=== PATIENT | female | born 1945 | race Caucasian/White ===

== ENCOUNTER 2016-11-05 04:11 | Emergency (ER) | payer MEDICARE ==
[2016-11-05 05:09] LABS: ABSOLUTE EOSINOPHILS # (AUTO) 0.1 10^3/uL (0.0-0.6); ABSOLUTE LYMPHOCYTES (AUTO) 1.7 10^3/uL (0.5-4.7); ABSOLUTE MONOCYTES (AUTO) 0.4 10^3/uL (0.1-1.4); ABSOLUTE NEUT (AUTO) 4.1 10^3/uL (1.7-8.2); BASOPHILS % (AUTO) 0.5 % (0-2); EOSINOPHILS % (AUTO) 1.3 % (0-6); HEMOGLOBIN 13.1 g/dL (12.0-15.5); HGB HCT DIFFERENCE -1.7; MEAN CORPUSCULAR HEMOGLOBIN 30.2 pg (27.0-33.4); MEAN CORPUSCULAR HGB CONC 31.9 g/dL (32.0-36.0); MEAN CORPUSCULAR VOLUME 95 fl (80-97); MONOCYTES % (AUTO) 6.3 % (3-13); RED BLOOD COUNT 4.34 10^6/uL (3.72-5.28); RED CELL DISTRIBUTION WIDTH 13.6 % (11.5-14.0); SEGMENTED NEUTROPHILS % (AUTO) 64.9 % (42-78); WHITE BLOOD COUNT 6.3 10^3/uL (4.0-10.5)
[2016-11-05 05:12] LABS: PROTHROMBIN TIME 11.9 SEC (11.4-15.4)
[2016-11-05 05:28] LABS: ALBUMIN 3.9 g/dL (3.5-5.0); ALKALINE PHOSPHATASE 73 U/L (38-126); ANION GAP 13 (5-19); ASPARTATE AMINO TRANSFERASE 16 U/L (14-36); BLOOD UREA NITROGEN 16 mg/dL (7-20); CALCIUM 9.3 mg/dL (8.4-10.2); CARBON DIOXIDE 26 mmol/L (22-30); CHLORIDE 103 mmol/L (98-107); CREATININE RESULT 0.83 mg/dL (0.52-1.25); GLUCOSE 135 mg/dL (75-110); POTASSIUM 4.3 mmol/L (3.6-5.0); SODIUM 141.6 mmol/L (137-145)
[2016-11-05 05:29] LABS: ALANINE AMINOTRANSFERASE 15 U/L (9-52); BILIRUBIN,TOTAL 0.7 mg/dL (0.2-1.3); CREATINE KINASE 35 U/L (30-135); TOTAL PROTEIN 6.4 g/dL (6.3-8.2)
[2016-11-05 05:42] LABS: CREATINE KINASE MB 0.32 ng/mL (<4.55)
[2016-11-05 05:44] LABS: TROPONIN I < 0.012 ng/mL
--- NOTE | 2016-11-05 06:41 | ER Document Report ---
ED Fall - General Mode of Arrival: Medic Information source: Patient TRAVEL OUTSIDE OF THE [place] IN LAST 30 DAYS: No - HPI Patient complains to provider of: Fall Occurred: This morning - 0100 Where: Home Associated symptoms: Difficulty walking - R. Knee Replaced Location of injury/pain: Head, Knee <ROSS RIVAS - Last Filed: 11/05/16 07:36> <JUANCARLOS EDWARDS - Last Filed: 11/05/16 07:52> - General Chief Complaint: Fall Stated Complaint: DIZZINESS Notes: Patient is a 71-year-old female presenting to the emergency department after falling down this morning at approximately 0100. Patient states that she has been having problems with her right knee ever since she had a knee replacement 7 -8 years ago at [facility]. Since then, patient has had a nerve block done 2 times ( 2016). Patient states that her right knee "just gives way." Patient complains of a headache from hitting her head when she fell. Patient states that she lives with her , but he was hooked up to his CPAP and did not hear her when she called for help this morning. (ROSS RIVAS) - Related data Allergies/Adverse Reactions: Penicillins Allergy (Verified 03/04/15 12:38) Past Medical History - General Information source: Patient - Social History Smoking Status: Current Every Day Smoker Cigarette use (# per day): Yes Lives with: Spouse/Significant other Family History: Reviewed & Not Pertinent - Past Medical History Cardiac Medical History: Reports: Hx Hypercholesterolemia, Hx Hypertension Pulmonary Medical History: Reports: Hx COPD Endocrine Medical History: Reports: Hx Diabetes Mellitus Type 2 Past Surgical History: Reports: Hx Appendectomy, Hx Orthopedic Surgery - R. knee replacement, Hx Tubal Ligation - Immunizations Hx Diphtheria, Pertussis, Tetanus Vaccination: Yes Hx Pneumococcal Vaccination: 07/17/12 <ROSS RIVAS - Last Filed: 11/05/16 07:36> Review of Systems - Review of Systems Constitutional: No symptoms reported EENT: No symptoms reported Cardiovascular: No symptoms reported Respiratory: No symptoms reported Gastrointestinal: No symptoms reported Genitourinary: No symptoms reported Female Genitourinary: No symptoms reported Musculoskeletal: See HPI, Joint pain - R. Knee Skin: No symptoms reported Hematologic/Lymphatic: No symptoms reported Neurological/Psychological: Headaches -: Yes All other systems reviewed and negative <ROSS RIVAS - Last Filed: 11/05/16 07:36> Physical Exam - Vital signs Interpretation: Normal - General General appearance: Appears well, Alert - HEENT Head: Normocephalic, Atraumatic Eyes: Normal Pupils: PERRL - Respiratory Respiratory status: No respiratory distress Chest status: Nontender Breath sounds: Wheezing - Mild wheezes Chest palpation: Normal - Cardiovascular Rhythm: Regular Heart sounds: Normal auscultation Murmur: No - Abdominal Inspection: Normal Distension: No distension Tenderness: Nontender - Back Back: Normal, Nontender - Extremities General upper extremity: Normal inspection General lower extremity: Tender. No: Edema Knee: Tender - R. Knee tenderness. No edema. - Neurological Neuro grossly intact: Yes Cognition: Normal [place] Coma Scale Eye Opening: Spontaneous [place] Coma Scale Verbal: Oriented [place] Coma Scale Motor: Obeys Commands [place] Coma Scale Total: 15 Speech: Normal - Psychological Associated symptoms: Normal affect, Normal mood - Skin Skin Temperature: Warm Skin Moisture: Dry Skin Color: Normal <ROSS RIVAS - Last Filed: 11/05/16 07:36> Course - Laboratory Result Diagrams: 11/05/16 04:53 11/05/16 04:53 <ROSS RIVAS - Last Filed: 11/05/16 07:36> - Laboratory Result Diagrams: 11/05/16 04:53 11/05/16 04:53 <JUANCARLOS EDWARDS - Last Filed: 11/05/16 07:52> - Vital Signs Vital signs: Temp Pulse Resp BP Pulse Ox 97.5 F 98 16 148/53 H 95 11/05/16 04:17 11/05/16 04:17 11/05/16 04:17 11/05/16 04:17 11/05/16 04:17 (ROSS RIVAS) (JUANCARLOS EDWARDS) - Laboratory Laboratory results interpreted by mn: 11/05/16 11/05/16 11/05/16 04:53 04:53 04:53 MCHC 31.9 L Glucose 135 H POC Glucose Lactic Acid 2.5 H Urine Ketones 11/05/16 11/05/16 05:00 06:52 MCHC Glucose POC Glucose 138 H Lactic Acid Urine Ketones 20 H (ROSS RIVAS) (JUANCARLOS EDWARDS) Discharge <ROSS RIVAS - Last Filed: 11/05/16 07:36> <JUANCARLOS EDWARDS - Last Filed: 11/05/16 07:52> - Discharge Clinical Impression: Recurrent falls while walking Knee pain, chronic Qualifiers: Laterality: right Qualified Code(s): M25.561 - Pain in right knee; G89.29 - Other chronic pain Condition: Stable Disposition: HOME, SELF-CARE Additional Instructions: You did not appear to suffer any injury from your last 2 falls. Follow-up with your primary care provider or your orthopedic surgeon to discuss the problems you're having with your knee giving out. Scribe Attestation: 11/05/16 07:52 I personally performed the services described in the documentation, reviewed and edited the documentation which was dictated to the scribe in my presence, and it accurately records my words and actions. (JUANCARLOS EDWARDS) Scribe Documentation - Scribe Written by Scribe:: Ross Rivas 11/05/2016 0641 acting as scribe for :: Bonnie <ROSS RIVAS - Last Filed: 11/05/16 07:36>
[2016-11-05 07:12] LABS: APPEARANCE,URINE SLIGHTLY-CLOUDY; BILIRUBIN,URINE NEGATIVE (NEGATIVE); GLUCOSE, URINE NEGATIVE (NEGATIVE); KETONES,URINE 20 mg/dL (NEGATIVE); LEUKOCYTE ESTERASE,URINE NEGATIVE (NEGATIVE); NITRITE,URINE NEGATIVE (NEGATIVE); PROTEIN,URINE NEGATIVE (NEGATIVE); URINE SPECIFIC GRAVITY 1.033; UROBILINOGEN,URINE NEGATIVE mg/dL (<2.0)
--- NOTE | 2016-11-05 08:12 | EKG REPORT ---
SEVERITY:- ABNORMAL ECG - SINUS RHYTHM NONSPECIFIC T ABNORMALITIES, LATERAL LEADS BORDERLINE PROLONGED QT INTERVAL : Confirmed by: Thiago Gomez MD 05-Nov-2016 08:11:50
[2016-11-05 08:15] VITALS: BP 136/56
== END 2016-11-05 08:16 | disposition home or self-care (01) ==
LOC: ER 04:11
DX: R51 Headache (principal); W19.XXXA Unspecified fall, initial encounter; Y92.009 Unspecified place in unspecified non-institutional (private) residence as the place of occurrence of the external cause; R29.6 Repeated falls; M25.561 Pain in right knee; G89.29 Other chronic pain; Z96.651 Presence of right artificial knee joint; F17.210 Nicotine dependence, cigarettes, uncomplicated; I10 Essential (primary) hypertension; J44.9 Chronic obstructive pulmonary disease, unspecified; E11.9 Type 2 diabetes mellitus without complications; Z88.0 Allergy status to penicillin
CPT/HCPCS: 36415; 70450; 71020; 80053; 81001; 82550; 82553; 82962; 83605; 84484; 85025; 85610; 87040; 87086; 93005; 93010; 99285

== ENCOUNTER 2017-01-11 15:07 | Emergency (ER) | payer MEDICARE ==
--- NOTE | 2017-01-11 16:39 | ER Document Report ---
HPI - HPI Patient complains to provider of: chronic left wrist pain Onset: Other - 2 years Onset/Duration: Persistent, Waxing and waning Pain Level: 4 Context: 71-year-old female with chronic left wrist pain after fracturing 3 years ago. She also gets inflammation and a wound that has not healed in 2 years. She had a recent biopsy by a director of online education and they called her and told her that it was negative. Her to Joaquin is her primary care doctor she's not had any MRI of the joint. No history of osteomyelitis. 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 No fever. Hx copd, dm 2. Associated Symptoms: None Exacerbated by: Denies Relieved by: Other - When lidocaine was inserted for the tissue biopsy Similar symptoms previously: Yes Recently seen / treated by doctor: Yes - ROS ROS below otherwise negative: Yes Systems Reviewed and Negative: Yes All other systems reviewed and negative - CARDIOVASCULAR Cardiovascular: DENIES: Chest pain - REPRODUCTIVE Reproductive: DENIES: : - DERM Skin Color: Normal, [place] Past Medical History - General Information source: Patient - Social History Smoking Status: Former Smoker Chew tobacco use (# tins/day): No Frequency of alcohol use: None Drug Abuse: None Lives with: Spouse/Significant other Family History: Reviewed & Not Pertinent Patient has suicidal ideation: No Patient has homicidal ideation: No - Past Medical History Cardiac Medical History: Reports: Hx Hypercholesterolemia, Hx Hypertension Pulmonary Medical History: Reports: Hx COPD Endocrine Medical History: Reports: Hx Diabetes Mellitus Type 2 Renal/ Medical History: Denies: Hx Peritoneal Dialysis Past Surgical History: Reports: Hx Appendectomy, Hx Orthopedic Surgery - R. knee replacement, Hx Tubal Ligation - Immunizations Hx Diphtheria, Pertussis, Tetanus Vaccination: Yes Hx Pneumococcal Vaccination: 07/17/12 Vertical Provider Document - CONSTITUTIONAL Agree With Documented VS: Yes - INFECTION CONTROL TRAVEL OUTSIDE OF THE [place] IN LAST 30 DAYS: No - HEENT HEENT: Normocephalic - NECK Neck: Supple - RESPIRATORY O2 Sat by Pulse Oximetry: 93 - MUSCULOSKELETAL/EXTREMETIES Musculoskeletal/Extremeties: MAEW, FROM, Tender - left ulnar styloid - NEURO Level of Consciousness: Awake, Alert, Appropriate Motor/Sensory: No Motor Deficit, No Sensory Deficit - DERM Integumentary: Rash - dense inflamed soft tissue over dorsal left wrist with round ulcer, 1cm, rolled borders. Course - Re-evaluation Re-evalutation: 01/11/17 16:[address] Edmond the radiologist to recommend getting a plain film to start with and that if that is negative Dr. Duke can order an MRI of the left wrist joint with and without contrast. 01/11/17 18:00 X-ray shows off tissue swelling but no bony osteomyelitis. 01/11/17 18:00 - Vital Signs Vital signs: Temp Pulse Resp BP Pulse Ox 98.3 F 83 18 168/56 H 93 01/11/17 15:30 01/11/17 15:30 01/11/17 15:35 01/11/17 15:30 01/11/17 15:30 Discharge - Discharge Clinical Impression: chronic ulcer left wrist, Inflammation, skin, Left wrist pain Condition: Good Disposition: HOME, SELF-CARE Instructions: Wound Infection ([facility]), Ulcer ([facility]), Chronic Pain Control ([facility]) Additional Instructions: use the lidocaine jelly to help relieve topical pain vaselin or bacitracin only with tegaderm over the wound to help heal it daily f/u with the director of online education see dr. duke for a outpatient order for MR with and without contrast of the wrist joint/skin per radiologist suggestion to look for destinee problems/bone infection/skin infection Please complete the patient satisfaction survey if you get one, and return it.. If you do not receive a survey, then you can go to the [facility] website, [email or web address] and place your comments about your very good care. Thank you very much. It was a pleasure being your medical provider today. Prescriptions: Clindamycin HCl [Cleocin 150 mg Capsule] 150 mg PO QID #30 capsule Lidocaine 15 gm TP TID #15 cream..g. Referrals: RAJESH DUKE MD [Primary Care Provider] - Follow up tomorrow
[2017-01-11] MEDS ORDERED: MORPHINE SULFATE 10 MG/ML INJ IV ONE (16:43)
[2017-01-11] MEDS ORDERED: LIDOCAINE 2% JELLY 5 ML TUBE TOP ONE (17:58)
[2017-01-11 18:18] VITALS: BP 160/60
== END 2017-01-11 18:18 | disposition home or self-care (01) ==
LOC: ER 15:07
DX: L98.499 Non-pressure chronic ulcer of skin of other sites with unspecified severity (principal); M25.532 Pain in left wrist; Z98.890 Other specified postprocedural states; Z79.899 Other long term (current) drug therapy; Z87.891 Personal history of nicotine dependence
CPT/HCPCS: 99283; 96374; 87070; 87205; 73110; J2270

== ENCOUNTER → 2017-02-01 | Outpatient (CLI) | payer MEDICARE | LOC: RAD 09:49 | PROVIDERS: ATTEND Family Medicine | DX: M86.9 Osteomyelitis, unspecified (principal); M19.032 Primary osteoarthritis, left wrist | CPT/HCPCS: 82565; 73220; A9576 ==

== ENCOUNTER 2017-03-31 17:53 | Emergency (ER) | payer MEDICARE ==
[2017-03-31] MEDS ORDERED: LIDOCAINE 2% JELLY 5 ML TUBE TOP ONE (19:01)
[2017-03-31] MEDS ORDERED: KETOROLAC TROMETHAMINE 60 MG/2 ML SDV IM ONE (19:02)
--- NOTE | 2017-03-31 19:04 | ER Document Report ---
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 no new injury - REPRODUCTIVE Reproductive: DENIES: : - DERM Skin Color: Normal Past Medical History - Social History Smoking Status: Current Every Day Smoker Family History: Reviewed & Not Pertinent Patient has suicidal ideation: No Patient has homicidal ideation: No - Past Medical History Cardiac Medical History: Reports: Hx Hypercholesterolemia, Hx Hypertension Pulmonary Medical History: Reports: Hx COPD Endocrine Medical History: Reports: Hx Diabetes Mellitus Type 2 Renal/ Medical History: Denies: Hx Peritoneal Dialysis Past Surgical History: Reports: Hx Appendectomy, Hx Orthopedic Surgery - R. knee replacement, Hx Tubal Ligation - Immunizations Hx Diphtheria, Pertussis, Tetanus Vaccination: Yes Hx Pneumococcal Vaccination: 07/17/12 Vertical Provider Document - CONSTITUTIONAL Agree With Documented VS: Yes Exam Limitations: No Limitations General Appearance: WD/WN, No Apparent Distress - INFECTION CONTROL TRAVEL OUTSIDE OF THE [place] IN LAST 30 DAYS: No - RESPIRATORY O2 Sat by Pulse Oximetry: 91 - CARDIOVASCULAR Pulses: Normal: Radial - MUSCULOSKELETAL/EXTREMETIES Musculoskeletal/Extremeties: MAEW, FROM, Non-Tender - of the wrist or hand, No Edema - NEURO Level of Consciousness: Awake, Alert, Appropriate Motor/Sensory: No Motor Deficit, No Sensory Deficit - DERM Integumentary: Warm, Dry Notes: ulceration that is tender to touch over distal ulnar head Course - Re-evaluation Re-evalutation: 03/31/17 22:08 Patient is a 72-year-old female presents with chronic left wrist pain that has been worked up for osteomyelitis given nonhealing ulceration by her primary care. She has been evaluated by Dr. Castillo being treated for osteoarthritis and is due to see him in 6 weeks. Patient has responded well to lidocaine jelly topically on her complaint. Was sent home with prescription and can follow-up with primary care. - Vital Signs Vital signs: Temp Pulse Resp BP Pulse Ox 98.5 F 117 H 18 156/71 H 91 L 03/31/17 18:09 03/31/17 18:09 03/31/17 18:09 03/31/17 18:09 03/31/17 18:09 Discharge - Discharge Clinical Impression: Chronic wrist pain Condition: Good Disposition: HOME, SELF-CARE Additional Instructions: use the lidocaine jelly to help relieve topical pain vaselin or bacitracin only with bandaid over the wound to help heal it daily f/u with Pain management Prescriptions: Lidocaine 15 gm TP TID #1 cream..g. Forms: Elevated Blood Pressure Referrals: RAJESH CISNEROS MD [COMMUNITY BASED STAFF] - Follow up as needed
[2017-03-31 19:47] VITALS: BP 148/69
== END 2017-03-31 19:35 | disposition home or self-care (01) ==
LOC: ER 17:53
DX: E11.622 Type 2 diabetes mellitus with other skin ulcer (principal); L98.499 Non-pressure chronic ulcer of skin of other sites with unspecified severity; M25.532 Pain in left wrist; G89.29 Other chronic pain; F17.200 Nicotine dependence, unspecified, uncomplicated; I10 Essential (primary) hypertension; J44.9 Chronic obstructive pulmonary disease, unspecified; M19.90 Unspecified osteoarthritis, unspecified site
CPT/HCPCS: 99283; 96372; J1885

== ENCOUNTER 2017-04-15 15:14 | Emergency (ER) | payer MEDICARE ==
[2017-04-15 15:23] VITALS: BP 141/73
--- NOTE | 2017-04-15 16:19 | ER Document Report ---
ED Medical Screen (RME) - General Chief Complaint: Wrist Pain Stated Complaint: LEFT WRIST PAIN Time Seen by Provider: 04/15/17 16:17 Mode of Arrival: Wheelchair Information source: Patient Notes: 72-year-old female presents to ED for complaint of left wrist pain swelling and "fluid draining out of it "for a long time now. She states she is not home until somebody can tell her what is wrong with her left wrist she states of nobody here will tell her that she will go to the another hospital. States that the doctor gave her some lidocaine to put on this wrist and the drainage started she states she knows she got lidocaine buildup in this wrist and some he needs to tell her what to do to get rid of it. She states she has been sick to her stomach and week and vomiting 1 week. She is also wheezing audibly. She has a history of COPD she has wheezes in all lungs inspiratory and expiratory. I have greeted and performed a rapid initial assessment of this patient. A comprehensive ED assessment and evaluation of the patient, analysis of test results and completion of medical decision making process will be conducted by an additional ED providers. TRAVEL OUTSIDE OF THE [place] IN LAST 30 DAYS: No - Related Data Allergies/Adverse Reactions: Penicillins Allergy (Verified 03/31/17 18:08) Past Medical History - Past Medical History Cardiac Medical History: Reports: Hx Hypercholesterolemia, Hx Hypertension Pulmonary Medical History: Reports: Hx COPD Endocrine Medical History: Reports: Hx Diabetes Mellitus Type 2 Renal/ Medical History: Denies: Hx Peritoneal Dialysis Musculoskeltal Medical History: Reports Hx Arthritis Past Surgical History: Reports: Hx Appendectomy, Hx Orthopedic Surgery - R. knee replacement, Hx Tubal Ligation - Immunizations Hx Diphtheria, Pertussis, Tetanus Vaccination: Yes Physical Exam - Vital signs Vitals: Temp Pulse Resp BP Pulse Ox 99.2 F 121 H 14 141/73 H 92 04/15/17 15:17 04/15/17 15:17 04/15/17 15:17 04/15/17 15:17 04/15/17 15:17 Course - Vital Signs Vital signs: Temp Pulse Resp BP Pulse Ox 99.2 F 121 H 14 141/73 H 92 04/15/17 15:17 04/15/17 15:17 04/15/17 15:17 04/15/17 15:17 04/15/17 15:17
[2017-04-15 16:49] LABS: ABSOLUTE BASOPHILS # (AUTO) 0.1 10^3/uL (0.0-0.2); ABSOLUTE EOSINOPHILS # (AUTO) 0.2 10^3/uL (0.0-0.6); ABSOLUTE LYMPHOCYTES (AUTO) 3.9 10^3/uL (0.5-4.7); ABSOLUTE MONOCYTES (AUTO) 0.8 10^3/uL (0.1-1.4); ABSOLUTE NEUT (AUTO) 4.3 10^3/uL (1.7-8.2); BASOPHILS % (AUTO) 0.7 % (0-2); EOSINOPHILS % (AUTO) 1.7 % (0-6); HEMATOCRIT 45.8 % (36.0-47.0); HEMOGLOBIN 14.7 g/dL (12.0-15.5); HGB HCT DIFFERENCE -1.7; LYMPHOCYTES % (AUTO) 42.4 % (13-45); MEAN CORPUSCULAR HEMOGLOBIN 30.7 pg (27.0-33.4); MEAN CORPUSCULAR HGB CONC 32.1 g/dL (32.0-36.0); MEAN CORPUSCULAR VOLUME 96 fl (80-97); SEGMENTED NEUTROPHILS % (AUTO) 46.2 % (42-78); WHITE BLOOD COUNT 9.3 10^3/uL (4.0-10.5)
[2017-04-15] MEDS ORDERED: IPRATROPIUM/ALBUTEROL 0.5-2.5 MG/3 ML AMPUL NEB ONE (16:57)
[2017-04-15] MEDS ORDERED: ALBUTEROL SULFATE 0.083% NEB 2.5 MG/3 ML AMPUL NEB SCH (17:00)
[2017-04-15 17:10] LABS: ALANINE AMINOTRANSFERASE 21 U/L (9-52); ALBUMIN 4.3 g/dL (3.5-5.0); ALKALINE PHOSPHATASE 78 U/L (38-126); ANION GAP 11 (5-19); ASPARTATE AMINO TRANSFERASE 19 U/L (14-36); BILIRUBIN,DIRECT 0.3 mg/dL (0.0-0.4); BILIRUBIN,TOTAL 0.7 mg/dL (0.2-1.3); BLOOD UREA NITROGEN 11 mg/dL (7-20); CALCIUM 9.9 mg/dL (8.4-10.2); CARBON DIOXIDE 28 mmol/L (22-30); CHLORIDE 101 mmol/L (98-107); GLUCOSE 131 mg/dL (75-110); POTASSIUM 5.1 mmol/L (3.6-5.0); SODIUM 139.5 mmol/L (137-145); TOTAL PROTEIN 7.4 g/dL (6.3-8.2)
--- NOTE | 2017-04-15 17:14 | RADIOLOGY REPORT (SQ) ---
EXAM DESCRIPTION: CHEST PA/LAT COMPLETED DATE/TIME: 04/15/2017 4:39 pm REASON FOR STUDY: short of breath and wheezing COMPARISON: 11/05/2016 EXAM PARAMETERS: NUMBER OF VIEWS: two views TECHNIQUE: Digital Frontal and Lateral radiographic views of the chest acquired. RADIATION DOSE: NA LIMITATIONS: none FINDINGS: LUNGS AND PLEURA: Minimal parenchymal opacity at the right base. Left lung is clear. Und erlying COPD with hyperinflation. MEDIASTINUM AND HILAR STRUCTURES: No masses or contour abnormalities. HEART AND VASCULAR STRUCTURES: Heart normal size. No evidence for failure. BONES: No acute findings. HARDWARE: None in the chest. OTHER: No other significant finding. 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 TECHNICAL DOCUMENTATION: JOB ID: [id number] [employer]- All Rights Reserved
--- NOTE | 2017-04-15 23:55 | ER Document Report ---
ED General - General Chief Complaint: Wrist Pain Stated Complaint: LEFT WRIST PAIN Time Seen by Provider: 04/15/17 16:17 Mode of Arrival: Wheelchair Information source: Patient Notes: This 72-year-old female with a history of COPD and a long history of left wrist arthritis who presents to the emergency room with swelling of the left wrist. There is any fever, chills, nausea or vomiting. She denies any cough or any increased sputum production. Patient states that she has been seen by the orthopedic surgeon for this and that he is injected the area with steroids but it has not worked. Is also seen her primary care doctor (Dr. Cisneros) for the same. TRAVEL OUTSIDE OF THE [place] IN LAST 30 DAYS: No - HPI Onset: Other - the past year Onset/Duration: Gradual Quality of pain: Achy Severity: Mild Pain Level: 1 Associated symptoms: denies: Chills, Fever, Shortness of breath Exacerbated by: Denies Relieved by: Denies Similar symptoms previously: Yes Recently seen / treated by doctor: Yes - Related Data Allergies/Adverse Reactions: Penicillins Allergy (Verified 03/31/17 18:08) Past Medical History - General Information source: Patient - Social History Smoking Status: Current Every Day Smoker Cigarette use (# per day): Yes - 3 Cigarettes a day Chew tobacco use (# tins/day): No Frequency of alcohol use: None Drug Abuse: None Lives with: Alone Family History: Reviewed & Not Pertinent Patient has suicidal ideation: No Patient has homicidal ideation: No - Past Medical History Cardiac Medical History: Reports: Hx Hypercholesterolemia, Hx Hypertension Pulmonary Medical History: Reports: Hx COPD Endocrine Medical History: Reports: Hx Diabetes Mellitus Type 2 Renal/ Medical History: Denies: Hx Peritoneal Dialysis Musculoskeltal Medical History: Reports Hx Arthritis Past Surgical History: Reports: Hx Appendectomy, Hx Orthopedic Surgery - R. knee replacement, Hx Tubal Ligation - Immunizations Hx Diphtheria, Pertussis, Tetanus Vaccination: Yes Hx Pneumococcal Vaccination: 07/17/12 Review of Systems - Review of Systems Constitutional: denies: Chills, Fever EENT: No symptoms reported Cardiovascular: No symptoms reported Respiratory: Other - The patient does have COPD and has a chronic cough and does wheeze often. She does not have any worsening symptoms. Gastrointestinal: No symptoms reported Genitourinary: No symptoms reported Musculoskeletal: See HPI Skin: No symptoms reported Hematologic/Lymphatic: No symptoms reported Neurological/Psychological: No symptoms reported Physical Exam - Vital signs Vitals: Temp Pulse Resp BP Pulse Ox 99.2 F 121 H 14 141/73 H 92 04/15/17 15:17 04/15/17 15:17 04/15/17 15:17 04/15/17 15:17 04/15/17 15:17 Notes: Physical exam: GENERAL: 2-year-old female, alert and oriented 3, no acute distress HEAD: Atraumatic, normocephalic. EYES: Pupils equal round and reactive to light, extraocular movements intact, sclera anicteric, conjunctiva are normal. ENT: Moist mucous membranes. NECK: Normal range of motion, supple without lymphadenopathy or JVD. LUNGS: Scattered wheezing bilaterally. Patient does not appear in any significant respiratory distress. Crackles heard on exam. HEART: Regular rate and rhythm without murmurs, rubs or gallops. ABDOMEN: Soft, normoactive bowel sounds. No tenderness to palpation. No guarding, no rebound. No masses appreciated. EXTREMITIES: Does have some swelling over the left distal ulna. There is no erythema. She does have some scratch bhakta over the site. It will be any cellulitis NEUROLOGICAL: Cranial nerves II through XII grossly intact. Normal speech, normal gait. PSYCH: Normal mood, normal affect. SKIN: Noted above. Course - Re-evaluation Re-evalutation: 04/15/17 23:53 : The patient is not here for respiratory complaints and has been ambulating without difficulty. She is frustrated over her left wrist and has been evalauated by orthoapedics and was told she has arthritis. From a pulmonary point of view, the patient is stable. There is no evidence of pneumonia. From an orthopedic standpoint, she either has arthritis or bursitis. In any event, the area in question does not appear cellulitic and there does not appear to be any infection in the joint. Plan will be for her to follow-up as an outpatient. The patient did walk out on her own volition before discharge instructions were given. - Vital Signs Vital signs: Temp Pulse Resp BP Pulse Ox 99.2 F 121 H 14 141/73 H 92 04/15/17 15:17 04/15/17 15:17 04/15/17 15:17 04/15/17 15:17 04/15/17 15:17 - Laboratory Result Diagrams: 04/15/17 16:25 04/15/17 16:25 Laboratory results interpreted by me: 04/15/17 16:25 Potassium 5.1 H Glucose 131 H - Diagnostic Test Radiology reviewed: Image reviewed, Reports reviewed - Chest x-ray shows possible right infiltrate. The patient has not had any worsening symptoms of cough, fever or shortness of breath. Discharge - Discharge Clinical Impression: Wrist arthritis Condition: Stable Disposition: AGAINST MEDICAL ADVICE Referrals: CHRISTINE CISNEROS NP [Primary Care Provider] - Follow up as needed
== END 2017-04-15 19:25 | disposition home or self-care (01) ==
LOC: ER 15:14
DX: M19.032 Primary osteoarthritis, left wrist (principal); J44.9 Chronic obstructive pulmonary disease, unspecified; I10 Essential (primary) hypertension; E11.9 Type 2 diabetes mellitus without complications; R05 Cough; Z88.0 Allergy status to penicillin
CPT/HCPCS: 94640 ×2; 99283; 36415; 85025; 80053; 71020; A9270 ×2; J7620

== ENCOUNTER → 2017-04-18 | Outpatient (CLI) | payer MEDICARE ==
[2017-04-18 14:22] LABS: C-REACTIVE PROTEIN 13.3 mg/L (<10.0); URIC ACID 5.5 mg/dL (2.5-7.5)
[2017-04-20 07:57] LABS: LYME DISEASE IGG AND IGM AB <0.91 ISR (0.00-0.90)
== END ==
LOC: OD 12:48
PROVIDERS: ATTEND Orthopaedic Surgery
DX: M19.032 Primary osteoarthritis, left wrist (principal)
CPT/HCPCS: 36415; 84550; 85652; 86038; 86140; 86200; 86430; 86617; 86618

== ENCOUNTER 2017-04-28 01:23 | Emergency (ER) | payer MEDICARE ==
[2017-04-28] MEDS ORDERED: NORMAL SALINE 1000 ML 1,000 ML IV ONE (02:44)
[2017-04-28] MEDS ORDERED: ONDANSETRON HCL INJ/PF 4 MG/2 ML SDV IV ONE (02:44)
[2017-04-28] MEDS ORDERED: MORPHINE SULFATE 10 MG/ML INJ IV ONE (02:45)
[2017-04-28 03:14] LABS: ABSOLUTE BASOPHILS # (AUTO) 0.1 10^3/uL (0.0-0.2); ABSOLUTE LYMPHOCYTES (AUTO) 1.1 10^3/uL (0.5-4.7); ABSOLUTE MONOCYTES (AUTO) 0.3 10^3/uL (0.1-1.4); ABSOLUTE NEUT (AUTO) 8.9 10^3/uL (1.7-8.2); BASOPHILS % (AUTO) 0.6 % (0-2); EOSINOPHILS % (AUTO) 0.1 % (0-6); HEMATOCRIT 44.1 % (36.0-47.0); HEMOGLOBIN 14.3 g/dL (12.0-15.5); HGB HCT DIFFERENCE -1.2; LYMPHOCYTES % (AUTO) 10.9 % (13-45); MEAN CORPUSCULAR HGB CONC 32.5 g/dL (32.0-36.0); MEAN CORPUSCULAR VOLUME 95 fl (80-97); MONOCYTES % (AUTO) 2.7 % (3-13); RED BLOOD COUNT 4.62 10^6/uL (3.72-5.28); RED CELL DISTRIBUTION WIDTH 13.7 % (11.5-14.0); SEGMENTED NEUTROPHILS % (AUTO) 85.7 % (42-78); WHITE BLOOD COUNT 10.4 10^3/uL (4.0-10.5)
[2017-04-28 03:25] LABS: ALANINE AMINOTRANSFERASE 17 U/L (9-52); ALBUMIN 4.2 g/dL (3.5-5.0); ALKALINE PHOSPHATASE 69 U/L (38-126); ANION GAP 14 (5-19); ASPARTATE AMINO TRANSFERASE 20 U/L (14-36); BILIRUBIN,DIRECT 0.4 mg/dL (0.0-0.4); BILIRUBIN,TOTAL 0.7 mg/dL (0.2-1.3); BLOOD UREA NITROGEN 19 mg/dL (7-20); CALCIUM 9.8 mg/dL (8.4-10.2); CARBON DIOXIDE 18 mmol/L (22-30); CHLORIDE 107 mmol/L (98-107); CREATININE RESULT 0.95 mg/dL (0.52-1.25); GLUCOSE 188 mg/dL (75-110); POTASSIUM 5.3 mmol/L (3.6-5.0); SODIUM 139.4 mmol/L (137-145); TOTAL PROTEIN 7.2 g/dL (6.3-8.2)
--- NOTE | 2017-04-28 04:50 | ER Document Report ---
ED General - General Chief Complaint: Wrist Pain Stated Complaint: WRIST PAIN W NAUSEA Time Seen by Provider: 04/28/17 02:38 Notes: Patient is a 72-year-old female comes emergency department for chief complaint of pain in her left wrist and also nausea with vomiting. She states that for the past couple of days she has had no appetite and she has thrown up several times. She denies any fever, chills, dysuria, flank pain, abdominal pain, chest pain, or lightheadedness. She states that she started using a topical lidocaine cream on her wrist prescribed by orthopedics, she states after this she started getting the nausea. She states she has not had any pain in her abdomen whatsoever, she is moving her bowels normally. Past medical history of hypertension, type 2 diabetes, hyperlipidemia, arthritis, appendectomy. She states she had an MRI of her left upper extremity and no specific abnormality was noted. TRAVEL OUTSIDE OF THE [place] IN LAST 30 DAYS: No - Related Data Allergies/Adverse Reactions: Penicillins Allergy (Verified 03/31/17 18:08) Past Medical History - General Information source: Patient - Social History Smoking Status: Current Some Day Smoker Frequency of alcohol use: Occasional Drug Abuse: None Lives with: Family Family History: Reviewed & Not Pertinent Patient has suicidal ideation: No Patient has homicidal ideation: No - Past Medical History Cardiac Medical History: Reports: Hx Hypercholesterolemia, Hx Hypertension Pulmonary Medical History: Reports: Hx COPD Endocrine Medical History: Reports: Hx Diabetes Mellitus Type 2 Renal/ Medical History: Denies: Hx Peritoneal Dialysis Musculoskeltal Medical History: Reports Hx Arthritis Past Surgical History: Reports: Hx Appendectomy, Hx Orthopedic Surgery - R. knee replacement, Hx Tubal Ligation - Immunizations Hx Diphtheria, Pertussis, Tetanus Vaccination: Yes Hx Pneumococcal Vaccination: 07/17/12 Review of Systems - Review of Systems Constitutional: No symptoms reported EENT: No symptoms reported Cardiovascular: No symptoms reported Respiratory: No symptoms reported Gastrointestinal: See HPI Genitourinary: No symptoms reported Female Genitourinary: No symptoms reported Musculoskeletal: No symptoms reported Skin: No symptoms reported Hematologic/Lymphatic: No symptoms reported Neurological/Psychological: No symptoms reported Physical Exam - Vital signs Vitals: Temp Pulse Resp BP Pulse Ox 97.4 F 109 H 20 161/79 H 94 04/28/17 01:58 04/28/17 01:58 04/28/17 01:58 04/28/17 01:58 04/28/17 01:58 Interpretation: Normal - General General appearance: Appears well, Alert In distress: None - Patient alert, well appearing - HEENT Head: Normocephalic, Atraumatic Eyes: Normal Extraocular movements intact: Yes Eyelashes: Normal Pupils: PERRL Nasal: Normal Mouth/Lips: Normal Mucous membranes: Normal Pharynx: Normal Neck: Normal - Respiratory Respiratory status: No respiratory distress Chest status: Nontender Breath sounds: Normal. No: Decreased air movement, Wheezing Chest palpation: Normal - Cardiovascular Rhythm: Regular, Tachycardia - borderline Heart sounds: Normal auscultation, S1 appreciated, S2 appreciated Murmur: No - Abdominal Inspection: Normal Distension: No distension Bowel sounds: Normal Tenderness: Nontender - Completely nontender abdomen throughout. No: Tender, McBurney's point, Hogan's sign, Guarding Organomegaly: No organomegaly - Back Back: Normal, Nontender. No: Tender, CVA tenderness - Extremities General upper extremity: Other - There is some increased size aspect of the left wrist, appears to be mild soft tissue swelling, no significant arrhythmia, not significantly tender, no spreading erythema around it, normal capillary refill and sensation, normal upper extremity exam otherwise General lower extremity: Normal inspection, Nontender, Normal color, Normal ROM , Normal temperature, Normal weight bearing. No: Comfort's sign - Neurological Neuro grossly intact: Yes Cognition: Normal Orientation: AAOx4 [place] Coma Scale Eye Opening: Spontaneous [place] Coma Scale Verbal: Oriented Drew Coma Scale Motor: Obeys Commands [place] Coma Scale Total: 15 Speech: Normal Motor strength normal: LUE, RUE, LLE, RLE Sensory: Normal - Psychological Associated symptoms: Normal affect, Normal mood - Skin Skin Temperature: Warm Skin Moisture: Dry Skin Color: Normal Course - Re-evaluation Re-evalutation: Abdomen completely non-tender. Wrist exam unremarkable, does not appear to be an infection. Nausea resolved after medications, patient asking for fluids. CBC , chemistry nonspecific. Patient has not given a urine yet. Reexamined the patient's abdomen, still completely soft and benign. I did discuss CAT scan imaging because of patient's vomiting, she declined. Patient states she "spit up a little" after phenergan. She states she went to the medication that resolved on her tongue. Vitals unremarkable, workup unremarkable including urinalysis does not show any dehydration, well-appearing patient with soft abdomen. Patient will be discharged with nausea medication, follow-up recommendations with orthopedics, return precautions to the emergency department. Discussed with both patient and , they state agreement and satisfaction. - Vital Signs Vital signs: Temp Pulse Resp BP Pulse Ox 97.4 F 82 20 159/69 H 94 04/28/17 01:58 04/28/17 06:21 04/28/17 06:21 04/28/17 06:21 04/28/17 01:58 - Laboratory Result Diagrams: 04/28/17 03:02 04/28/17 03:02 Laboratory results interpreted by me: 04/28/17 04/28/17 03:02 03:02 Seg Neutrophils % 85.7 H Lymphocytes % 10.9 L Monocytes % 2.7 L Absolute Neutrophils 8.9 H Potassium 5.3 H Carbon Dioxide 18 L Est GFR (Non-Af Amer) 58 L Glucose 188 H Discharge - Discharge Clinical Impression: Left wrist pain Nausea and vomiting Qualifiers: Vomiting type: unspecified Vomiting Intractability: non-intractable Qualified Code(s): R11.2 - Nausea with vomiting, unspecified Condition: Stable Disposition: HOME, SELF-CARE Additional Instructions: Your workup and examination does not show any concerning abnormality. Take the Zofran for nausea, start with fluids, progress to bland foods. Only take the given pain medication if needed, you can cut this in half to begin with. Follow-up with orthopedics for management of your wrist Return to the Emergency department immediately if you develop any concerning or worsening symptoms including abdominal pain, fever, return for uncontrolled vomiting, or any other concerning symptoms per Prescriptions: Ondansetron [Zofran Odt 4 mg Tablet] 1 - 2 tab PO Q4H PRN #15 tab.rapdis PRN Reason: For Nausea/Vomiting
[2017-04-28 05:07] LABS: APPEARANCE,URINE CLEAR; BILIRUBIN,URINE NEGATIVE (NEGATIVE); GLUCOSE, URINE NEGATIVE (NEGATIVE); KETONES,URINE NEGATIVE (NEGATIVE); LEUKOCYTE ESTERASE,URINE NEGATIVE (NEGATIVE); NITRITE,URINE NEGATIVE (NEGATIVE); PROTEIN,URINE NEGATIVE (NEGATIVE); URINE SPECIFIC GRAVITY 1.019; UROBILINOGEN,URINE NEGATIVE mg/dL (<2.0)
[2017-04-28] MEDS ORDERED: PROMETHAZINE HCL 25 MG TABLET PO ONE (05:28)
[2017-04-28 06:22] VITALS: BP 159/69
[2017-04-28] MEDS ORDERED: ONDANSETRON ODT 4 MG TAB (6 TAB/DSPK) PO PRN (06:31)
[2017-04-28] MEDS ORDERED: HYDROCODONE/ACETAMINOPHEN 5-325 MG 6 TAB/DSPK PO PRN (06:31)
--- NOTE | 2017-04-28 08:20 | EKG REPORT ---
SEVERITY:- ABNORMAL ECG - SINUS RHYTHM GENARO, CONSIDER BIATRIAL ABNORMALITIES NONSPECIFIC T ABNORMALITIES, LATERAL LEADS : Confirmed by: Thiago Gomez MD 28-Apr-2017 08:19:25
== END 2017-04-28 06:52 | disposition home or self-care (01) ==
LOC: ER 01:23
DX: M25.532 Pain in left wrist (principal); R11.2 Nausea with vomiting, unspecified; F17.200 Nicotine dependence, unspecified, uncomplicated
CPT/HCPCS: 93005; 99284; 96361; 96374; 96375; 36415; 83690; 85025; 80053; 81001; 93010; J2270; A9270 ×3; J2405

== ENCOUNTER → 2017-05-25 | Outpatient (CLI) | payer MEDICARE | LOC: OD 13:35 | PROVIDERS: ATTEND Specialist | DX: G43.909 Migraine, unspecified, not intractable, without status migrainosus (principal); F32.9 Major depressive disorder, single episode, unspecified; R63.4 Abnormal weight loss | CPT/HCPCS: 36415; 84550 ==

== ENCOUNTER 2017-07-05 15:52 | Emergency (ER) | payer MEDICARE ==
--- NOTE | 2017-07-05 17:04 | ER Document Report ---
ED Psych Disorder / Suicide - General Chief Complaint: Psych Problem Stated Complaint: IVC W/PAPERS Time Seen by Provider: 07/05/17 16:18 Information source: Patient, Relative, [facility] Records TRAVEL OUTSIDE OF THE [place] IN LAST 30 DAYS: No - HPI Patient complains to provider of: Agitated - per IVC, Bizarre behavior - per IVC , Suicidal ideation - per IVC Onset: Just prior to arrival Onset was: Sudden Suicide Risk Factors: Other Situational problems related to: Son - one son overdosed last night Normal mood: Yes Associated symptoms: Normal affect, Normal mood, Anxious, Irritable Similar symptoms previously: No Recently seen / treated by doctor: Yes Notes: Patient is a 72 year old female who presents via law enforcement under IVC, petitioned by mobile crisis. Per IVC, patient has previously been diagnosed with Bipolar, is prescribed Percocet, and is exhibiting aggressive behavior by caring a knife, threatening to use it to kill herself and others. Patient herself denies this. She states she returned home from checking her son's trailer to find this mobile crisis lady. Patient states her son overdosed last night and her left early this morning to drive him down to treatment in [place]. Patient states her son's friend, Gibson was with her all day, with the exception of him leaving to go to a doctor's appointment. Patient denies suicidal ideations. She states she has never met the woman who IVC her before. Mobile Crisis states EMS was called by her and son early this morning because she was threatening to cut herself and commit suicide. and son found her overdosed in her bedroom and had to wake her up off the floor. Mobile [employer] states the called EMS and once they broke into the bedroom , they attempted to determine how many pills she took; however states the patient has been carrying the pills stuffed in her underwear and have been unable to determine. and son reported to mobile crisis that the patient has been carrying a agriculture intern knife around with her at all times, and has been threatening. Mobile Crisis states the patient was not cooperative with her, and stated in her presence that if the people didn't leave their home, she would hurt them and kill themselves. [employer] states there was not another individual to coordinate supervision or to sit with her throughout the day, and felt there was an overall safety risk. , : multiple attempts were made at contacting to gather additional information. At this time, without obtaining collateral information, disposition cannot be made. Patient denies the reports on the IVC; however, mobile crisis maintains the patient's called to report an overdose and suicidal ideations. Without gathering 's reports, it is unclear of any safe discharge plan. Discussed with Dr. Owen the concerns over inability to verify patient's reports and or background from this morning. MD is in agreement to continue IVC and evaluate at a later time, likely in the morning. I consulted with Dr. Bright in regards to the care and management of this patient. - Related Data Allergies/Adverse Reactions: Penicillins Allergy (Verified 03/31/17 18:08) Past Medical History - Social History Smoking Status: Current Every Day Smoker Chew tobacco use (# tins/day): No Frequency of alcohol use: None Drug Abuse: None Family History: Reviewed & Not Pertinent Patient has suicidal ideation: Yes Patient has homicidal ideation: Yes - Past Medical History Cardiac Medical History: Reports: Hx Hypercholesterolemia, Hx Hypertension Pulmonary Medical History: Reports: Hx COPD Endocrine Medical History: Reports: Hx Diabetes Mellitus Type 2 Renal/ Medical History: Denies: Hx Peritoneal Dialysis Musculoskeltal Medical History: Reports Hx Arthritis Past Surgical History: Reports: Hx Appendectomy, Hx Orthopedic Surgery - R. knee replacement, Hx Tubal Ligation - Immunizations Hx Diphtheria, Pertussis, Tetanus Vaccination: Yes Hx Pneumococcal Vaccination: 07/17/12 Physical Exam - Vital signs Vitals: Temp Pulse Resp BP Pulse Ox 98.6 F 107 H 16 190/75 H 96 07/05/17 16:03 07/05/17 16:03 07/05/17 16:03 07/05/17 16:03 07/05/17 16:03 Course - Vital Signs Vital signs: Temp Pulse Resp BP Pulse Ox 98.6 F 107 H 16 190/75 H 96 07/05/17 16:03 07/05/17 16:03 07/05/17 16:03 07/05/17 16:03 07/05/17 16:03
[2017-07-05 17:26] LABS: APPEARANCE,URINE SLIGHTLY-CLOUDY; BILIRUBIN,URINE NEGATIVE (NEGATIVE); GLUCOSE, URINE NEGATIVE (NEGATIVE); KETONES,URINE NEGATIVE (NEGATIVE); LEUKOCYTE ESTERASE,URINE SMALL (NEGATIVE); NITRITE,URINE NEGATIVE (NEGATIVE); PROTEIN,URINE NEGATIVE (NEGATIVE); URINE SPECIFIC GRAVITY 1.016; UROBILINOGEN,URINE NEGATIVE mg/dL (<2.0)
[2017-07-05 17:37] LABS: URINE BARBITURATES SCREEN NEGATIVE; URINE METHADONE SCREEN NEGATIVE; URINE OPIATES LOW NEGATIVE; URINE PHENCYCLIDINE SCREEN NEGATIVE
[2017-07-05 18:11] LABS: ABSOLUTE BASOPHILS # (AUTO) 0.1 10^3/uL (0.0-0.2); ABSOLUTE EOSINOPHILS # (AUTO) 0.2 10^3/uL (0.0-0.6); ABSOLUTE LYMPHOCYTES (AUTO) 2.8 10^3/uL (0.5-4.7); ABSOLUTE MONOCYTES (AUTO) 0.6 10^3/uL (0.1-1.4); BASOPHILS % (AUTO) 0.6 % (0-2); EOSINOPHILS % (AUTO) 2.2 % (0-6); HEMATOCRIT 38.8 % (36.0-47.0); HEMOGLOBIN 13.1 g/dL (12.0-15.5); HGB HCT DIFFERENCE 0.5; LYMPHOCYTES % (AUTO) 32.5 % (13-45); MEAN CORPUSCULAR HEMOGLOBIN 31.9 pg (27.0-33.4); MEAN CORPUSCULAR HGB CONC 33.7 g/dL (32.0-36.0); MEAN CORPUSCULAR VOLUME 95 fl (80-97); MONOCYTES % (AUTO) 7.5 % (3-13); RED BLOOD COUNT 4.09 10^6/uL (3.72-5.28); RED CELL DISTRIBUTION WIDTH 13.5 % (11.5-14.0); SEGMENTED NEUTROPHILS % (AUTO) 57.2 % (42-78); WHITE BLOOD COUNT 8.7 10^3/uL (4.0-10.5)
--- NOTE | 2017-07-05 18:30 | EKG REPORT ---
SEVERITY:- OTHERWISE NORMAL ECG - SINUS TACHYCARDIA : Confirmed by: Thiago Gomez MD 05-Jul-2017 18:29:38
[2017-07-05 18:34] LABS: ALANINE AMINOTRANSFERASE 20 U/L (9-52); ALBUMIN 3.5 g/dL (3.5-5.0); ALKALINE PHOSPHATASE 65 U/L (38-126); ANION GAP 9 (5-19); ASPARTATE AMINO TRANSFERASE 14 U/L (14-36); BILIRUBIN,DIRECT 0.4 mg/dL (0.0-0.4); BILIRUBIN,TOTAL 0.5 mg/dL (0.2-1.3); BLOOD UREA NITROGEN 11 mg/dL (7-20); CALCIUM 9.8 mg/dL (8.4-10.2); CARBON DIOXIDE 21 mmol/L (22-30); CHLORIDE 109 mmol/L (98-107); CREATININE RESULT 0.61 mg/dL (0.52-1.25); GLUCOSE 163 mg/dL (75-110); POTASSIUM 4.3 mmol/L (3.6-5.0); SODIUM 139.4 mmol/L (137-145)
[2017-07-05 18:39] LABS: ALCOHOL < 10 mg/dL (NONE DETECTED)
[2017-07-05] MEDS ORDERED: HYDROXYZINE PAMOATE 50 MG CAPSULE PO ONE (19:12)
--- NOTE | 2017-07-05 23:33 | ER Document Report ---
ED Psych Disorder / Suicide - General Chief Complaint: Psych Problem Stated Complaint: IVC W/PAPERS Time Seen by Provider: 07/05/17 16:18 Notes: Patient was brought in under IVC order for reportedly aggressive, bizarre behavior. She supposedly has a bipolar disorder. Says that her was taking her son to [place] to a rehab center. While they have been gone, patient has reportedly been acting unusual and at one point held a knife, although I do not have any information that she threatened anyone, including herself. Patient also has a history of substance abuse. She reportedly is not sleeping well and not paying any attention to her personal hygiene. TRAVEL OUTSIDE OF THE [place] IN LAST 30 DAYS: No - Related Data Allergies/Adverse Reactions: Penicillins Allergy (Verified 03/31/17 18:08) Home Medications: Current Home Medications Alprazolam [Xanax 1 mg Tablet] 0.5 tab PO TID 07/05/17 [History] Donepezil HCl [Donepezil HCl] 1 tab PO QHS 07/05/17 [History] Oxycodone HCl/Acetaminophen [Oxycodon-Acetaminophen 7.5-325] 1 tab PO Q8 PRN [History] Trazodone HCl 150 mg PO QHS 07/05/17 [History] Past Medical History - General Information source: Patient, Relative, [facility] Records - Social History Smoking Status: Current Every Day Smoker Chew tobacco use (# tins/day): No Frequency of alcohol use: None Drug Abuse: None Family History: Reviewed & Not Pertinent Patient has suicidal ideation: Yes Patient has homicidal ideation: Yes - Past Medical History Cardiac Medical History: Reports: Hx Hypercholesterolemia, Hx Hypertension Pulmonary Medical History: Reports: Hx COPD Endocrine Medical History: Reports: Hx Diabetes Mellitus Type 2 Musculoskeltal Medical History: Reports Hx Arthritis Past Surgical History: Reports: Hx Appendectomy, Hx Orthopedic Surgery - R. knee replacement, Hx Tubal Ligation - Immunizations Hx Diphtheria, Pertussis, Tetanus Vaccination: Yes Hx Pneumococcal Vaccination: 07/17/12 Review of Systems - Review of Systems -: Yes ROS unobtainable due to patient's medical condition - Patient is rather dramatic and hysterical, very loud making ROS impossible Constitutional: denies: Fever Cardiovascular: denies: Chest pain Physical Exam - Vital signs Vitals: Temp Pulse Resp BP Pulse Ox 98.6 F 115 H 20 190/75 H 95 07/05/17 15:59 07/05/17 15:59 07/05/17 15:59 07/05/17 15:59 07/05/17 15:59 Interpretation: Hypertensive - Mild, Tachycardic - Mild - Notes Notes: PHYSICAL EXAMINATION: Very hysterical, talking on the phone with her , who is out of town. Eventually calm down talk to me. I have taken care of this patient as well as members of her family many times over the years. GENERAL: Very loud and screaming and hysterical and in tears. HEAD: Atraumatic, normocephalic. EYES: Pupils equal round and reactive to light, extraocular movements intact. ENT: oropharynx clear without exudates. Moist mucous membranes. NECK: Normal range of motion, supple. LUNGS: Breath sounds clear and equal bilaterally. HEART: Regular rate and rhythm without murmurs. ABDOMEN: Soft, nontender. No guarding or rebound. BACK: No tenderness throughout entire back. EXTREMITIES: Normal range of motion without pain. NEUROLOGICAL: Normal speech, normal gait. Normal sensory, motor, and reflex exams. Awake, alert, and oriented x3. Cranial nerves normal. PSYCH: See above. After calming down, patient able to answer questions and carry on an SKIN: Warm, dry, no rashes. Course - Vital Signs Vital signs: Temp Pulse Resp BP Pulse Ox 98.7 F 113 H 24 H 198/80 H 97 07/05/17 19:45 07/05/17 19:45 07/05/17 19:45 07/05/17 19:45 07/05/17 19:45 - Laboratory Result Diagrams: 07/05/17 17:58 07/05/17 17:58 Laboratory results interpreted by me: 07/05/17 07/05/17 17:00 17:58 Chloride 109 H Carbon Dioxide 21 L Glucose 163 H Total Protein 6.0 L Ur Leukocyte Esterase SMALL H Salicylates < 1.0 L Acetaminophen < 10 L 07/05/17 23:34 Initial labs all essentially normal. Discharge - Discharge Referrals: JOSE GIMENEZ MD [Primary Care Provider] - Follow up as needed
[2017-07-06] MEDS ORDERED: TRAZODONE HCL 50 MG TABLET PO ONE (01:05)
[2017-07-06] MEDS ORDERED: METFORMIN HCL 500 MG TABLET PO ONE (01:06)
--- NOTE | 2017-07-06 01:57 | ER Document Report ---
Doctor's Note Notes: 07/06/17 01:57 Patient has become emotionally upset. Security was able calm her down. After about walked away as she did not start saying she had chest pain. EKG was obtained. EKG shows normal sinus rhythm with a rate of [address] segment elevation. No ischemic T-wave inversions. SC interval, QRS duration are within normal range. QTc interval slightly prolonged.
--- NOTE | 2017-07-06 08:25 | EKG REPORT ---
SEVERITY:- ABNORMAL ECG - SINUS RHYTHM CONSIDER ANTEROSEPTAL INFARCT PROLONGED QT INTERVAL : Confirmed by: Thiago Gomez MD 06-Jul-2017 08:24:38
--- NOTE | 2017-07-06 10:06 | ER Document Report ---
Doctor's Note Notes: 07/06/17 10:05 Seen and evaluated the patient reviewed labs and vital signs. She has no complaints now seems somewhat mildly disoriented. Talking about a different Medical Center. She has no current evidence of suicidal homicidal ideation. She has no complaints. Psychiatry has seen her and are going to discuss further with Dr. Bright. They are going to attempt to stabilize her on medications. They have been unable to get a hold of the . 07/07/17 11:43 Patient seen and evaluated today. She is eating breakfast and has no complaints except for some chronic left pain and itching which apparently has had MRI and further workup in the past. She uses Benadryl cream at home for which seems to help some of the itching. With the meds apparently she has improved. Psychiatry is trying to contact the to see if he feels she is good enough to come home or what placement would be needed. Vital signs reviewed, she has some slight hypertension but much improved compared to initial presentation.
[2017-07-07] MEDS ORDERED: BUSPIRONE HCL 10 MG TABLET PO SCH (08:00)
[2017-07-07] MEDS ORDERED: DIVALPROEX SODIUM 250 MG TAB.SR.24H PO SCH (10:00)
[2017-07-07] MEDS ORDERED: DIPHENHYDRAMINE HCL 2% CREAM 30 GM TP PRN (11:44)
[2017-07-07 18:23] VITALS: BP 154/73
== END 2017-07-07 18:06 | disposition home or self-care (01) ==
LOC: ER 15:52
DX: F31.9 Bipolar disorder, unspecified (principal); R45.850 Homicidal ideations; R45.851 Suicidal ideations; F17.200 Nicotine dependence, unspecified, uncomplicated; E78.00 Pure hypercholesterolemia, unspecified; I10 Essential (primary) hypertension; E11.9 Type 2 diabetes mellitus without complications; J44.9 Chronic obstructive pulmonary disease, unspecified; Z88.0 Allergy status to penicillin; Z96.651 Presence of right artificial knee joint
CPT/HCPCS: 93005; 99284; 36415; 80307 ×4; 85025; 80053; 81001; 93010 ×2; A9270 ×5; 96361; J3490

== ENCOUNTER 2017-11-10 18:12 | Emergency (ER) | payer MEDICARE ==
--- NOTE | 2017-11-10 19:44 | RADIOLOGY REPORT (SQ) ---
EXAM DESCRIPTION: WRIST LEFT 3 VIEWS COMPLETED DATE/TIME: 11/10/2017 7:33 pm REASON FOR STUDY: pain COMPARISON: None. NUMBER OF VIEWS: Three views. TECHNIQUE: AP, lateral, and oblique radiographic images acquired of the left wrist. LIMITATIONS: None. FINDINGS: MINERALIZATION: Normal. BONES: No acute fracture or dislocation. No worrisome bone lesions. Normal alignment. SOFT TISSUES: Mild soft tissue swelling. No foreign body. OTHER: No other significant finding. IMPRESSION: No fracture. TECHNICAL DOCUMENTATION: JOB ID: [id number] [email or web address]- All Rights Reserved
[2017-11-10] MEDS ORDERED: KETOROLAC TROMETHAMINE INJ/PF 30 MG/1 ML SDV IV ONE (20:37)
--- NOTE | 2017-11-10 20:45 | ER Document Report ---
ED Hand/Wrist Injury - General Chief Complaint: Wrist Pain Stated Complaint: LEFT WRIST PAIN Time Seen by Provider: 11/10/17 19:40 Mode of Arrival: Ambulatory Information source: Patient TRAVEL OUTSIDE OF THE [place] IN LAST 30 DAYS: No - HPI Injury to: Wrist Onset: Other - 2 years Timing: Waxing and waning Notes: Patient arrives with complaints of left wrist pain. She states that she has had this pain for last 2 years. She been seen multiple times for this pain. She denies any change in the pain, she does states that she wants to have it evaluated again. She denies any recent injuries. No fevers. No redness. She denies any numbness, tingling, weakness. No chest pain or shortness of breath. No abdominal pain. No nausea vomiting diarrhea. She denies any other complaints at this time. The pain is worse with movement, nothing in particular seems to make it better. She is already taking 7.5mg Percocets for chronic knee pain, she states that she does not need any other pain medication. - Related Data Allergies/Adverse Reactions: Penicillins Allergy (Verified 03/31/17 18:08) Past Medical History - Social History Smoking Status: Former Smoker Chew tobacco use (# tins/day): No Frequency of alcohol use: None Drug Abuse: None Family History: Reviewed & Not Pertinent Patient has suicidal ideation: No Patient has homicidal ideation: No - Past Medical History Cardiac Medical History: Reports: Hx Hypercholesterolemia, Hx Hypertension Pulmonary Medical History: Reports: Hx COPD Endocrine Medical History: Reports: Hx Diabetes Mellitus Type 2 Renal/ Medical History: Denies: Hx Peritoneal Dialysis Musculoskeltal Medical History: Reports Hx Arthritis Past Surgical History: Reports: Hx Appendectomy, Hx Orthopedic Surgery - R. knee replacement, Hx Tubal Ligation - Immunizations Hx Diphtheria, Pertussis, Tetanus Vaccination: Yes Hx Pneumococcal Vaccination: 07/17/12 Review of Systems - Review of Systems -: Yes All other systems reviewed and negative Physical Exam - Notes Notes: GENERAL: alert, cooperative, nontoxic, no distress. HEAD: normocephalic, atraumatic EYES: conjunctiva pink without discharge, no external redness or swelling. EARS: no external swelling, no external redness NOSE: atraumatic, no external swelling MOUTH/THROAT: mucous membranes moist and pink NECK: soft, supple, full range of motion, no meningismus. CHEST: no distress, lungs clear and equal throughout. No wheezing, rales, rhonchi. CARDIAC: regular rate and rhythm, no murmur, normal capillary refill, normal pulses. BACK: full range of motion, no CVA tenderness. EXTREMITIES: full range of motion of all extremities. Patient has some slight soft tissue swelling to the ulnar styloid of the left wrist. The skin is not red or hot to the touch. This area slightly tender to palpation. She has full range of motion. Normal cap refill and sensation distally. NEURO: alert and oriented 3, no focal deficits, full range of motion of all extremities. PYSCH: appropriate mood, affect. Patient is cooperative. SKIN: pink, warm, dry, no rash. Course - Re-evaluation Re-evalutation: 11/10/17 20:39 Patient is nontoxic. Stable vitals. The patient has had left wrist pain for the last 2 years. She been seen for this multiple times. Is been no new injuries. She has some mild soft tissue swelling over the ulnar styloid but no signs of infection. Compartments are soft. Neurovascularly she is intact. X- rays show no acute bony abnormality. The patient will be discharged home on Voltaren to help facilitate decreasing inflammation. She is a diabetic, therefore I would prefer to not place her on steroids at this time. She already takes 7-1/2 mg Percocets for chronic pain. She was instructed to continue to take these pain medications as well. She will be referred to orthopedics for further evaluation and management of her chronic wrist pain. The patient is noted to have elevated blood pressure during today's emergency department visit. The patient was informed of this finding. The patient was instructed that this may be related to pre-hypertension and requires further evaluation with a primary care provider. The patient has no hypertensive symptoms at this time. The patient's emergency department workup and current diagnosis were explained to the patient and or family. Follow-up instructions were provided. Medications if prescribed were discussed. Instructions for when to return to the emergency department including specific worrisome symptoms were discussed with the patient and/or family. - Diagnostic Test Radiology reviewed: Image reviewed, Reports reviewed - Left wrist without acute findings. Discharge - Discharge Clinical Impression: Chronic pain of left wrist Condition: Stable Disposition: HOME, SELF-CARE Instructions: Chronic Pain Control ([facility]) Additional Instructions: Take medications as prescribed. Follow-up with orthopedics at the next available appointment. Follow-up sooner for increasing pain, fever, redness, numbness, tingling, weakness, any further concerns. Your blood pressure was elevated during today's visit. Have this rechecked with your doctor. Prescriptions: Diclofenac Sodium [Voltaren 50 Mg Tablet.Dr] 50 mg PO BID #20 tablet.dr Forms: Elevated Blood Pressure, Smoking Cessation Education Referrals: RAJESH CISNEROS MD [Primary Care Provider] - Follow up as needed
== END 2017-11-10 22:09 | disposition home or self-care (01) ==
LOC: ER 18:12
DX: G89.29 Other chronic pain (principal); M25.532 Pain in left wrist; Z88.0 Allergy status to penicillin; Z87.891 Personal history of nicotine dependence; Z96.651 Presence of right artificial knee joint; E78.00 Pure hypercholesterolemia, unspecified; I10 Essential (primary) hypertension; J44.9 Chronic obstructive pulmonary disease, unspecified; E11.9 Type 2 diabetes mellitus without complications
CPT/HCPCS: 99283; 96374; 73110; J1885

== ENCOUNTER 2017-11-29 16:37 | Emergency (ER) | payer MEDICARE ==
--- NOTE | 2017-11-29 17:39 | ER Document Report ---
ED General - General Chief Complaint: General Weakness Stated Complaint: WRIST PAIN Time Seen by Provider: 11/29/17 16:55 Mode of Arrival: Medic Information source: Patient Notes: 72-year-old female presents with chronic left wrist pain of 2.5 years. Pt denies any new complaints, notes she is being treated by Dr Lyons for it and has appt on . Pt continously states she is not here for pain medication yet asks for pain medication TRAVEL OUTSIDE OF THE [place] IN LAST 30 DAYS: No - HPI Onset: Other Onset/Duration: Persistent Quality of pain: Sharp Severity: Mild Pain Level: 1 Associated symptoms: Body/muscle aches Exacerbated by: Movement Relieved by: Denies Similar symptoms previously: Yes Recently seen / treated by doctor: Yes - Related Data Allergies/Adverse Reactions: Penicillins Allergy (Verified 03/31/17 18:08) Past Medical History - Social History Smoking Status: Current Every Day Smoker Cigarette use (# per day): Yes Chew tobacco use (# tins/day): No Smoking Education Provided: No Family History: Reviewed & Not Pertinent Patient has suicidal ideation: No Patient has homicidal ideation: No - Past Medical History Cardiac Medical History: Reports: Hx Hypercholesterolemia, Hx Hypertension Pulmonary Medical History: Reports: Hx COPD Endocrine Medical History: Reports: Hx Diabetes Mellitus Type 2 Renal/ Medical History: Denies: Hx Peritoneal Dialysis Musculoskeltal Medical History: Reports Hx Arthritis Past Surgical History: Reports: Hx Appendectomy, Hx Orthopedic Surgery - R. knee replacement, Hx Tubal Ligation - Immunizations Hx Diphtheria, Pertussis, Tetanus Vaccination: Yes Hx Pneumococcal Vaccination: 07/17/12 Review of Systems - Review of Systems Notes: REVIEW OF SYSTEMS: CONSTITUTIONAL : Denies fever, chills, or sweats. Denies recent illness. EENT: Denies eye, ear, throat, or mouth pain or symptoms. Denies nasal or sinus congestion or discharge. Denies throat, tongue, or mouth swelling or difficulty swallowing. CARDIOVASCULAR: Denies chest pain. Denies palpitations or racing or irregular heart beat. Denies ankle edema. RESPIRATORY: Denies cough, cold, or chest congestion. Denies shortness of breath, difficulty breathing, or wheezing. GASTROINTESTINAL: Denies abdominal pain or distention. Denies nausea, vomiting , or diarrhea. Denies blood in vomitus, stools, or per rectum. Denies black, tarry stools. Denies constipation. GENITOURINARY: Denies difficulty urinating, painful urination, burning, frequency, blood in urine, or discharge. FEMALE GENITOURINARY: Denies vaginal bleeding, heavy or abnormal periods, irregular periods. Denies vaginal discharge or odor. MUSCULOSKELETAL: Denies back or neck pain or stiffness. Denies joint pain or swelling. SKIN: Denies rash, lesions or sores. HEMATOLOGIC : Denies easy bruising or bleeding. LYMPHATIC: Denies swollen, enlarged glands. NEUROLOGICAL: Denies confusion or altered mental status. Denies passing out or loss of consciousness. Denies dizziness or lightheadedness. Denies headache. Denies weakness or paralysis or loss of use of either side. Denies problems with gait or speech. Denies sensory loss, numbness, or tingling. Denies seizures. PSYCHIATRIC: Denies anxiety or stress. Denies depression, suicidal ideation, or homicidal ideation. ALL OTHER SYSTEMS REVIEWED AND NEGATIVE. PHYSICAL EXAMINATION: GENERAL: Well-appearing, well-nourished and in no acute distress. HEAD: Atraumatic, normocephalic. EYES: Pupils equal round and reactive to light, extraocular movements intact, conjunctiva are normal. ENT: Extremely poor dentition NECK: Normal range of motion, supple without lymphadenopathy LUNGS: Breath sounds clear to auscultation bilaterally and equal. No wheezes rales or rhonchi. HEART: Regular rate and rhythm without murmurs ABDOMEN: Soft, nontender, nondistended abdomen. No guarding, no rebound. No masses appreciated. Female : deferred Musculoskeletal: Normal range of motion, no pitting or edema. No cyanosis. NEUROLOGICAL: Cranial nerves grossly intact. Normal speech, normal gait. Normal sensory, motor exams PSYCH: Normal mood, normal affect. SKIN: Hypopigmentation and scarring noted over the left wrist medial aspect of dorsal Dictation was performed using [employer] voice recognition software Physical Exam - Vital signs Vitals: Pulse BP Pulse Ox 85 162/77 H 94 11/29/17 16:51 11/29/17 16:51 11/29/17 16:51 Course - Re-evaluation Re-evalutation: 11/29/17 17:[address] Lyons, he notes symptoms have been ongoing for 2-1/2 years but they have seen Dr. rosa as well, he is unsure of what is going on request that they follow-up in the office tomorrow 11/29/17 22:46 Patient was given a Lidoderm patch and covered the wrist, she demands narcotics and states she will not leave unless she gets pain meds. I have very high suspicion for opioid abuse with this patient Patient has no acute issue she is medically cleared After performing a Medical Screening Examination, I estimate there is LOW risk for INTRACRANIAL HEMORRHAGE, UNSTABLE SPINE FRACTURE, CENTRAL CORD SYNDROME, CAUDA EQUINA, THORACIC AORTIC DISSECTION, PNEUMOTHORAX, PERFORATED BOWEL, RUPTURED ABDOMINAL AORTIC ANEURYSM, ACUTE TENDON RUPTURE, COMPARTMENT SYNDROME, or OPEN FRACTURE, thus I consider the discharge disposition reasonable. Also, there is no evidence or peritonitis, sepsis, or toxicity. I have reevaluated this patient multiple times and no significant life threatening changes are noted. The patient and I have discussed the diagnosis and risks, and we agree with discharging home to follow-up with their primary doctor with the understanding that symptoms and presentations can change. We also discussed returning to the Emergency Department immediately if new or worsening symptoms occur. We have discussed the symptoms which are most concerning (e.g., bloody stool, fever, changing or worsening pain, vomiting) that necessitate immediate return. - Vital Signs Vital signs: Temp Pulse Resp BP Pulse Ox 97.9 F 79 18 162/68 H 95 11/29/17 18:53 11/29/17 18:53 11/29/17 18:53 11/29/17 18:53 11/29/17 18:53 - Diagnostic Test Radiology reviewed: Image reviewed, Reports reviewed - No acute abnormality Discharge - Discharge Clinical Impression: Wrist pain, chronic Qualifiers: Laterality: left Qualified Code(s): M25.532 - Pain in left wrist; G89.29 - Other chronic pain; G89.29 - Other chronic pain Hypertension Qualifiers: Hypertension type: essential hypertension Qualified Code(s): I10 - Essential ( primary) hypertension Condition: Stable Disposition: HOME, SELF-CARE Instructions: High Blood Pressure ([facility]) Referrals: RAJESH CISNEROS MD [Primary Care Provider] - Follow up as needed EMEKA LYONS MD [ACTIVE STAFF] - Follow up tomorrow
--- NOTE | 2017-11-29 18:12 | RADIOLOGY REPORT (SQ) ---
EXAM DESCRIPTION: WRIST LEFT 3 VIEWS COMPLETED DATE/TIME: 11/29/2017 6:01 pm REASON FOR STUDY: wrist pain COMPARISON: None. NUMBER OF VIEWS: Three views. TECHNIQUE: AP, lateral, and oblique radiographic images acquired of the left wrist. LIMITATIONS: None. FINDINGS: MINERALIZATION: Osteopenia. BONES: No acute fracture or dislocation. No worrisome bone lesions. Normal alignment. No significant osteophytes. JOINTS: No erosions. No raquel-articular osteopenia. No chondrocalcinosis. SOFT TISSUES: No swelling. No calcifications. OTHER: No other significant finding. IMPRESSION: NEGATIVE STUDY OF THE LEFT WRIST. NO EXPLANATION FOR PAIN. TECHNICAL DOCUMENTATION: JOB ID: [id number] [employer]- All Rights Reserved
[2017-11-29] MEDS ORDERED: LIDOCAINE 5% (700 MG) TRANSDERMAL ADH..PATCH TP ONE (18:41)
[2017-11-29 19:06] VITALS: BP 162/68
[2017-11-29] MEDS ORDERED: FENTANYL CITRATE INJ/PF 100 MCG/2 ML AMPUL IM ONE (19:22)
== END 2017-11-29 19:40 | disposition home or self-care (01) ==
LOC: ER 16:37
DX: G89.29 Other chronic pain (principal); M25.532 Pain in left wrist; L81.9 Disorder of pigmentation, unspecified; L90.5 Scar conditions and fibrosis of skin; E11.9 Type 2 diabetes mellitus without complications; J44.9 Chronic obstructive pulmonary disease, unspecified; I10 Essential (primary) hypertension; Z88.0 Allergy status to penicillin; F17.210 Nicotine dependence, cigarettes, uncomplicated
CPT/HCPCS: 99283; 73110; J3010

== ENCOUNTER 2018-01-27 07:45 | Emergency (ER) | payer MEDICARE ==
[2018-01-27] MEDS ORDERED: NORMAL SALINE 1000 ML 1,000 ML IV ONE (08:26)
[2018-01-27] MEDS ORDERED: ONDANSETRON HCL INJ/PF 4 MG/2 ML SDV IV ONE ×2 (08:26→14:29)
[2018-01-27] MEDS ORDERED: IPRATROPIUM/ALBUTEROL 0.5-2.5 MG/3 ML AMPUL NEB ONE (08:26)
--- NOTE | 2018-01-27 08:31 | ER Document Report ---
ED General - General Chief Complaint: Nausea/Vomiting/Diarrhea Stated Complaint: NAUSEA,WEAKNESS,LEFT ARM PAIN Time Seen by Provider: 01/27/18 08:07 Mode of Arrival: Ambulatory Information source: Patient, Relative TRAVEL OUTSIDE OF THE [place] IN LAST 30 DAYS: No - HPI Patient complains to provider of: weakness, n/v Notes: Patient is here with her at the bedside. The patient has been feeling ill for the past several days. Her states that she has been ill for over a year with complaints that she has been losing weight and not feeling well. The patient states that over the last several days she has felt worse. She has had nausea vomiting for the last several days her last episode of vomiting was around 2 AM. No diarrhea. No abdominal pain. She denies any chest pain or shortness of breath. She does complain of pain in her left arm. She complains of feeling generally weak. No headache, blurred vision, unilateral numbness, tingling, weakness. No rash. She denies any fevers. No dysuria or hematuria. No known sick contacts. No other complaints at this time. She was supposed to have a procedure done for her chronic wrist pain, but apparently she had some abnormal blood work. In reviewing her labs, it was noted that her potassium was 6.6. She was supposed to follow-up with her primary care doctor, but has not had a chance to do that. - Related Data Allergies/Adverse Reactions: Penicillins Allergy (Verified 01/24/18 09:46) Past Medical History - Social History Smoking Status: Current Every Day Smoker Family History: Reviewed & Not Pertinent - Past Medical History Cardiac Medical History: Reports: Hx Hypercholesterolemia Denies: Hx Coronary Artery Disease, Hx Heart Attack, Hx Hypertension Pulmonary Medical History: Reports: Hx Asthma Denies: Hx Bronchitis, Hx COPD, Hx Pneumonia Neurological Medical History: Denies: Hx Cerebrovascular Accident, Hx Seizures Endocrine Medical History: Reports: Hx Diabetes Mellitus Type 2 Renal/ Medical History: Denies: Hx Peritoneal Dialysis Musculoskeltal Medical History: Reports Hx Arthritis Past Surgical History: Reports: Hx Appendectomy, Hx Orthopedic Surgery - R. knee replacement, Hx Tubal Ligation - Immunizations Hx Diphtheria, Pertussis, Tetanus Vaccination: Yes Hx Pneumococcal Vaccination: 07/17/12 Review of Systems - Review of Systems -: Yes All other systems reviewed and negative Physical Exam - Vital signs Vitals: Temp Pulse Resp BP Pulse Ox 97.9 F 120 H 20 117/58 L 96 01/27/18 07:53 01/27/18 07:53 01/27/18 07:53 01/27/18 07:53 01/27/18 07:53 - Notes Notes: GENERAL: alert, cooperative, nontoxic, no distress. HEAD: normocephalic, atraumatic EYES: conjunctiva pink without discharge, no external redness or swelling. EARS: no external swelling, no external redness NOSE: atraumatic, no external swelling MOUTH/THROAT: mucous membranes moist and pink, posterior pharynx without erythema, swelling, exudate. No trismus or drooling. NECK: soft, supple, full range of motion, no meningismus. CHEST: no distress, lungs clear and equal throughout. No wheezing, rales, rhonchi. CARDIAC: regular rate and rhythm, no murmur, normal capillary refill, normal pulses. No peripheral edema noted. ABDOMEN: Soft, nontender. No rebound tenderness or guarding. No mass. BACK: full range of motion, no CVA tenderness. EXTREMITIES: full range of motion of all extremities. No redness, no swelling. NEURO: alert and oriented x 3, no focal deficits, full range of motion of all extremities. PYSCH: appropriate mood, affect. Patient is cooperative. SKIN: pink, warm, dry, no rash. Course - Re-evaluation Re-evalutation: 01/27/18 09:42 Patient is nontoxic appearing with stable vitals. She was initially tachycardic on arrival 120 but her heart rate has come down to the 90s. Patient has no abdominal tenderness on her exam. She complains of generalized weakness, nausea vomiting, left arm pain. She has had no chest pain or shortness of breath. EKG shows significant changes with widespread T-wave inversion. This is changed from a normal EKG she had 3 days ago. Lab work is unremarkable aside from an elevated troponin of 0.052. BNP is also elevated over 5000. Chest x-ray shows no acute abnormalities. Patient is resting comfortably at this time. She has been given aspirin as well as heparin. EKG findings are concerning for unstable angina. I have discussed the case with the hospitalist here who states that the patient needs to be transferred to another facility. I discussed this with the family. I discussed this with the [facility] transfer center and I am awaiting a return call for acceptance. This point the patient is chest pain-free. She remained stable at this time. She will be transferred to another facility for further evaluation and management. 01/27/18 16:40 Patient is resting comfortably at this time. She remained stable at this time. Transport is now here to transfer her. She remained stable enough for safe transport to [facility]. - Vital Signs Vital signs: Temp Pulse Resp BP Pulse Ox 97.9 F 120 H 22 H 121/53 L 94 01/27/18 07:53 01/27/18 07:53 01/27/18 14:01 01/27/18 14:00 01/27/18 15:21 - Laboratory Result Diagrams: 01/27/18 08:30 01/27/18 08:30 Laboratory results interpreted by me: 01/27/18 01/27/18 01/27/18 08:30 08:30 08:30 RDW 14.9 H Glucose 137 H Creatine Kinase 23 L NT-Pro-B Natriuret Pep 5570 H - Diagnostic Test Radiology reviewed: Image reviewed, Reports reviewed - Chest x-ray without acute abnormality. - EKG Interpretation by Me EKG shows normal: [place], Intervals, QRS Complexes Rate: Tachycardia When compared to previous EKG there are: Changes noted Additional EKG results interpreted by me: 01/27/18 08:49 T-wave inversion widespread. This is a significant change when compared to EKG from 3 days ago which had no T-wave inversions and was normal. Discharge - Discharge Clinical Impression: Unstable angina, Abnormal EKG, Troponin level elevated Condition: Serious Disposition: [facility] Referrals: RAJESH CISNEROS MD [Primary Care Provider] - Follow up as needed
[2018-01-27 08:43] LABS: ABSOLUTE BASOPHILS # (AUTO) 0.1 10^3/uL (0.0-0.2); ABSOLUTE EOSINOPHILS # (AUTO) 0.1 10^3/uL (0.0-0.6); ABSOLUTE LYMPHOCYTES (AUTO) 3.3 10^3/uL (0.5-4.7); ABSOLUTE MONOCYTES (AUTO) 0.7 10^3/uL (0.1-1.4); ABSOLUTE NEUT (AUTO) 4.7 10^3/uL (1.7-8.2); BASOPHILS % (AUTO) 1.2 % (0-2); EOSINOPHILS % (AUTO) 0.9 % (0-6); HEMATOCRIT 44.9 % (36.0-47.0); LYMPHOCYTES % (AUTO) 36.7 % (13-45); MEAN CORPUSCULAR HEMOGLOBIN 29.9 pg (27.0-33.4); MEAN CORPUSCULAR HGB CONC 33.4 g/dL (32.0-36.0); MEAN CORPUSCULAR VOLUME 90 fl (80-97); MONOCYTES % (AUTO) 8.1 % (3-13); PLATELET COUNT 309 10^3/uL (150-450); RED BLOOD COUNT 5.01 10^6/uL (3.72-5.28); RED CELL DISTRIBUTION WIDTH 14.9 % (11.5-14.0); SEGMENTED NEUTROPHILS % (AUTO) 53.1 % (42-78); TOTAL CELLS COUNTED % (AUTO) 100 %; WHITE BLOOD COUNT 8.9 10^3/uL (4.0-10.5)
[2018-01-27] MEDS ORDERED: ASPIRIN 81 MG TABLET, CHEWABLE PO ONE (08:48)
[2018-01-27 09:03] LABS: ALANINE AMINOTRANSFERASE 17 U/L (9-52); ALBUMIN 3.7 g/dL (3.5-5.0); ALKALINE PHOSPHATASE 62 U/L (38-126); ANION GAP 9 (5-19); ASPARTATE AMINO TRANSFERASE 15 U/L (14-36); BILIRUBIN,DIRECT 0.1 mg/dL (0.0-0.4); BILIRUBIN,TOTAL 0.5 mg/dL (0.2-1.3); BLOOD UREA NITROGEN 13 mg/dL (7-20); CALCIUM 9.6 mg/dL (8.4-10.2); CARBON DIOXIDE 22 mmol/L (22-30); CHLORIDE 107 mmol/L (98-107); CREATINE KINASE 23 U/L (30-135); GLUCOSE 137 mg/dL (75-110); POTASSIUM 4.3 mmol/L (3.6-5.0); TOTAL PROTEIN 6.3 g/dL (6.3-8.2)
--- NOTE | 2018-01-27 09:07 | RADIOLOGY REPORT (SQ) ---
EXAM DESCRIPTION: CHEST SINGLE VIEW COMPLETED DATE/TIME: 01/27/2018 8:50 am REASON FOR STUDY: weakness COMPARISON: Chest films 01/24/2018, 04/15/2017 EXAM PARAMETERS: NUMBER OF VIEWS: One view. TECHNIQUE: Single frontal radiographic view of the chest acquired. RADIATION DOSE: NA LIMITATIONS: None FINDINGS: LUNGS AND PLEURA: Lungs are hyperinflated and hyperlucent from obstructive disease. No gr oss acute infiltrates. No pleural effusion. No pneumothorax. MEDIASTINUM AND HILAR STRUCTURES: No masses. Contour normal. HEART AND VASCULAR STRUCTURES: Heart normal in size. Normal vasculature. BONES: No acute findings. HARDWARE: None in the chest. OTHER: No other significant finding. IMPRESSION: Obstructive lung disease. No gross acute infiltrates TECHNICAL DOCUMENTATION: JOB ID: [id number] [employer]- All Rights Reserved Reading location - IP/workstation name: [email or web address]
[2018-01-27 09:18] LABS: TROPONIN I 0.052 ng/mL
[2018-01-27] MEDS ORDERED: HEPARIN SODIUM,PORCINE/D5W 25,000 UNIT/250 ML RTUINJ IV PRN (09:28)
[2018-01-27] MEDS ORDERED: HEPARIN SOD (PORCINE) 1,000 UNIT/ML 10 ML VIAL IV ONE (09:28)
[2018-01-27 10:02] LABS: INTERNATIONAL RATION (INR) 0.88; PARTIAL THROMBOPLASTIN TIME 28.4 SEC (23.5-35.8); PROTHROMBIN TIME 12.4 SEC (11.4-15.4)
[2018-01-27] MEDS ORDERED: OXYCODONE-ACETAMINOPHEN 5-325 MG TABLET PO ONE (13:31)
[2018-01-27] MEDS ORDERED: ALPRAZOLAM 0.25 MG TABLET PO ONE (13:31)
--- NOTE | 2018-01-27 13:43 | EKG REPORT ---
SEVERITY:- ABNORMAL ECG - SINUS TACHYCARDIA ABNORMAL T, PROBABLE ISCHEMIA, WIDESPREAD, CLINICAL CORRELATION NEEDED. : Confirmed by: Thiago Gomez MD 27-Jan-2018 13:42:38
[2018-01-27] MEDS ORDERED: MORPHINE SULFATE 10 MG/ML INJ IV ONE (14:39)
[2018-01-27 16:56] VITALS: BP 112/53
[2018-01-27 17:11] LABS: INTERNATIONAL RATION (INR) 0.96; PARTIAL THROMBOPLASTIN TIME 41.5 SEC (23.5-35.8); PROTHROMBIN TIME 13.3 SEC (11.4-15.4)
== END 2018-01-27 17:34 | disposition short-term general hospital (02) ==
LOC: ER 07:45
DX: I20.0 Unstable angina (principal); R94.31 Abnormal electrocardiogram [ECG] [EKG]; R79.89 Other specified abnormal findings of blood chemistry; R11.2 Nausea with vomiting, unspecified; R19.7 Diarrhea, unspecified; R53.1 Weakness; M79.602 Pain in left arm; F17.200 Nicotine dependence, unspecified, uncomplicated; J45.909 Unspecified asthma, uncomplicated; E11.9 Type 2 diabetes mellitus without complications
CPT/HCPCS: 93005; 96376; 94640; 99285; 96361; 96374; 96375; 36415; 82550; 85025; 85610; 85730; 80053; 84484; 83880; 71045; 93010; A9270 ×4; J1644 ×2; J2270; J2405; J7030; J7620

== ENCOUNTER 2018-05-08 13:06 | Emergency (ER) | payer MEDICARE ==
[2018-05-08] MEDS ORDERED: NORMAL SALINE 1000 ML 1,000 ML IV ONE (13:58)
[2018-05-08] MEDS ORDERED: ACETAMINOPHEN 325 MG TABLET PO ONE (14:00)
--- NOTE | 2018-05-08 14:00 | ER Document Report ---
ED Medical Screen (RME) - General Chief Complaint: Pain All Over Stated Complaint: BODY ACHES Time Seen by Provider: 05/08/18 13:55 TRAVEL OUTSIDE OF THE [place] IN LAST 30 DAYS: No - HPI Notes: 05/08/18 14:00 Malaise for 2 weeks - Related Data Allergies/Adverse Reactions: Penicillins Allergy (Verified 05/08/18 13:09) Past Medical History - Social History Chew tobacco use (# tins/day): No Frequency of alcohol use: None Drug Abuse: None - Past Medical History Cardiac Medical History: Reports: Hx Hypercholesterolemia Denies: Hx Coronary Artery Disease, Hx Heart Attack, Hx Hypertension Pulmonary Medical History: Reports: Hx Asthma Denies: Hx Bronchitis, Hx COPD, Hx Pneumonia Neurological Medical History: Denies: Hx Cerebrovascular Accident, Hx Seizures Endocrine Medical History: Reports: Hx Diabetes Mellitus Type 2 Renal/ Medical History: Denies: Hx Peritoneal Dialysis Musculoskeltal Medical History: Reports Hx Arthritis Past Surgical History: Reports: Hx Appendectomy, Hx Orthopedic Surgery - R. knee replacement, Hx Tubal Ligation - Immunizations Hx Diphtheria, Pertussis, Tetanus Vaccination: Yes History of Influenza Vaccine for 07/2017 - 12/2017 Season: Yes Influenza Administration Date for 07/2017 - 12/2017 Season: 07/17/17 Review of Systems - Review of Systems Constitutional: Malaise Physical Exam - Vital signs Vitals: Temp Pulse Resp BP Pulse Ox 98.5 F 114 H 16 133/72 H 92 05/08/18 13:11 05/08/18 13:11 05/08/18 13:11 05/08/18 13:11 05/08/18 13:11 - Respiratory Respiratory status: No respiratory distress Chest status: Nontender Breath sounds: Normal Chest palpation: Normal Course - Vital Signs Vital signs: Temp Pulse Resp BP Pulse Ox 98.5 F 114 H 16 133/72 H 92 05/08/18 13:11 05/08/18 13:11 05/08/18 13:11 05/08/18 13:11 05/08/18 13:11 Doctor's Discharge - Discharge Referrals: RAJESH CISNEROS MD [Primary Care Provider] - Follow up as needed
--- NOTE | 2018-05-08 14:49 | RADIOLOGY REPORT (SQ) ---
EXAM DESCRIPTION: CHEST 2 VIEWS COMPLETED DATE/TIME: 05/08/2018 2:37 pm REASON FOR STUDY: sob COMPARISON: 04/15/2017 NUMBER OF VIEWS: Two view. TECHNIQUE: Frontal and lateral radiographic views of the chest acquired. LIMITATIONS: None. FINDINGS: LUNGS AND PLEURA: No opacities, masses or pneumothorax. No pleural effusion. Attenuated bl ood vessels and flattened edita-diaphragms. MEDIASTINUM AND HILAR STRUCTURES: No masses. No contour abnormalities. HEART AND VASCULAR STRUCTURES: Heart normal in size and contour. No evidence for failure. BONES: No acute findings. HARDWARE: None in the chest. OTHER: No other significant finding. IMPRESSION: COPD. NO ACUTE RADIOGRAPHIC FINDING IN THE CHEST. TECHNICAL DOCUMENTATION: JOB ID: [id number] [employer]- All Rights Reserved Reading location - IP/workstation name: [email or web address]
[2018-05-08 15:22] LABS: ABSOLUTE BASOPHILS # (AUTO) 0.1 10^3/uL (0.0-0.2); ABSOLUTE EOSINOPHILS # (AUTO) 0.1 10^3/uL (0.0-0.6); ABSOLUTE LYMPHOCYTES (AUTO) 3.4 10^3/uL (0.5-4.7); ABSOLUTE MONOCYTES (AUTO) 0.7 10^3/uL (0.1-1.4); ABSOLUTE NEUT (AUTO) 5.9 10^3/uL (1.7-8.2); BASOPHILS % (AUTO) 0.8 % (0-2); EOSINOPHILS % (AUTO) 1.3 % (0-6); HEMATOCRIT 46.1 % (36.0-47.0); HEMOGLOBIN 15.4 g/dL (12.0-15.5); LYMPHOCYTES % (AUTO) 33.6 % (13-45); MEAN CORPUSCULAR HEMOGLOBIN 30.8 pg (27.0-33.4); MEAN CORPUSCULAR HGB CONC 33.4 g/dL (32.0-36.0); MEAN CORPUSCULAR VOLUME 92 fl (80-97); MONOCYTES % (AUTO) 7.2 % (3-13); PLATELET COUNT 320 10^3/uL (150-450); RED CELL DISTRIBUTION WIDTH 13.5 % (11.5-14.0); SEGMENTED NEUTROPHILS % (AUTO) 57.1 % (42-78); TOTAL CELLS COUNTED % (AUTO) 100 %; WHITE BLOOD COUNT 10.2 10^3/uL (4.0-10.5)
[2018-05-08 15:41] LABS: ALANINE AMINOTRANSFERASE 19 U/L (9-52); ALBUMIN 4.2 g/dL (3.5-5.0); ALKALINE PHOSPHATASE 79 U/L (38-126); ANION GAP 14 (5-19); ASPARTATE AMINO TRANSFERASE 20 U/L (14-36); BILIRUBIN,DIRECT 0.3 mg/dL (0.0-0.4); BILIRUBIN,TOTAL 0.6 mg/dL (0.2-1.3); BLOOD UREA NITROGEN 15 mg/dL (7-20); CALCIUM 9.9 mg/dL (8.4-10.2); CARBON DIOXIDE 22 mmol/L (22-30); CHLORIDE 103 mmol/L (98-107); GLUCOSE 110 mg/dL (75-110); POTASSIUM 4.5 mmol/L (3.6-5.0); SODIUM 139.3 mmol/L (137-145)
--- NOTE | 2018-05-08 16:08 | ER Document Report ---
ED General - General Chief Complaint: Pain All Over Stated Complaint: BODY ACHES Time Seen by Provider: 05/08/18 13:55 Mode of Arrival: Medic Information source: Patient, Relative - Notes: 73 yo thin COPD, smoker female in by EMS because she was having intermittent retrosternal chest pain since 10 am , got worse at 1300 and then called EMS. ( January EKG changes- [facility]- Cath found to be negative, no intervention and then sent home- 2 visits to [place] since, no dx CAD or ACS). Left arm numb- "whole dern thing" at 10 am also- had some yesterday, and chronically. Normal stools. No chest pain now, gradually eased off while in the room. No headache, dizziness, nausea, vomiting, or diarrhea. No abd. pain. No dysuria. Lives with spouse who is worried about her weight loss this past year and states that the home health nurse that was there 3 days ago so she needs to go to rehab to help her gain weight and be more stable. PCP: Dr. Nuñez, TRAVEL OUTSIDE OF THE [place] IN LAST 30 DAYS: No - HPI Onset: This morning - 10 am - Related Data Allergies/Adverse Reactions: Penicillins Allergy (Verified 05/08/18 13:09) Past Medical History - General Information source: Patient - Social History Smoking Status: Current Every Day Smoker Chew tobacco use (# tins/day): No Frequency of alcohol use: None Drug Abuse: None Lives with: Spouse/Significant other Family History: Reviewed & Not Pertinent Patient has suicidal ideation: No Patient has homicidal ideation: No - Past Medical History Cardiac Medical History: Reports: Hx Heart Attack - February 2018 ?- sent to [facility], then sent home., Hx Hypercholesterolemia Pulmonary Medical History: Reports: Hx Asthma, Hx COPD Neurological Medical History: Denies: Hx Cerebrovascular Accident, Hx Seizures Endocrine Medical History: Reports: Hx Diabetes Mellitus Type 2 Renal/ Medical History: Denies: Hx Peritoneal Dialysis Musculoskeletal Medical History: Reports Hx Arthritis Past Surgical History: Reports: Hx Appendectomy, Hx Orthopedic Surgery - R. knee replacement, Hx Tubal Ligation - Immunizations Hx Diphtheria, Pertussis, Tetanus Vaccination: Yes Hx Pneumococcal Vaccination: 07/17/12 Review of Systems - Review of Systems Constitutional: See HPI EENT: No symptoms reported Cardiovascular: See HPI Respiratory: No symptoms reported Gastrointestinal: No symptoms reported Genitourinary: No symptoms reported Female Genitourinary: No symptoms reported Musculoskeletal: No symptoms reported Skin: No symptoms reported Hematologic/Lymphatic: No symptoms reported Neurological/Psychological: See HPI Physical Exam - Vital signs Vitals: Temp Pulse Resp BP Pulse Ox 98.5 F 114 H 16 133/72 H 92 05/08/18 13:11 05/08/18 13:11 05/08/18 13:11 05/08/18 13:11 05/08/18 13:11 Interpretation: Normal, Other - Pulse ox 92% - General General appearance: Appears well, Alert Notes: Thin - HEENT Head: Normocephalic, Atraumatic Eyes: Normal Conjunctiva: Normal Pupils: PERRL Tympanic membrane: Normal Pharynx: Normal Neck: Supple. No: Lymphadenopathy, Thyromegally - Respiratory Respiratory status: No respiratory distress Chest status: Nontender Breath sounds: Wheezing - Inspiratory wheeze mild bilateral. No: Rales Chest palpation: Normal - Cardiovascular Rhythm: Regular Heart sounds: Normal auscultation Murmur: No - Abdominal Inspection: Normal Distension: No distension Bowel sounds: Normal Tenderness: Nontender Organomegaly: No organomegaly - Back Back: Normal, Nontender. No: CVA tenderness - Extremities General upper extremity: Normal inspection, Nontender, Normal color, Normal ROM , Normal temperature General lower extremity: Normal inspection, Nontender, Normal color, Normal ROM , Normal temperature, Normal weight bearing. No: Comfort's sign - Neurological Neuro grossly intact: Yes Cognition: Normal Orientation: AAOx4 Drew Coma Scale Eye Opening: Spontaneous Drew Coma Scale Verbal: Oriented Drew Coma Scale Motor: Obeys Commands Drew Coma Scale Total: 15 Speech: Normal Motor strength normal: LUE, RUE, LLE, RLE Sensory: Normal - Psychological Associated symptoms: Normal affect, Normal mood - Skin Skin Temperature: Warm Skin Moisture: Dry Skin Color: Normal Skin irregularity: other - Superficial excoriations lower legs. negative: Rash Course - Re-evaluation Re-evalutation: 05/08/18 17:45 Lab work and urinalysis are negative. EKG is normal sinus rhythm with no acute changes, QTc is 477 and QT interval is 396. X I gave her a breathing treatment because she had some inspiratory wheezing. Her troponin was negative. Chest x-ray showed COPD and no acute findings. 05/08/18 18:[address] Sanderson and the second troponin is negative she can be discharged home with follow up with dr. nuñez. She already takes asa 81 mg per day, does not have a inhaled bronchodilator. Second troponin is being drawn now. I added a TSH because she has not had that drawn at [place] since 201205/08/18 18:34 05/08/18 19:29 Second troponin is negative so I will be sending her home to see Dr. Nuñez tomorrow. TSH is pending but I will check that later and let her know if it is abnormal. Patient and spouse understand instructions. 05/08/18 19:29 05/08/18 19:29 05/09/18 09:21 tsh wnl. - Vital Signs Vital signs: Temp Pulse Resp BP Pulse Ox 97.9 F 92 18 129/59 H 96 05/08/18 19:42 05/08/18 19:42 05/08/18 19:42 05/08/18 19:42 05/08/18 19:42 - Laboratory Result Diagrams: 05/08/18 15:05 05/08/18 15:05 Discharge - Discharge Clinical Impression: Chest pain, COPD, Chronic int left arm pain/numbness Condition: Good Disposition: HOME, SELF-CARE Instructions: Chronic Obstructive Lung Disease ([facility]), Chest Pain of Unclear Cause ([facility]), Inhaled Bronchodilators ([facility]), Numbness or Paresthesia ([facility]) Additional Instructions: Use the albuterol metered-dose inhaler 2 puffs every 3-4 hours for the coughing and wheezing Quit smoking See Dr. Nuñez for follow-up tomorrow Return to the emergency room for any worsening of the symptoms Continue the 81 mg aspirin daily Prescriptions: Albuterol Sulfate [Proair HFA Inhalation Aerosol 8.5 gm MDI] 2 puff IH Q3HP PRN #1 [email or web address] PRN Reason: Referrals: RAJESH NUÑEZ MD [Primary Care Provider] - Follow up tomorrow
[2018-05-08] MEDS ORDERED: ALBUTEROL SULFATE 0.083% NEB 2.5 MG/3 ML AMPUL NEB ONE (17:07)
[2018-05-08 17:11] LABS: APPEARANCE,URINE CLEAR; BILIRUBIN,URINE NEGATIVE (NEGATIVE); COLOR,URINE STRAW; GLUCOSE, URINE NEGATIVE (NEGATIVE); KETONES,URINE NEGATIVE (NEGATIVE); LEUKOCYTE ESTERASE,URINE NEGATIVE (NEGATIVE); NITRITE,URINE NEGATIVE (NEGATIVE); PROTEIN,URINE NEGATIVE (NEGATIVE); URINE SPECIFIC GRAVITY 1.006; UROBILINOGEN,URINE NEGATIVE mg/dL (<2.0)
--- NOTE | 2018-05-08 22:07 | EKG REPORT ---
SEVERITY:- NORMAL ECG - SINUS RHYTHM : Confirmed by: Johana East MD 08-May-2018 22:06:48
[2018-05-08 22:39] VITALS: BP 129/59
== END 2018-05-08 19:45 | disposition home or self-care (01) ==
LOC: ER 13:06
DX: R07.9 Chest pain, unspecified (principal); J44.9 Chronic obstructive pulmonary disease, unspecified; F17.200 Nicotine dependence, unspecified, uncomplicated; R20.0 Anesthesia of skin; M79.602 Pain in left arm; G89.29 Other chronic pain; E11.9 Type 2 diabetes mellitus without complications; S80.819A Abrasion, unspecified lower leg, initial encounter; X58.XXXA Exposure to other specified factors, initial encounter; R63.4 Abnormal weight loss; Z68.1 Body mass index [BMI] 19.9 or less, adult; Z88.0 Allergy status to penicillin
CPT/HCPCS: 93005; 94640; 99284; 96360; 36415; 87086; 83690; 84443; 85025; 80053; 81001; 84484; 71046; 93010; A9270 ×2; J7030

== ENCOUNTER 2019-01-09 14:36 | Day surgery (SDC) | payer MEDICARE ==
[2019-01-02 10:25] LABS: HEMATOCRIT 43.2 % (36.0-47.0); HEMOGLOBIN 14.6 g/dL (12.0-15.5); MEAN CORPUSCULAR HEMOGLOBIN 31.7 pg (27.0-33.4); MEAN CORPUSCULAR HGB CONC 33.8 g/dL (32.0-36.0); MEAN CORPUSCULAR VOLUME 94 fl (80-97); RED CELL DISTRIBUTION WIDTH 13.7 % (11.5-14.0)
--- NOTE | 2019-01-02 10:33 | RADIOLOGY REPORT (SQ) ---
EXAM DESCRIPTION: CHEST PA/LATERAL COMPLETED DATE/TIME: 01/02/2019 10:25 am REASON FOR STUDY: PRE-OP COMPARISON: 05/08/2018 EXAM PARAMETERS: NUMBER OF VIEWS: two views TECHNIQUE: Digital Frontal and Lateral radiographic views of the chest acquired. RADIATION DOSE: NA LIMITATIONS: none FINDINGS: LUNGS AND PLEURA: Findings of COPD and mildly prominent interstitial markings in the lung s. No acute pulmonary consolidation. No pneumothorax or pleural effusion. Small calcified granulom a medial left lung base. MEDIASTINUM AND HILAR STRUCTURES: No masses or contour abnormalities. HEART AND VASCULAR STRUCTURES: Heart normal size. No evidence for failure. BONES: No acute findings. HARDWARE: None in the chest. OTHER: No other significant finding. IMPRESSION: 1. No significant interval changes. Findings of COPD and mildly prominent interstitial markings in the lungs. No acute findings. TECHNICAL DOCUMENTATION: JOB ID: [id number] [email or web address]- All Rights Reserved Reading location - IP/workstation name: [email or web address]
[2019-01-02 10:36] LABS: APPEARANCE,URINE CLOUDY; BILIRUBIN,URINE NEGATIVE (NEGATIVE); COLOR,URINE YELLOW; GLUCOSE, URINE NEGATIVE (NEGATIVE); KETONES,URINE NEGATIVE (NEGATIVE); LEUKOCYTE ESTERASE,URINE MODERATE (NEGATIVE); NITRITE,URINE NEGATIVE (NEGATIVE); PROTEIN,URINE NEGATIVE (NEGATIVE); URINE SPECIFIC GRAVITY 1.014; UROBILINOGEN,URINE NEGATIVE mg/dL (<2.0)
[2019-01-02 10:43] LABS: PLATELET COUNT 306 10^3/uL (150-450)
[2019-01-02 14:38] LABS: ANION GAP 12 (5-19); BLOOD UREA NITROGEN 23 mg/dL (7-20); CALCIUM 9.9 mg/dL (8.4-10.2); CARBON DIOXIDE 20 mmol/L (22-30); CHLORIDE 104 mmol/L (98-107); GLUCOSE 234 mg/dL (75-110); POTASSIUM 4.7 mmol/L (3.6-5.0); SODIUM 136.4 mmol/L (137-145)
--- NOTE | 2019-01-02 17:12 | EKG REPORT ---
SEVERITY:- ABNORMAL ECG - SINUS RHYTHM NONSPECIFIC T ABNORMALITIES, LATERAL LEADS : Confirmed by: Willa Vides 02-Jan-2019 17:12:11
[~2019-01-09 14:36] MED LIST: BUPIVACAINE HCL 0.5 % INJ/PF 30 ML SDV ONE; CEFAZOLIN 2 GM/D5W RTU 2 GM/50 ML RTUPB IV PRN; CLINDAMYCIN 600 MG/D5W RTU 600 MG/50 ML RTUPB IV PRN; DEXAMETHASONE SOD PHOSPHATE INJ 4 MG/1 ML VIAL ONE; FENTANYL CITRATE INJ/PF 100 MCG/2 ML AMPUL ONE; LACTATED RINGERS 1000 ML IV PRN; LIDOCAINE 0.5% INJ-PF (5 MG/ML) 50 ML SDV SUBCUT PRN; MIDAZOLAM 2 MG/2 ML INJ ONE; ONDANSETRON HCL INJ/PF 4 MG/2 ML SDV ONE; PROPOFOL INJ 200 MG/20 ML VIAL IV ONE
[2019-01-09] MEDS ORDERED: ALBUTEROL SULFATE 0.083% NEB 2.5 MG/3 ML AMPUL NEB ONE (15:34)
[2019-01-09 15:36] LABS: POTASSIUM 4.6 mmol/L (3.6-5.0)
[2019-01-09] MEDS ORDERED: LIDOCAINE 0.5% INJ-PF (5 MG/ML) 50 ML SDV ONE (15:59)
[2019-01-09] MEDS ORDERED: SODIUM BICARBONATE 8.4% INJ 50 MEQ/50 ML DISP.SYRIN ONE (15:59)
[2019-01-09] MEDS ORDERED: OXYCODONE-ACETAMINOPHEN 5-325 MG TABLET PO PRN ×2 (16:03→17:35)
[2019-01-09] MEDS ORDERED: MORPHINE SULFATE 10 MG/ML INJ IV PRN ×3 (16:03→17:35)
[2019-01-09] MEDS ORDERED: ONDANSETRON HCL INJ/PF 4 MG/2 ML SDV IV PRN ×3 (16:03→17:35)
[2019-01-09] MEDS ORDERED: CEFAZOLIN 2 GM/D5W RTU 0 GM/0 ML RTUPB IV ONE (16:26)
[2019-01-09] MEDS ORDERED: CLINDAMYCIN 600 MG/D5W RTU 600 MG/50 ML RTUPB IV ONE (16:39)
[2019-01-09] MEDS ORDERED: FENTANYL CITRATE INJ/PF 100 MCG/2 ML AMPUL IV PRN ×3 (17:01)
[2019-01-09] MEDS ORDERED: DIPHENHYDRAMINE HCL 50 MG/ML VIAL IV PRN (17:01)
[2019-01-09] MEDS ORDERED: MEPERIDINE HCL/PF INJ 25 MG/1 ML DISP.SYRIN IV PRN (17:01)
[2019-01-09] MEDS ORDERED: PROMETHAZINE HCL INJ 25 MG/1 ML VIAL IV PRN ×2 (17:01)
--- NOTE | 2019-01-09 17:36 | Discharge Summary ---
Discharge Summary (SDC) - Discharge Final Diagnosis: Left Wrist TFCC Tear Date of Surgery: 01/09/19 Discharge Date: 01/09/19 Condition: Good Treatment or Instructions: Schedule Follow Up w/ Dr. Fidel Castillo @ [facility] to be seen in 10-14 days or as scheduled [place]: [place]: [place]: Ice and elevate Keep splint clean/dry/intact, do not remove. If your fingers become numb please unwrap the Natan wrap but leave the splint in place, if the sensation does not return within 30 minutes please return to the emergency department. May begin finger range of motion attempting to make full fist. Please use ibuprofen (Motrin or Advil) 600-800 mg every 8 hours as needed for pain or fever DO NOT TAKE w/ TORADOL may use once TORADOL complete. You may also use acetaminophen (Tylenol) 1000 mg every 4-6 hours as needed for pain or fever. Please be aware that many medications contain acetaminophen, do not exceed a total of 1000 mg of acetaminophen every 6 hours. If ibuprofen and acetaminophen are not sufficient for your pain you may take the Percocet/[place]. Please be aware that the Percocet/[place] does contain Tylenol. Stool softener of choice when on pain medication. USE OF [id number] IBUPROFEN: Ibuprofen (Advil, Nuprin, Medipren, Motrin IB) is a medication for fever and pain control. In addition, it has anti- inflammatory effects which may be beneficial, especially in the treatment of injuries. It's best to take ibuprofen with food. Persons with ulcer disease or allergy to aspirin should notify their physician of this before taking ibuprofen. Ibuprofen can be given every four to six hours, for a total of four doses daily. Age Pain or fever dose Antiinflammatory dose 6-8 yr 200 mg (1 tab) 200 mg (1 tab) 9-11 yr 200 mg (1 tab) 200-400 mg (1-2 tab) 11-14 yr 200-400 mg (1-2 tab) 400 mg (2 tab) 15-adult 400 mg (2 tab) 600 mg (3 tab) ORAL NARCOTIC MEDICATION: You have been given a prescription for pain control. This medication is a narcotic. It's best taken with food, as nausea can result if taken on an empty stomach. Don't operate machinery or drive within six hours of taking this medication. Do not combine this medicine with alcohol, or with any medication which can cause sedation (such as cold tablets or sleeping pills) unless you get permission from the physician. Narcotics tend to cause constipation. If possible, drink plenty of fluids and eat a diet high in fiber and fruits. Please be aware that prescription narcotics also have the potential for abuse. People become addicted to these medications because of the general sense of wellbeing that they induce. This feeling along with a significant reduction in tension, anxiety, and aggression provides a stimulating seductive quality to these drugs. Once your pain is under control, we encourage you to discard your unused narcotics. Prescriptions: Oxycodone HCl/Acetaminophen [Percocet 5-325 mg Tablet] 1 tab PO Q6 PRN #25 tab PRN Reason: Referrals: RAJESH CISNEROS MD [Primary Care Provider] - Respiratory Treatments at Home: Deep Breathing/Coughing Discharge Activity: No Lifting Over 10 Pounds, No Lifting/Push/Pulling Report the Following to Your Physician Immediately: Fever over 101 Degrees, Unusual Bleeding - 67 this, Redness, Swelling, Warmth, Increased Soreness
--- NOTE | 2019-01-09 17:40 | Operative Report ---
Operative Report DATE OF SURGERY: 01/09/19 PREOPERATIVE DIAGNOSIS: Left wrist degenerative TFCC tear, skin lesion dorsal-u lnar aspect of the wrist overlying distal ulna OPERATION: Left wrist arthroscopy with debridement TFCC tear, partial synovectomy. punch biopsy dorsal-ulnar skin lesion SURGEON: LIBBY BOURGEOIS ANESTHESIA: IV-Regional COMPLICATIONS: None ESTIMATED BLOOD LOSS: Minimal PROCEDURE: Indication for above procedure: 73-year-old female with history of ulnar-sided wrist pain. Patient had MRI demonstrating TFCC tear. We attempted conservative management including bracing and injections without resolution of patient's symptoms. Furthermore patient had evidence of a skin lesion which was apparently biopsied by dermatology but was negative. After attempting all conservative measures and obtaining medical clearance decision was made to proceed with operative intervention. Procedure In Detail: Patient was seen and evaluated in the preoperative holding area. The LEFT upper extremity was initialized and marked. Patient received 2g of Ancef IV for bacterial prophylaxis. Patient was taken back to the operative room where transferred to the operative table. Once they were adequately anesthetized a nonsterile tourniquet was placed on the upper extremity and patient recieved a [employer] A surgical team debriefing was performed ensuring all instrumentation was available, the surgical procedure was discussed with possible concerns reviewed. Patient was placed in the Acumed wrist distraction with 15 pounds of weight. The upper extremity was prepped with chlorhexidine and alcohol and draped in a sterile fashion. A timeout was done identifying correct patient, procedure and extremity everyone in attendance agree with this and verbalized no concerns. The extremity was exsanguinated the tourniquet was inflated to 250 mmHg. A 3-4 portal was established. Arthroscope introduced into the radiocarpal joint. Dry arthroscopy demonstrated no evidence of degenerative change along the radial aspect there was a fissure within the lunate fossa. Radius scaphoid capitate, radial lunate short and long were identified and intact. Membranous portion of the scapholunate ligament remained intact. Via triangulation a 6R portal was established. There was evidence of a centralradial third TFCC tear. Full-radius resector was then inserted to debride the edges of the tear. A small biter further conformed the edges and this was then further debrided back with an ablator to a smooth surface. Partial synovectomy along the ulnar aspect of the wrist was performed. A midcarpal radial portal was established and via triangulation a midcarpal ulnar portal. There was fraying along the dorsal scapholunate ligament consistent with Tami II disruption no evidence of step-off or widening of the scapholunate or lunotriquetral interval. There was fraying along the proximal aspect of the capitate which was carefully debrided. No evidence of abnormality was appreciated. Along the lesion just overlying the distal ulna a punch biopsy was performed and sent in formalin for further evaluation. Surgical incisions and biopsy was closed with interrupted 4-0 nylon suture. Wound was dressed with Xeroform 4 x 4's and a volar resting splint. Tourniquet was deflated. Patient good peripheral perfusion. Postop plan: Patient follow-up the office in 2 weeks at which point we will proceed with wound check and begin range of motion exercises.
[2019-01-09] MEDS: FENTANYL CITRATE INJ/PF 100 MCG/2 ML AMPUL ONE ×2 (17:50→17:55)
[2019-01-09] MEDS ORDERED: OXYCODONE-ACETAMINOPHEN 5-325 MG TABLET ONE ×2 (18:32→18:34)
[2019-01-09 19:31] VITALS: BP 141/57
== END 2019-01-09 19:31 | disposition home or self-care (01) ==
LOC: OROUT 14:36
PROVIDERS: ATTEND Orthopaedic Surgery
DX: S63.592A Other specified sprain of left wrist, initial encounter (principal); X58.XXXA Exposure to other specified factors, initial encounter; L98.8 Other specified disorders of the skin and subcutaneous tissue; I10 Essential (primary) hypertension; I25.2 Old myocardial infarction; J44.9 Chronic obstructive pulmonary disease, unspecified; I25.10 Atherosclerotic heart disease of native coronary artery without angina pectoris; M06.9 Rheumatoid arthritis, unspecified; F17.210 Nicotine dependence, cigarettes, uncomplicated; E11.9 Type 2 diabetes mellitus without complications; Z79.01 Long term (current) use of anticoagulants; Z79.899 Other long term (current) drug therapy; Z79.82 Long term (current) use of aspirin; Z79.891 Long term (current) use of opiate analgesic
CPT/HCPCS: 93010 ×2; 93005 ×2; 29846; 11104; 36415 ×2; 82947; 84132; 85027; 80048; 81001; 83036; 88305 ×2; 71046; J2250; J3490 ×3; J3010; A9270 ×2; J2704; 1830; J0690; J1100; J2405

== ENCOUNTER 2019-02-03 16:56 | Emergency (ER) | payer MEDICARE ==
[2019-02-03] MEDS ORDERED: RINGERS SOLUTION,LACTATED 1,000 ML IV ONE ×2 (18:02→20:44)
[2019-02-03] MEDS ORDERED: MORPHINE SULFATE 10 MG/ML INJ IV ONE (18:03)
[2019-02-03] MEDS ORDERED: ONDANSETRON HCL INJ/PF 4 MG/2 ML SDV IV ONE (18:03)
--- NOTE | 2019-02-03 18:07 | ER Document Report ---
ED General - General Chief Complaint: Weakness Stated Complaint: WEAKNESS Time Seen by Provider: 02/03/19 17:36 Primary Care Provider: RAJESH CISNEROS MD [Primary Care Provider] - Follow up in 3-5 days Mode of Arrival: Wheelchair Information source: Patient, Relative Notes: 74-year-old female with COPD, type 2 diabetes, hyperlipidemia presents with complaint of weakness, diarrhea, vomiting and fatigue. Patient states that diarrhea started 3 days prior to arrival. She states that she has had multiple episodes of nonbloody diarrhea. Patient also had 2 episodes of vomiting with her last episode yesterday. Patient complains of mild body aching. She denies headache, chest pain, shortness of breath, abdominal pain, dysuria, hematuria. She denies any recent antibiotic use, recent hospitalizations. TRAVEL OUTSIDE OF THE [place] IN LAST 30 DAYS: No - HPI Onset: Other Onset/Duration: Gradual, Persistent Quality of pain: Achy Severity: Mild Associated symptoms: Chills, Diarrhea, Nausea, Vomiting, Weakness. denies: Chest pain, Fever, Headache, Shortness of breath Exacerbated by: Denies Relieved by: Denies Similar symptoms previously: No Recently seen / treated by doctor: No - Related Data Allergies/Adverse Reactions: Penicillins Allergy (Verified 02/03/19 16:58) Past Medical History - General Information source: Patient, Relative, [facility] Records - Social History Smoking Status: Current Every Day Smoker Cigarette use (# per day): Yes - 15 Chew tobacco use (# tins/day): No Smoking Education Provided: Yes - Smoking cessation counseling was provided for 4 minutes at the bedside Frequency of alcohol use: None Drug Abuse: None Lives with: Family Family History: Reviewed & Not Pertinent Patient has suicidal ideation: No Patient has homicidal ideation: No - Past Medical History Cardiac Medical History: Reports: Hx Heart Attack - 2018, Hx Hypercholesterolemia Denies: Hx Coronary Artery Disease, Hx Hypertension Pulmonary Medical History: Reports: Hx COPD - DOES NOT USE INHALERS Denies: Hx Asthma, Hx Bronchitis, Hx Pneumonia Neurological Medical History: Denies: Hx Cerebrovascular Accident, Hx Seizures Endocrine Medical History: Reports: Hx Diabetes Mellitus Type 2 Renal/ Medical History: Denies: Hx Peritoneal Dialysis Musculoskeletal Medical History: Reports Hx Arthritis - RIGHT KNEE Past Surgical History: Reports: Hx Appendectomy, Hx Orthopedic Surgery - R. knee replacement right wrist, Hx Tubal Ligation - Immunizations Hx Diphtheria, Pertussis, Tetanus Vaccination: Yes Hx Pneumococcal Vaccination: 07/17/12 Review of Systems - Review of Systems Constitutional: Chills, Malaise, Weakness EENT: denies: Blurred vision, Difficulty swallowing Cardiovascular: denies: Chest pain, Palpitations, Dizziness Respiratory: denies: Cough, Short of breath Gastrointestinal: Diarrhea, Nausea, Vomiting. denies: Abdominal pain, Blood streaked bowels, Black stools, Rectal bleeding Genitourinary: denies: Dysuria, Hematuria Female Genitourinary: No symptoms reported Musculoskeletal: denies: Back pain Skin: denies: Rash Hematologic/Lymphatic: No symptoms reported Neurological/Psychological: denies: Confusion, Headaches -: Yes All other systems reviewed and negative Physical Exam - Vital signs Vitals: Pulse Resp BP Pulse Ox 120 H 16 157/57 H 95 02/03/19 17:05 02/03/19 17:05 02/03/19 17:05 02/03/19 17:05 - Notes Notes: PHYSICAL EXAMINATION: GENERAL: Frail, cachectic, no acute distress. HEAD: Atraumatic, normocephalic. EYES: Pupils equal round and reactive to light, extraocular movements intact, conjunctiva are normal. ENT: Nares patent, oropharynx clear without exudates. Moist mucous membranes. NECK: Normal range of motion, supple without lymphadenopathy LUNGS: Breath sounds clear to auscultation bilaterally and equal. No wheezes rales or rhonchi. HEART: Regular rate and rhythm without murmurs ABDOMEN: Soft, nontender, nondistended abdomen. No guarding, no rebound. No masses appreciated. Female : deferred Musculoskeletal: Normal range of motion, no pitting or edema. No cyanosis. NEUROLOGICAL: Cranial nerves grossly intact. Normal speech, normal gait. Normal sensory, motor exams PSYCH: Normal mood, normal affect. SKIN: Warm, Dry, normal turgor, no rashes or lesions noted. Course - Re-evaluation Re-evalutation: 02/04/19 15:08 Microbiology 02/03/19 19:56 Urine Culture - Preliminary Catheterized Urine NO GROWTH IN 1 DAY 02/03/19 18:25 - Preliminary Stool - Stool Stool Culture - Preliminary Laboratory 02/03/19 02/03/19 02/03/19 17:35 17:35 17:35 WBC 11.7 H RBC 4.66 Hgb 14.5 Hct 43.5 MCV 94 MCH 31.1 MCHC 33.3 RDW 13.7 Plt Count 392 Seg Neutrophils % 77.5 Lymphocytes % 14.6 Monocytes % 7.0 Eosinophils % 0.4 Basophils % 0.5 Absolute Neutrophils 9.1 H Absolute Lymphocytes 1.7 Absolute Monocytes 0.8 Absolute Eosinophils 0.0 Absolute Basophils 0.1 PT 13.4 INR 0.97 VBG pH VBG pCO2 VBG HCO3 VBG Base Excess Sodium 137.4 Potassium 4.3 Chloride 104 Carbon Dioxide 22 Anion Gap 11 BUN 34 H Creatinine 0.61 Est GFR ( Amer) > 60 Est GFR (Non-Af Amer) > 60 Glucose 294 H Lactic Acid Calcium 10.6 H Total Bilirubin 0.4 Direct Bilirubin 0.4 Neonat Total Bilirubin Not Reportable Neonat Direct Bilirubin Not Reportable Neonat Indirect Bili Not Reportable AST 21 ALT 19 Alkaline Phosphatase 125 Troponin I Total Protein 7.5 Albumin 4.0 Urine Color Urine Appearance Urine pH Ur Specific [place] Urine Protein Urine Glucose (UA) Urine Ketones Urine Blood Urine Nitrite Urine Bilirubin Urine Urobilinogen Ur Leukocyte Esterase Urine WBC (Auto) Urine RBC (Auto) U Hyaline Cast (Auto) Urine Bacteria (Auto) Urine Mucus (Auto) Urine Ascorbic Acid POC Stool Occult Blood C. difficile Tox (PCR) Influenza A (Rapid) Influenza B (Rapid) 02/03/19 02/03/19 02/03/19 17:35 18:25 18:26 WBC RBC Hgb Hct MCV MCH MCHC RDW Plt Count Seg Neutrophils % Lymphocytes % Monocytes % Eosinophils % Basophils % Absolute Neutrophils Absolute Lymphocytes Absolute Monocytes Absolute Eosinophils Absolute Basophils PT INR VBG pH VBG pCO2 VBG HCO3 VBG Base Excess Sodium Potassium Chloride Carbon Dioxide Anion Gap BUN Creatinine Est GFR ( Amer) Est GFR (Non-Af Amer) Glucose Lactic Acid Calcium Total Bilirubin Direct Bilirubin Neonat Total Bilirubin Neonat Direct Bilirubin Neonat Indirect Bili AST ALT Alkaline Phosphatase Troponin I < 0.012 Total Protein Albumin Urine Color Urine Appearance Urine pH Ur Specific Jen[place] Urine Protein Urine Glucose (UA) Urine Ketones Urine Blood Urine Nitrite Urine Bilirubin Urine Urobilinogen Ur Leukocyte Esterase Urine WBC (Auto) Urine RBC (Auto) U Hyaline Cast (Auto) Urine Bacteria (Auto) Urine Mucus (Auto) Urine Ascorbic Acid POC Stool Occult Blood NEGATIVE C. difficile Tox (PCR) NEGATIVE Influenza A (Rapid) Influenza B (Rapid) 02/03/19 02/03/19 02/03/19 19:17 19:17 19:56 WBC RBC Hgb Hct MCV MCH MCHC RDW Plt Count Seg Neutrophils % Lymphocytes % Monocytes % Eosinophils % Basophils % Absolute Neutrophils Absolute Lymphocytes Absolute Monocytes Absolute Eosinophils Absolute Basophils PT INR VBG pH 7.36 VBG pCO2 49.5 VBG HCO3 27.5 VBG Base Excess 1.3 Sodium Potassium Chloride Carbon Dioxide Anion Gap BUN Creatinine Est GFR ( Amer) Est GFR (Non-Af Amer) Glucose Lactic Acid 1.6 Calcium Total Bilirubin Direct Bilirubin Neonat Total Bilirubin Neonat Direct Bilirubin Neonat Indirect Bili AST ALT Alkaline Phosphatase Troponin I Total Protein Albumin Urine Color YELLOW Urine Appearance SLIGHTLY-CLOUDY Urine pH 5.0 Ur Specific Jen[place] 1.020 Urine Protein NEGATIVE Urine Glucose (UA) 50 H Urine Ketones 20 H Urine Blood NEGATIVE Urine Nitrite NEGATIVE Urine Bilirubin NEGATIVE Urine Urobilinogen NEGATIVE Ur Leukocyte Esterase NEGATIVE Urine WBC (Auto) 2 Urine RBC (Auto) 0 U Hyaline Cast (Auto) 4 Urine Bacteria (Auto) TRACE Urine Mucus (Auto) RARE Urine Ascorbic Acid NEGATIVE POC Stool Occult Blood C. difficile Tox (PCR) Influenza A (Rapid) Influenza B (Rapid) 02/03/19 19:56 WBC RBC Hgb Hct MCV MCH MCHC RDW Plt Count Seg Neutrophils % Lymphocytes % Monocytes % Eosinophils % Basophils % Absolute Neutrophils Absolute Lymphocytes Absolute Monocytes Absolute Eosinophils Absolute Basophils PT INR VBG pH VBG pCO2 VBG HCO3 VBG Base Excess Sodium Potassium Chloride Carbon Dioxide Anion Gap BUN Creatinine Est GFR ( Amer) Est GFR (Non-Af Amer) Glucose Lactic Acid Calcium Total Bilirubin Direct Bilirubin Neonat Total Bilirubin Neonat Direct Bilirubin Neonat Indirect Bili AST ALT Alkaline Phosphatase Troponin I Total Protein Albumin Urine Color Urine Appearance Urine pH Ur Specific [place] Urine Protein Urine Glucose (UA) Urine Ketones Urine Blood Urine Nitrite Urine Bilirubin Urine Urobilinogen Ur Leukocyte Esterase Urine WBC (Auto) Urine RBC (Auto) U Hyaline Cast (Auto) Urine Bacteria (Auto) Urine Mucus (Auto) Urine Ascorbic Acid POC Stool Occult Blood C. difficile Tox (PCR) Influenza A (Rapid) NEGATIVE Influenza B (Rapid) NEGATIVE Chest X-Ray 02/03/19 18:01 IMPRESSION: NO ACUTE RADIOGRAPHIC FINDING IN THE CHEST. Temp Pulse Resp BP Pulse Ox 97.9 F 120 H 16 168/97 H 93 02/03/19 22:01 02/03/19 17:05 02/03/19 22:01 02/03/19 22:01 02/03/19 22:01 74-year-old female presents with complaint of weakness, nausea, vomiting and diarrhea for 3 days. Initially patient is tachycardic but this resolved after IV fluid resuscitation. Patient has no hypotension. Septic workup was obtained and within normal limits. Influenza negative, C. difficile negative. Patient did receive 2 L of IV fluids. On reevaluation her color is better and she states that she is feeling better. [id number] is at the bedside and states that despite the patient telling me that she has not been able to sleep she has been sleeping the entire time she has been in the emergency department. Presentation of an elderly patient in no acute distress with complaints of nausea, vomiting, diarrhea. Patient does appear to be dehydrated. This is consistent with likely viral gastroenteritis. Patient has no abdominal t enderness on exam and specifically no tenderness in the RLQ, LLQ, RUQ. Able to tolerate oral intake here in the emergency department. Low clinical suspicion for any acute life-threatening etiology based on exam and history including acute cholecystitis, SBO, appendicitis, nephrolithiasis, or pylonephritis. CMP without evidence of acute hepatitis or significant dehydration. Will plan for discharge at this time with return precautions and followup recommendations. - Vital Signs Vital signs: Temp Pulse Resp BP Pulse Ox 97.9 F 120 H 16 168/97 H 93 02/03/19 22:01 02/03/19 17:05 02/03/19 22:01 02/03/19 22:01 02/03/19 22:01 - Laboratory Result Diagrams: 02/03/19 17:35 02/03/19 17:35 Laboratory results interpreted by me: 02/03/19 02/03/19 02/03/19 17:35 17:35 19:56 WBC 11.7 H Absolute Neutrophils 9.1 H BUN 34 H Glucose 294 H Calcium 10.6 H Urine Glucose (UA) 50 H Urine Ketones 20 H - Diagnostic Test Radiology reviewed: Image reviewed, Reports reviewed - EKG Interpretation by De EKG shows normal: Sinus rhythm Rate: Tachycardia Rhythm: NSR When compared to previous EKG there are: No significant change Discharge - Discharge Clinical Impression: Dehydration, Gastroenteritis, Nausea vomiting and diarrhea Condition: Good Disposition: HOME, SELF-CARE Instructions: Antinausea Medication ([facility]), Clear Liquid Diet ([facility]), Dehydration ([facility]), Diarrhea, Nonspecific ([facility]), Gastroenteritis (adult) ([facility]), Intravenous (IV) Fluids ([facility]), Vomiting ([facility]) Additional Instructions: Your symptoms are likely due to a viral illness and should resolve in the next several days. You can take [id number] loperamide also known as Imodium as needed for diarrhea per box instructions. Continue to stay hydrated with plenty of solution such as Gatorade or Pedialyte. You are being prescribed Zofran to take as needed for nausea and vomiting. Please return if you develop severe abdominal pain, pass out, become unable to tolerate any oral fluids for 12 more hours, or any other symptoms that are concerning to you. Forms: Elevated Blood Pressure Referrals: RAJESH CISNEROS MD [Primary Care Provider] - Follow up in 3-5 days
[2019-02-03 18:12] LABS: ABSOLUTE BASOPHILS # (AUTO) 0.1 10^3/uL (0.0-0.2); ABSOLUTE LYMPHOCYTES (AUTO) 1.7 10^3/uL (0.5-4.7); ABSOLUTE MONOCYTES (AUTO) 0.8 10^3/uL (0.1-1.4); ABSOLUTE NEUT (AUTO) 9.1 10^3/uL (1.7-8.2); BASOPHILS % (AUTO) 0.5 % (0-2); EOSINOPHILS % (AUTO) 0.4 % (0-6); HEMATOCRIT 43.5 % (36.0-47.0); HEMOGLOBIN 14.5 g/dL (12.0-15.5); LYMPHOCYTES % (AUTO) 14.6 % (13-45); MEAN CORPUSCULAR HEMOGLOBIN 31.1 pg (27.0-33.4); MEAN CORPUSCULAR HGB CONC 33.3 g/dL (32.0-36.0); MEAN CORPUSCULAR VOLUME 94 fl (80-97); PLATELET COUNT 392 10^3/uL (150-450); RED BLOOD COUNT 4.66 10^6/uL (3.72-5.28); RED CELL DISTRIBUTION WIDTH 13.7 % (11.5-14.0); SEGMENTED NEUTROPHILS % (AUTO) 77.5 % (42-78); TOTAL CELLS COUNTED % (AUTO) 100 %; WHITE BLOOD COUNT 11.7 10^3/uL (4.0-10.5)
[2019-02-03 18:13] LABS: INTERNATIONAL RATION (INR) 0.97; PROTHROMBIN TIME 13.4 SEC (11.4-15.4)
[2019-02-03 18:15] LABS: ALANINE AMINOTRANSFERASE 19 U/L (9-52); ALKALINE PHOSPHATASE 125 U/L (38-126); ANION GAP 11 (5-19); ASPARTATE AMINO TRANSFERASE 21 U/L (14-36); BILIRUBIN,DIRECT 0.4 mg/dL (0.0-0.4); BILIRUBIN,TOTAL 0.4 mg/dL (0.2-1.3); BLOOD UREA NITROGEN 34 mg/dL (7-20); CALCIUM 10.6 mg/dL (8.4-10.2); CARBON DIOXIDE 22 mmol/L (22-30); CHLORIDE 104 mmol/L (98-107); GLUCOSE 294 mg/dL (75-110); POTASSIUM 4.3 mmol/L (3.6-5.0); SODIUM 137.4 mmol/L (137-145); TOTAL PROTEIN 7.5 g/dL (6.3-8.2)
--- NOTE | 2019-02-03 18:54 | RADIOLOGY REPORT (SQ) ---
EXAM DESCRIPTION: CHEST SINGLE VIEW COMPLETED DATE/TIME: 02/03/2019 6:43 pm REASON FOR STUDY: weakness COMPARISON: 01/02/2019 EXAM PARAMETERS: NUMBER OF VIEWS: One view. TECHNIQUE: Single frontal radiographic view of the chest acquired. RADIATION DOSE: NA LIMITATIONS: None. FINDINGS: LUNGS AND PLEURA: No opacities, masses or pneumothorax. No pleural effusion. MEDIASTINUM AND HILAR STRUCTURES: No masses. Contour normal. HEART AND VASCULAR STRUCTURES: Heart normal in size. Normal vasculature. BONES: No acute findings. HARDWARE: None in the chest. OTHER: No other significant finding. IMPRESSION: NO ACUTE RADIOGRAPHIC FINDING IN THE CHEST. TECHNICAL DOCUMENTATION: JOB ID: [id number] [employer]- All Rights Reserved Reading location - IP/workstation name: [email or web address]
[2019-02-03 19:28] LABS: VENOUS BLOOD BASE EXCESS 1.3 mmol/L; VENOUS BLOOD HCO3 27.5 mmol/L (20-32); VENOUS BLOOD PCO2 49.5 mmHg (35-63); VENOUS BLOOD PH 7.36 (7.30-7.42)
[2019-02-03 20:18] LABS: APPEARANCE,URINE SLIGHTLY-CLOUDY; BILIRUBIN,URINE NEGATIVE (NEGATIVE); COLOR,URINE YELLOW; GLUCOSE, URINE 50 mg/dL (NEGATIVE); KETONES,URINE 20 mg/dL (NEGATIVE); LEUKOCYTE ESTERASE,URINE NEGATIVE (NEGATIVE); NITRITE,URINE NEGATIVE (NEGATIVE); PROTEIN,URINE NEGATIVE (NEGATIVE); UROBILINOGEN,URINE NEGATIVE mg/dL (<2.0)
[2019-02-03 20:26] LABS: A TYPE INFLUENZA AG NEGATIVE (NEGATIVE); B INFLUENZA AG NEGATIVE (NEGATIVE)
[2019-02-03] MEDS ORDERED: FENTANYL CITRATE INJ/PF 100 MCG/2 ML AMPUL IV ONE (20:56)
[2019-02-03] MEDS ORDERED: ONDANSETRON ODT 4 MG TAB (6 TAB/ER DISP) PO PRN (21:04)
--- NOTE | 2019-02-03 21:04 | EKG REPORT ---
SEVERITY:- BORDERLINE ECG - SINUS TACHYCARDIA PROBABLE LEFT ATRIAL ABNORMALITY : Confirmed by: Johana East MD 03-Feb-2019 21:02:54
[2019-02-03] MEDS ORDERED: HYDROCODONE/ACETAMINOPHEN 5-325 MG (6 TAB/ER DISP) PO PRN (21:06)
[2019-02-03 22:09] VITALS: BP 168/97
== END 2019-02-03 22:29 | disposition home or self-care (01) ==
LOC: ER 16:56
DX: K52.9 Noninfective gastroenteritis and colitis, unspecified (principal); E86.0 Dehydration; R53.1 Weakness; R53.83 Other fatigue; R53.81 Other malaise; R52 Pain, unspecified; R68.83 Chills (without fever); R11.2 Nausea with vomiting, unspecified; R00.0 Tachycardia, unspecified; J44.9 Chronic obstructive pulmonary disease, unspecified; E11.9 Type 2 diabetes mellitus without complications; F17.210 Nicotine dependence, cigarettes, uncomplicated; Z71.6 Tobacco abuse counseling; Z88.0 Allergy status to penicillin
CPT/HCPCS: 93005; 99406; 99285; 96361; 51701; 96374; 96375; 36415; 87040; 87045; 87086; 87205; 82962; 85025; 85610; 80053; 81001; 84484; 87493; 82803; 83605; 87804; 71045; 93010; J3010; J2270; J2405; J7120; A9270 ×2

== ENCOUNTER 2019-03-03 17:35 | Emergency (ER) | payer MEDICARE ==
[2019-03-03] MEDS ORDERED: ASPIRIN 81 MG TABLET, CHEWABLE PO ONE (17:53)
--- NOTE | 2019-03-03 17:55 | ER Document Report ---
ED Medical Screen (RME) - General Chief Complaint: Chest Pain Stated Complaint: CHEST PAIN Time Seen by Provider: 03/03/19 17:50 Primary Care Provider: RAJESH CISNEROS MD [Primary Care Provider] - Follow up as needed Mode of Arrival: Wheelchair Information source: Patient Notes: 74-year-old female presented to ED for complaint of bilateral leg swelling chest pain shortness of breath. She states she had a VT about a year ago. She has a history of high cholesterol and high blood pressure. She states she smokes 3 or 4 cigarettes a day. Patient is alert oriented respirations regular and unlabored speaking in full sentence. Bilateral pedal edema I have greeted and performed a rapid initial assessment of this patient. A comprehensive ED assessment and evaluation of the patient, analysis of test results and completion of medical decision making process will be conducted by an additional ED providers. Dictation of this chart was performed using voice recognition software; therefore, there may be some unintended grammatical errors. TRAVEL OUTSIDE OF THE [place] IN LAST 30 DAYS: No - Related Data Allergies/Adverse Reactions: Penicillins Allergy (Verified 03/03/19 17:37) Past Medical History - Past Medical History Cardiac Medical History: Reports: Hx Heart Attack - 2018, Hx Hypercholesterolemia Denies: Hx Coronary Artery Disease, Hx Hypertension Pulmonary Medical History: Reports: Hx COPD - DOES NOT USE INHALERS Denies: Hx Asthma, Hx Bronchitis, Hx Pneumonia Neurological Medical History: Denies: Hx Cerebrovascular Accident, Hx Seizures Endocrine Medical History: Reports: Hx Diabetes Mellitus Type 2 Renal/ Medical History: Denies: Hx Peritoneal Dialysis Musculoskeltal Medical History: Reports Hx Arthritis - RIGHT KNEE Past Surgical History: Reports: Hx Appendectomy, Hx Orthopedic Surgery - R. knee replacement right wrist, Hx Tubal Ligation - Immunizations Hx Diphtheria, Pertussis, Tetanus Vaccination: Yes History of Influenza Vaccine for 07/2017 - 12/2017 Season: Yes Influenza Administration Date for 07/2017 - 12/2017 Season: 07/17/17 Physical Exam - Vital signs Vitals: Temp Pulse Resp BP Pulse Ox 98.5 F 114 H 24 H 171/88 H 94 03/03/19 17:48 03/03/19 17:48 03/03/19 17:48 03/03/19 17:48 03/03/19 17:48 Course - Vital Signs Vital signs: Temp Pulse Resp BP Pulse Ox 98.5 F 114 H 24 H 171/88 H 94 03/03/19 17:48 03/03/19 17:48 03/03/19 17:48 03/03/19 17:48 03/03/19 17:48 Doctor's Discharge - Discharge Referrals: RAJESH CISNEROS MD [Primary Care Provider] - Follow up as needed
[2019-03-03 18:33] LABS: ABSOLUTE BASOPHILS # (AUTO) 0.1 10^3/uL (0.0-0.2); ABSOLUTE EOSINOPHILS # (AUTO) 0.2 10^3/uL (0.0-0.6); ABSOLUTE LYMPHOCYTES (AUTO) 2.1 10^3/uL (0.5-4.7); ABSOLUTE MONOCYTES (AUTO) 0.8 10^3/uL (0.1-1.4); ABSOLUTE NEUT (AUTO) 6.8 10^3/uL (1.7-8.2); BASOPHILS % (AUTO) 0.7 % (0-2); EOSINOPHILS % (AUTO) 2.2 % (0-6); HEMATOCRIT 39.8 % (36.0-47.0); HEMOGLOBIN 13.2 g/dL (12.0-15.5); LYMPHOCYTES % (AUTO) 20.7 % (13-45); MEAN CORPUSCULAR HEMOGLOBIN 30.9 pg (27.0-33.4); MEAN CORPUSCULAR HGB CONC 33.1 g/dL (32.0-36.0); MEAN CORPUSCULAR VOLUME 93 fl (80-97); PLATELET COUNT 370 10^3/uL (150-450); RED BLOOD COUNT 4.27 10^6/uL (3.72-5.28); RED CELL DISTRIBUTION WIDTH 16.1 % (11.5-14.0); SEGMENTED NEUTROPHILS % (AUTO) 68.4 % (42-78); TOTAL CELLS COUNTED % (AUTO) 100 %; WHITE BLOOD COUNT 9.9 10^3/uL (4.0-10.5)
--- NOTE | 2019-03-03 18:43 | RADIOLOGY REPORT (SQ) ---
EXAM DESCRIPTION: CHEST 2 VIEWS COMPLETED DATE/TIME: 03/03/2019 6:26 pm REASON FOR STUDY: chest pain pedal edema, hx of mi COMPARISON: 02/03/2019 TECHNIQUE: Frontal and lateral radiographic views of the chest acquired. NUMBER OF VIEWS: Two view. LIMITATIONS: None. FINDINGS: LUNGS AND PLEURA: No pneumothorax. Mildly increased interstitial prominence. No consolid ation or pleural effusion. MEDIASTINUM AND HILAR STRUCTURES: Stable. HEART AND VASCULAR STRUCTURES: Stable. BONES: No acute findings. HARDWARE: None in the chest. OTHER: No other significant finding. IMPRESSION: Mildly increased interstitial prominence. No consolidation or pleural effusion. TECHNICAL DOCUMENTATION: JOB ID: [id number] [employer]- All Rights Reserved Reading location - IP/workstation name: [email or web address]
[2019-03-03 18:49] LABS: ALANINE AMINOTRANSFERASE 16 U/L (9-52); ALBUMIN 3.5 g/dL (3.5-5.0); ALKALINE PHOSPHATASE 76 U/L (38-126); ANION GAP 10 (5-19); ASPARTATE AMINO TRANSFERASE 17 U/L (14-36); BILIRUBIN,DIRECT 0.3 mg/dL (0.0-0.4); BILIRUBIN,TOTAL 0.3 mg/dL (0.2-1.3); BLOOD UREA NITROGEN 10 mg/dL (7-20); CALCIUM 9.4 mg/dL (8.4-10.2); CARBON DIOXIDE 23 mmol/L (22-30); CHLORIDE 106 mmol/L (98-107); GLUCOSE 125 mg/dL (75-110); SODIUM 138.8 mmol/L (137-145); TOTAL PROTEIN 6.7 g/dL (6.3-8.2)
[2019-03-03 19:01] LABS: CREATINE KINASE MB 0.72 ng/mL (<4.55); NT PRO BNP 1250 pg/mL (<450); TROPONIN I < 0.012 ng/mL
[2019-03-03 19:13] LABS: APPEARANCE,URINE SLIGHTLY-CLOUDY; BILIRUBIN,URINE NEGATIVE (NEGATIVE); COLOR,URINE YELLOW; GLUCOSE, URINE NEGATIVE (NEGATIVE); KETONES,URINE NEGATIVE (NEGATIVE); LEUKOCYTE ESTERASE,URINE LARGE (NEGATIVE); NITRITE,URINE POSITIVE (NEGATIVE); PROTEIN,URINE NEGATIVE (NEGATIVE); URINE SPECIFIC GRAVITY 1.009; UROBILINOGEN,URINE NEGATIVE mg/dL (<2.0)
[2019-03-03] MEDS ORDERED: ACETAMINOPHEN 325 MG TABLET PO ONE (20:06)
[2019-03-03] MEDS ORDERED: GABAPENTIN 300 MG CAPSULE PO ONE (21:34)
--- NOTE | 2019-03-03 22:02 | ER Document Report ---
ED General - General Chief Complaint: Chest Pain Stated Complaint: CHEST PAIN Time Seen by Provider: 03/03/19 17:50 Primary Care Provider: RAJESH CISNEROS MD [Primary Care Provider] - Follow up in 3-5 days Mode of Arrival: Wheelchair Notes: Patient is a 74-year-old female with a past medical history of diabetes, hypertension, presents complaining of multiple issues. Patient's main reason for coming to the emergency department today is due to concerns of bilateral lower extremity swelling. Patient states that she has had swelling off and on in the extremities for months but feels that it is been more intense recently and is associated with a burning, stinging, intermittent pain diffusely to the lower extremities. Nothing seems to improve or worsen this pain or the swelling although she has been trying to elevate her legs and thinks this may have helped. Regards the pain is being severe. She has not seen her primary care physician guarding this concern. She states that she also had a brief episode of chest discomfort prior to coming to the hospital today. States that it was a burning, stabbing pain over the left side of her chest that did not radiate. No associated nausea, vomiting, diaphoresis or shortness of breath. She denies any ongoing chest pain currently. Patient also reports that she has been having increasingly frequent falls and that this is been ongoing for months. States that she had a fall yesterday and did strike the back of her head on the ground. Denies any focal weakness, numbness or confusion since that time. No vomiting. No use of anticoagulation. TRAVEL OUTSIDE OF THE [place] IN LAST 30 DAYS: No - Related Data Allergies/Adverse Reactions: Penicillins Allergy (Verified 03/03/19 17:37) Past Medical History - General Information source: Patient - Social History Smoking Status: Current Every Day Smoker Frequency of alcohol use: None Drug Abuse: None Lives with: Spouse/Significant other Family History: Reviewed & Not Pertinent Patient has suicidal ideation: No Patient has homicidal ideation: No - Past Medical History Cardiac Medical History: Reports: Hx Heart Attack - 2018, Hx Hypercholesterolemia Denies: Hx Coronary Artery Disease, Hx Hypertension Pulmonary Medical History: Reports: Hx COPD - DOES NOT USE INHALERS Denies: Hx Asthma, Hx Bronchitis, Hx Pneumonia Neurological Medical History: Denies: Hx Cerebrovascular Accident, Hx Seizures Endocrine Medical History: Reports: Hx Diabetes Mellitus Type 2 Renal/ Medical History: Denies: Hx Peritoneal Dialysis Musculoskeletal Medical History: Reports Hx Arthritis - RIGHT KNEE Past Surgical History: Reports: Hx Appendectomy, Hx Orthopedic Surgery - R. knee replacement right wrist, Hx Tubal Ligation - Immunizations Hx Diphtheria, Pertussis, Tetanus Vaccination: Yes Hx Pneumococcal Vaccination: 07/17/12 Review of Systems - Review of Systems Notes: Constitutional: Negative for fever. HENT: Negative for sore throat. Eyes: Negative for visual changes. Cardiovascular: Positive for chest pain. Respiratory: Negative for shortness of breath. Gastrointestinal: Negative for abdominal pain, vomiting or diarrhea. Genitourinary: Negative for dysuria. Musculoskeletal: Positive for bilateral upper extremity edema Skin: Negative for rash. Neurological: Negative for headaches, weakness or numbness. 10 point ROS negative except as marked above and in HPI. Physical Exam - Vital signs Vitals: Temp Pulse Resp BP Pulse Ox 98.5 F 114 H 24 H 171/88 H 94 03/03/19 17:48 03/03/19 17:48 03/03/19 17:48 03/03/19 17:48 03/03/19 17:48 Interpretation: Hypertensive, Tachycardic - Baseline per review of previous vital signs Notes: PHYSICAL EXAMINATION: GENERAL: Well-appearing, well-nourished and in no acute distress. HEAD: Atraumatic, normocephalic. EYES: Pupils equal round and reactive to light, extraocular movements intact, sclera anicteric, conjunctiva are normal. ENT: nares patent, oropharynx clear without exudates. Moist mucous membranes. NECK: Normal range of motion, supple without lymphadenopathy LUNGS: Breath sounds clear to auscultation bilaterally and equal. No wheezes rales or rhonchi. HEART: Regular rate and rhythm without murmurs ABDOMEN: Soft, nontender, normoactive bowel sounds. No guarding, no rebound. No masses appreciated. EXTREMITIES: Normal range of motion, minimal, trace edema bilateral lower extremity that is equal and symmetric no cyanosis. NEUROLOGICAL: Face symmetric. Tongue protrudes midline. Extraocular motions intact. Pupils are 2 mm and equally reactive. Normal speech. 5 out of 5 strength in both the distal and proximal upper and lower extremities bilaterally. Sensation is grossly intact throughout. Finger to nose testing n ormal. Pronator drift normal. PSYCH: Normal mood, normal affect. SKIN: Warm, Dry, normal turgor, small soft tissue hematoma on the central occiput Course - Re-evaluation Re-evalutation: 03/03/19 21:34 Patient presents with multiple concerns. 1.) Bilateral lower extremity edema: On exam the patient has very trace edema bilaterally that is equal and symmetric without one side being worse than the other. Compression stockings have been applied for patient's comfort. Patient's symptoms are more consistent with ongoing peripheral neuropathy as her she and her both note that she frequently has severe pain in her bi lateral lower extremities and does have a history of being diagnosed with this issue. 2.) Chest pain: Patient states that she had a brief episode of chest pain that was stabbing, resolved quite quickly and is no longer present. EKG without acute ischemic changes. Denies any active symptoms at this time. Had a cardiac catheterization last year with no evidence of coronary artery disease. Denies pain. Patient was noted to be mildly tachycardic at time of initial presentation though her heart rate at the time of my assessment is 93. Low clinical suspicion for an acute PE given the absence of any ongoing chest hypoxia, tachypnea or complaints of pleuritic pain. Chest x-ray shows some in terstitial markings, not consistent with pneumonia. Will repeat second troponin to ensure that this remains normal. 3.) Fall: Patient has had increased frequency of falls over the last several months. I have encouraged her to follow close with her primary care doctor for physical therapy and rehab to try to prevent recurrent falls. The patient did fall last night and hit her head. Given her advanced age CT of the head and cervical spine will be obtained. She has no other trauma to any location. Small hematoma to the occiput. 03/03/19 23:15 CT of the head and cervical spine are normal. Repeat troponin remains normal. Patient continues to be without any chest discomfort of any kind and is glad to be able to go home. Her urinalysis does show pyuria but the patient denies any evidence of dysuria. Will not initiate treatment given the absence of symptoms and have sent a culture. At this time will discharge with return precautions and follow-up recommendations. Verbal discharge instructions given a the bedside and opportunity for questions given. Medication warnings reviewed. Patient is in agreement with this plan and has verbalized understanding of return precautions and the need for primary care follow-up in the next 24-72 hours. - Vital Signs Vital signs: Temp Pulse Resp BP Pulse Ox 98.5 F 100 22 H 148/122 H 96 03/03/19 17:48 03/03/19 18:52 03/03/19 18:39 03/03/19 18:39 03/03/19 18:39 - Laboratory Result Diagrams: 03/03/19 18:16 03/03/19 18:16 Laboratory results interpreted by me: 03/03/19 03/03/19 03/03/19 18:16 18:16 18:16 RDW 16.1 H Creatinine 0.39 L Glucose 125 H NT-Pro-B Natriuret Pep 1250 H Urine Blood Urine Nitrite Ur Leukocyte Esterase 03/03/19 18:56 RDW Creatinine Glucose NT-Pro-B Natriuret Pep Urine Blood SMALL H Urine Nitrite POSITIVE H Ur Leukocyte Esterase LARGE H - Diagnostic Test Radiology reviewed: Image reviewed, Reports reviewed Radiology results interpreted by me: 03/03/19 23:15 CT head: No acute intracranial bleed or mass. No skull fracture. Chest x-ray: Interstitial prominences bilaterally, no focal infiltrate - EKG Interpretation by Me Additional EKG results interpreted by me: 03/03/19 23:17 Sinus tachycardia, rate 115. No ST elevations or depressions. QTC is 471. Discharge - Discharge Clinical Impression: Swelling of both lower extremities, Diabetic peripheral neuropathy, Chest discomfort Condition: Good Disposition: HOME, SELF-CARE Additional Instructions: You were seen today for chest pain. The exact cause of your pain is unclear. However, based on your cardiac enzyme testing, chest x-ray, and EKG it does not appear that it is from an immediately life-threatening cause at this time. Although your testing here is normal is critical that you follow-up with your primary care physician for continued evaluation of this chest pain and possible stress testing. I recommended you see your physician within the next 24-48 hours to be evaluated for consideration of a stress test. Please return to emergency department immediately if you have worsening of your chest pain, shortness of breath, vomiting, become unable to exert yourself due to pain or difficulty breathing, you pass out, or have any pain that radiates into your arms, jaw, or back. Please also return if you have any additional symptoms that are concerning to you. In regards to the pain and intermittent swelling of her bilateral lower extremities this may be related to some mild fluid retention. Wear the compression stockings that have been provided at night to reduce the swelling in the morning. You have also been prescribed gabapentin to help treat some of your chronic pain in the lower extremities likely related to diabetic peripheral neuropathy. Prescriptions: Gabapentin [Neurontin 300 mg Capsule] 300 mg PO Q8 #90 cap Referrals: RAJESH CISNEROS MD [Primary Care Provider] - Follow up in 3-5 days
--- NOTE | 2019-03-03 22:10 | EKG REPORT ---
SEVERITY:- ABNORMAL ECG - SINUS TACHYCARDIA NONSPECIFIC ST-T CHANGES DIFFUSE LEADS : Confirmed by: Thiago Gomez MD 03-Mar-2019 22:09:17
--- NOTE | 2019-03-03 22:47 | RADIOLOGY REPORT (SQ) ---
EXAM DESCRIPTION: CT HEAD WITHOUT IV CONTRAST COMPLETED DATE/TME: 03/03/2019 21:34 CLINICAL HISTORY: 74 years, Female, fall COMPARISON: 11/05/2016 CT TECHNIQUE: 71 Images stored on PACS. All CT scanners at this facility use dose modulation, iterative reconstruction, and/or weight based dosing when appropriate to reduce radiation dose to as low as reasonably achievable (ALARA). [facility]: Dose Right [facility]: CareDose [facility]: Dose Right [facility]: Teradose 4D [facility]: [employer] LIMITATIONS: None. FINDINGS: The globes are intact. Mucosal thickening of the maxillary sinuses bilaterally and right mastoid air cells. No displaced or depressed skull fracture. No intra or extra-axial hemorrhage. CT is limited for evaluation of acute infarct. There is no CT evidence for large or territorial acute infarct. Diffuse age-appropriate atrophy. No mass or midline shift. Moderate small vessel ischemic change IMPRESSION: Atrophy with small vessel ischemic change. Mucosal thickening maxillary sinuses and right mastoid air cells TECHNICAL DOCUMENTATION: Quality ID # [id number]: Final reports with documentation of one or more dose reduction techniques (e.g., Automated exposure control, adjustment of the mA and/or kV according to patient size, use of iterative reconstruction technique) copyright 2011 [employer]- All Rights Reserved
[2019-03-03] MEDS ORDERED: CEPHALEXIN 500 MG CAPSULE PO ONE (23:13)
--- NOTE | 2019-03-03 23:26 | RADIOLOGY REPORT (SQ) ---
EXAM DESCRIPTION: CT CERVICAL SPINE WITHOUT IV CONTRAST COMPLETED DATE/TME: 03/03/2019 21:34 CLINICAL HISTORY: 74 years, Female, fall EXAM DESCRIPTION: CLINICAL HISTORY: fall COMPARISON: None Available TECHNIQUE: Contiguous axial images of the cervical spine were obtained without the administration of intravenous contrast followed by reconstruction images. This exam was performed according to our departmental dose-optimization program, which includes automated exposure control, adjustment of the mA and/or kV according to patient size and/or use of iterative reconstruction technique. FINDINGS: There are degenerative changes of the bones. There is no acute fracture or subluxation. Prevertebral soft tissues are within normal limits. IMPRESSION: No acute fracture or subluxation
[2019-03-04 04:33] VITALS: BP 152/69
== END 2019-03-04 04:32 | disposition home or self-care (01) ==
LOC: ER 17:35
DX: E11.40 Type 2 diabetes mellitus with diabetic neuropathy, unspecified (principal); M79.89 Other specified soft tissue disorders; R60.9 Edema, unspecified; S00.03XA Contusion of scalp, initial encounter; W19.XXXA Unspecified fall, initial encounter; R07.9 Chest pain, unspecified; R29.6 Repeated falls; R00.0 Tachycardia, unspecified; J44.9 Chronic obstructive pulmonary disease, unspecified; I10 Essential (primary) hypertension; F17.200 Nicotine dependence, unspecified, uncomplicated; Z88.0 Allergy status to penicillin
CPT/HCPCS: 93005; 99285; 36415; 87086; 82553; 85025; 87088; 80053; 81001; 84484; 87186; 83880; 71046; 70450; 72125; 93010; A9270 ×3

== ENCOUNTER 2019-03-29 11:36 | Emergency (ER) | payer MEDICARE ==
[2019-03-29 12:07] VITALS: BP 139/80
--- NOTE | 2019-03-29 14:51 | RADIOLOGY REPORT (SQ) ---
EXAM DESCRIPTION: WRIST LEFT 3 VIEWS COMPLETED DATE/TIME: 03/29/2019 2:32 pm REASON FOR STUDY: twisted left wrist COMPARISON: None. NUMBER OF VIEWS: Three views. TECHNIQUE: AP, lateral, and oblique radiographic images acquired of the left wrist. LIMITATIONS: None. FINDINGS: MINERALIZATION: Osteopenia. BONES: No acute fracture or dislocation. No worrisome bone lesions. Normal alignment. SOFT TISSUES: No soft tissue swelling. No foreign body. OTHER: No other significant finding. IMPRESSION: NEGATIVE STUDY OF THE LEFT WRIST. NO RADIOGRAPHIC EVIDENCE OF ACUTE INJURY. TECHNICAL DOCUMENTATION: JOB ID: [id number] [employer]- All Rights Reserved Reading location - IP/workstation name: [email or web address]
--- NOTE | 2019-03-29 14:53 | RADIOLOGY REPORT (SQ) ---
EXAM DESCRIPTION: KNEE RIGHT 4 VIEWS COMPLETED DATE/TIME: 03/29/2019 2:32 pm REASON FOR STUDY: twisted right knee COMPARISON: None. NUMBER OF VIEWS: Four views. TECHNIQUE: AP, lateral, and both oblique radiographic images acquired of the right knee. LIMITATIONS: None. FINDINGS: MINERALIZATION: Normal. BONES: Total knee arthroplasty in good position. JOINT: No effusion. SOFT TISSUES: No soft tissue swelling. No radio-opaque foreign body. OTHER: No other significant finding. IMPRESSION: NEGATIVE STUDY OF THE RIGHT KNEE. NO RADIOGRAPHIC EVIDENCE OF ACUTE INJURY. TECHNICAL DOCUMENTATION: JOB ID: [id number] [employer]- All Rights Reserved Reading location - IP/workstation name: [email or web address]
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
== END 2019-03-29 19:00 | disposition home or self-care (01) ==
LOC: ER 11:36
DX: S63.502A Unspecified sprain of left wrist, initial encounter (principal); S86.911A Strain of unspecified muscle(s) and tendon(s) at lower leg level, right leg, initial encounter; M25.532 Pain in left wrist; M79.10 Myalgia, unspecified site; W19.XXXA Unspecified fall, initial encounter; Y04.8XXA Assault by other bodily force, initial encounter; J44.9 Chronic obstructive pulmonary disease, unspecified; E11.9 Type 2 diabetes mellitus without complications
CPT/HCPCS: 99283

== ENCOUNTER 2019-04-25 11:18 | Emergency (ER) | payer MEDICARE ==
[2019-04-25] MEDS ORDERED: DEXTROSE 5%-1/2 NORMAL SALINE 1,000 ML IV ONE (11:48)
[2019-04-25 12:16] LABS: ABSOLUTE BASOPHILS # (AUTO) 0.1 10^3/uL (0.0-0.2); ABSOLUTE EOSINOPHILS # (AUTO) 0.1 10^3/uL (0.0-0.6); ABSOLUTE LYMPHOCYTES (AUTO) 1.9 10^3/uL (0.5-4.7); ABSOLUTE MONOCYTES (AUTO) 0.6 10^3/uL (0.1-1.4); ABSOLUTE NEUT (AUTO) 7.3 10^3/uL (1.7-8.2); BASOPHILS % (AUTO) 0.8 % (0-2); EOSINOPHILS % (AUTO) 0.7 % (0-6); HEMATOCRIT 44.3 % (36.0-47.0); HEMOGLOBIN 14.5 g/dL (12.0-15.5); LYMPHOCYTES % (AUTO) 19.3 % (13-45); MEAN CORPUSCULAR HEMOGLOBIN 31.4 pg (27.0-33.4); MEAN CORPUSCULAR HGB CONC 32.8 g/dL (32.0-36.0); MEAN CORPUSCULAR VOLUME 96 fl (80-97); MONOCYTES % (AUTO) 5.8 % (3-13); PLATELET COUNT 275 10^3/uL (150-450); RED BLOOD COUNT 4.63 10^6/uL (3.72-5.28); RED CELL DISTRIBUTION WIDTH 15.9 % (11.5-14.0); SEGMENTED NEUTROPHILS % (AUTO) 73.4 % (42-78); TOTAL CELLS COUNTED % (AUTO) 100 %
[2019-04-25 12:19] LABS: APPEARANCE,URINE CLEAR; BILIRUBIN,URINE NEGATIVE (NEGATIVE); COLOR,URINE STRAW; GLUCOSE, URINE NEGATIVE (NEGATIVE); KETONES,URINE NEGATIVE (NEGATIVE); LEUKOCYTE ESTERASE,URINE NEGATIVE (NEGATIVE); NITRITE,URINE NEGATIVE (NEGATIVE); PROTEIN,URINE NEGATIVE (NEGATIVE); URINE SPECIFIC GRAVITY 1.008; UROBILINOGEN,URINE NEGATIVE mg/dL (<2.0)
--- NOTE | 2019-04-25 12:24 | RADIOLOGY REPORT (SQ) ---
EXAM DESCRIPTION: CHEST SINGLE VIEW COMPLETED DATE/TIME: 04/25/2019 12:13 pm REASON FOR STUDY: Weakness and shortness of breath COMPARISON: 03/03/2019 EXAM PARAMETERS: NUMBER OF VIEWS: One view. TECHNIQUE: Single frontal radiographic view of the chest acquired. RADIATION DOSE: NA LIMITATIONS: None. FINDINGS: LUNGS AND PLEURA: Emphysematous change without focal consolidation, pleural effusion or pn eumothorax. MEDIASTINUM AND HILAR STRUCTURES: No masses. Contour normal. HEART AND VASCULAR STRUCTURES: Normal heart size. Ectatic unfolded atherosclerotic thoracic aorta. BONES: Osteopenia. No acute findings. HARDWARE: None in the chest. OTHER: No other significant finding. IMPRESSION: Emphysematous change without evidence of acute cardiopulmonary process. TECHNICAL DOCUMENTATION: JOB ID: [id number] [employer]- All Rights Reserved Reading location - IP/workstation name: [email or web address]
[2019-04-25 12:42] LABS: ALANINE AMINOTRANSFERASE 19 U/L (9-52); ALBUMIN 4.2 g/dL (3.5-5.0); ALKALINE PHOSPHATASE 101 U/L (38-126); ANION GAP 10 (5-19); ASPARTATE AMINO TRANSFERASE 22 U/L (14-36); BILIRUBIN,DIRECT 0.3 mg/dL (0.0-0.4); BILIRUBIN,TOTAL 0.5 mg/dL (0.2-1.3); BLOOD UREA NITROGEN 22 mg/dL (7-20); CALCIUM 9.5 mg/dL (8.4-10.2); CARBON DIOXIDE 25 mmol/L (22-30); CHLORIDE 104 mmol/L (98-107); CREATINE KINASE 25 U/L (30-135); GLUCOSE 233 mg/dL (75-110); POTASSIUM 3.7 mmol/L (3.6-5.0); TOTAL PROTEIN 7.7 g/dL (6.3-8.2)
[2019-04-25 12:53] LABS: CREATINE KINASE MB 0.62 ng/mL (<4.55)
[2019-04-25 12:54] LABS: TROPONIN I < 0.012 ng/mL
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
[2019-04-25 16:08] VITALS: BP 182/67
--- NOTE | 2019-04-26 20:05 | EKG REPORT ---
SEVERITY:- ABNORMAL ECG - SINUS TACHYCARDIA PROBABLE LVH WITH SECONDARY REPOL ABNRM : Confirmed by: Johana East MD 26-Apr-2019 20:04:46
== END 2019-04-25 17:20 | disposition home or self-care (01) ==
LOC: ER 11:18
DX: R53.1 Weakness (principal); R41.82 Altered mental status, unspecified; W18.30XA Fall on same level, unspecified, initial encounter; Z88.0 Allergy status to penicillin; Z96.651 Presence of right artificial knee joint
CPT/HCPCS: 36415; 51702; 71045; 80053; 81001; 82550; 82553; 82962; 84484; 85025; 87086; 87088; 87186; 93005; 93010; 96360; 96361; 99285

== ENCOUNTER 2019-05-18 20:51 | Emergency (ER) | payer MEDICARE, OTHER ==
--- NOTE | 2019-05-18 21:23 | ER Document Report ---
HPI - HPI Time Seen by Provider: 05/18/19 21:12 Pain Level: 3 Context: Is a 74-year-old female with a history of hypertension and an CA who presents to the emergency department after a fall. Patient states around 11 AM she was in the bathroom when her right leg gave out on her. Patient states she, lowered herself to the ground. Patient states that her came to her side but when he opened the door and it did scrape her right forearm. Patient denies blood thinners. Patient states she does walk with a cane due to right leg weakness. Patient states she has had multiple right knee replacements and sees [facility] pain management for her chronic right knee pain. Patient states she does take Percocet 7.5 mg 3 times a day as needed. Patient denies head injury or loss of consciousness after the fall. Patient states when she did lower herself to the ground she did fall on the vinyl kyree. Patient states she has been able to move her right wrist but does have some pain around the abrasions to the arm. Patient reports her tetanus shot is up-to-date. Patient denies head or neck pain. - REPRODUCTIVE Reproductive: DENIES: : Past Medical History - General Information source: Patient - Social History Smoking Status: Current Some Day Smoker Frequency of alcohol use: None Drug Abuse: None Lives with: Spouse/Significant other Family History: Reviewed & Not Pertinent - Past Medical History Cardiac Medical History: Reports: Hx Heart Attack - 2018, Hx Hypercholesterolemia Denies: Hx Coronary Artery Disease, Hx Hypertension Pulmonary Medical History: Reports: Hx COPD - DOES NOT USE INHALERS Denies: Hx Asthma, Hx Bronchitis, Hx Pneumonia EENT Medical History: Reports: None Neurological Medical History: Reports: None. Denies: Hx Cerebrovascular Accident, Hx Seizures Endocrine Medical History: Reports: Hx Diabetes Mellitus Type 2 Renal/ Medical History: Reports: None. Denies: Hx Peritoneal Dialysis Malignancy Medical History: Reports: None GI Medical History: Reports: None Musculoskeletal Medical History: Reports Hx Arthritis - RIGHT KNEE Skin Medical History: Reports None Psychiatric Medical History: Reports: None Traumatic Medical History: Reports: None Infectious Medical History: Reports: None Past Surgical History: Reports: Hx Appendectomy, Hx Orthopedic Surgery - R. knee replacement right wrist, Hx Tubal Ligation - Immunizations Hx Diphtheria, Pertussis, Tetanus Vaccination: Yes Hx Pneumococcal Vaccination: 07/17/12 Vertical Provider Document - CONSTITUTIONAL Agree With Documented VS: Yes Exam Limitations: No Limitations General Appearance: No Apparent Distress - INFECTION CONTROL TRAVEL OUTSIDE OF THE [place] IN LAST 30 DAYS: No - HEENT HEENT: Atraumatic, Normocephalic, PERRLA - NECK Neck: Normal Inspection - RESPIRATORY Respiratory: Breath Sounds Normal, No Respiratory Distress - CARDIOVASCULAR Cardiovascular: Regular Rate - GI/ABDOMEN Gastrointestinal: Abdomen Soft, Abdomen Non-Tender - MUSCULOSKELETAL/EXTREMETIES Notes: Superficial cut and abrasion to the right lateral aspect of the forearm with surrounding dried blood, no active bleeding, mild ecchymosis without edema. + strong brilliandeer lopper to right hand. No obvious deformity to the wrist, full ROM noted. Course - Re-evaluation Re-evalutation: 05/18/19 22:23 Patient had reported to the nurse that she was having urinary frequency and pain with urination. A urine specimen was obtained and patient does have a urinary tract infection. Patient initially tachycardic in triage but I was told by the nurse that she was upset about her injury and the fact that her would not bring her to the emergency department and that she had to take a cab. Patient is in no acute distress she is speaking in full complete sentences. At time of discharge patient is resting comfortably in a wheelchair, reading a magazine and denies pain at this time. Patient states that she will take a cab home. - Vital Signs Vital signs: Temp Pulse Resp BP Pulse Ox 98.0 F 120 H 22 H 169/84 H 93 05/18/19 20:58 05/18/19 20:58 05/18/19 20:58 05/18/19 20:58 05/18/19 20:58 - Laboratory Laboratory results interpreted by me: 05/18/19 22:19 Laboratory 05/18/19 21:35 Urine Color YELLOW Urine Appearance CLOUDY Urine pH 5.0 Ur Specific [place] 1.016 Urine Protein NEGATIVE Urine Glucose (UA) 150 H Urine Ketones NEGATIVE Urine Blood SMALL H Urine Nitrite POSITIVE H Urine Bilirubin NEGATIVE Urine Urobilinogen NEGATIVE Ur Leukocyte Esterase LARGE H Urine WBC (Auto) 153 Urine RBC (Auto) 3 Urine Bacteria (Auto) 3+ Urine WBC Clumps MOD Squamous Epi Cells Auto 3 Urine Ascorbic Acid NEGATIVE - Diagnostic Test Radiology reviewed: Reports reviewed Radiology results interpreted by me: 05/18/19 22:18 Forearm X-Ray 05/18/19 21:21 IMPRESSION: 1. No acute findings. Wrist X-Ray 05/18/19 21:21 IMPRESSION: 1. No acute findings. Discharge - Discharge Clinical Impression: UTI (urinary tract infection) Qualifiers: Urinary tract infection type: acute cystitis Hematuria presence: with hematuria Qualified Code(s): N30.01 - Acute cystitis with hematuria Condition: Stable Disposition: HOME, SELF-CARE Instructions: Nitrofurantoin ([facility]), Urinary Tract Infection ([facility]) Additional Instructions: Today you were seen in the emergency department after a fall. We did do an x- ray of the right wrist and forearm which did not show any fracture or dislocation. You have been diagnosed with a right arm contusion. Please keep your superficial abrasions clean and dry. Please monitor for signs and symptoms of infection to include redness and swelling. You do have a urinary tract infection. You are being prescribed an antibiotic called Macrobid. You are given your first dose of this while in the emergency department. Please return to the emergency department if you develop fever, chills, back pain around the kidney area, inability to urinate or obvious blood in the urine. Please call your primary care physician Dr. Cisneros on Tuesday to schedule a follow-up appointment. Urinary Tract Infection Your evaluation indicates that you have a urinary tract infection. This is due to germs growing in the bladder. This is a common problem. This infection usually responds quickly to antibiotics. Your antibiotic should be taken exactly as prescribed. Drink plenty of fluids -- three to four quarts a day. Occasionally, a bladder anesthetic will be prescribed to help stop the feeling of urgency until the antibiotic has a chance to clear the infection. This may cause your urine to be dark orange. Certain urine infections require a culture. If the doctor obtained a culture, the results will be back in two days. You should call to see if a change in treatment is needed. A repeat urinalysis after you finish treatment is often recommended. The physician will let you know if further testing is required. Call the doctor if you develop fever, chills, flank pain, inability to urinate, or blood in the urine. Prescriptions: Nitrofurantoin/Nitrofuran Mac [Macrobid 100 mg Capsule] 1 tab PO BID #10 capsule Referrals: RAJESH CISNEROS MD [Primary Care Provider] - Follow up as needed
[2019-05-18 21:55] LABS: APPEARANCE,URINE CLOUDY; BILIRUBIN,URINE NEGATIVE (NEGATIVE); COLOR,URINE YELLOW; GLUCOSE, URINE 150 mg/dL (NEGATIVE); KETONES,URINE NEGATIVE (NEGATIVE); LEUKOCYTE ESTERASE,URINE LARGE (NEGATIVE); NITRITE,URINE POSITIVE (NEGATIVE); PROTEIN,URINE NEGATIVE (NEGATIVE); URINE SPECIFIC GRAVITY 1.016; UROBILINOGEN,URINE NEGATIVE mg/dL (<2.0)
--- NOTE | 2019-05-18 22:09 | RADIOLOGY REPORT (SQ) ---
EXAM DESCRIPTION: Right forearm RadLex: XR FOREARM 2 VIEWS Views: 2 CLINICAL HISTORY: 74 years Female, fall, abrasion right forearm COMPARISON: None. FINDINGS: Negative for acute fracture, dislocation, or radiopaque foreign body. No lytic bone changes or periosteal reaction. There is a very slight proximal ulnar variance (chronic). No soft tissue air. IMPRESSION: 1. No acute findings.
--- NOTE | 2019-05-18 22:12 | RADIOLOGY REPORT (SQ) ---
EXAM DESCRIPTION: Right wrist x-ray, 3 views Views: 3 CLINICAL HISTORY: 74 years Female, fall, abrasion right forearm COMPARISON: None. FINDINGS: Negative for acute fracture, dislocation, or radiopaque foreign body. IMPRESSION: 1. No acute findings.
[2019-05-18] MEDS ORDERED: NITROFURANTOIN MONOHYD/M-CRYST 100 MG CAPSULE PO ONE (22:21)
[2019-05-18 22:35] VITALS: BP 152/66
== END 2019-05-18 22:35 | disposition home or self-care (01) ==
LOC: ER 20:51
DX: N30.01 Acute cystitis with hematuria (principal); S50.811A Abrasion of right forearm, initial encounter; M62.81 Muscle weakness (generalized); W18.30XA Fall on same level, unspecified, initial encounter; Y92.002 Bathroom of unspecified non-institutional (private) residence as the place of occurrence of the external cause; Z79.899 Other long term (current) drug therapy; F17.200 Nicotine dependence, unspecified, uncomplicated; I25.2 Old myocardial infarction; J44.9 Chronic obstructive pulmonary disease, unspecified; E11.9 Type 2 diabetes mellitus without complications
CPT/HCPCS: 99283; 87086; 87088; 81001; 87186; 73090; 73110; A9270; J8499

== ENCOUNTER 2019-06-28 07:58 | Observation (INO) | payer MEDICARE, OTHER ==
[2019-06-28] MEDS ORDERED: ASPIRIN 81 MG TABLET, CHEWABLE PO ONE (09:22)
--- NOTE | 2019-06-28 09:34 | EKG REPORT ---
SEVERITY:- NORMAL ECG - SINUS RHYTHM : Confirmed by: Johana East MD 28-Jun-2019 09:33:43
[2019-06-28 09:52] LABS: ABSOLUTE BASOPHILS # (AUTO) 0.1 10^3/uL (0.0-0.2); ABSOLUTE EOSINOPHILS # (AUTO) 0.1 10^3/uL (0.0-0.6); ABSOLUTE LYMPHOCYTES (AUTO) 1.8 10^3/uL (0.5-4.7); ABSOLUTE MONOCYTES (AUTO) 0.7 10^3/uL (0.1-1.4); ABSOLUTE NEUT (AUTO) 6.8 10^3/uL (1.7-8.2); BASOPHILS % (AUTO) 0.7 % (0-2); EOSINOPHILS % (AUTO) 1.4 % (0-6); HEMATOCRIT 42.5 % (36.0-47.0); HEMOGLOBIN 14.3 g/dL (12.0-15.5); LYMPHOCYTES % (AUTO) 19.1 % (13-45); MEAN CORPUSCULAR HEMOGLOBIN 31.6 pg (27.0-33.4); MEAN CORPUSCULAR HGB CONC 33.7 g/dL (32.0-36.0); MEAN CORPUSCULAR VOLUME 94 fl (80-97); MONOCYTES % (AUTO) 7.4 % (3-13); PLATELET COUNT 309 10^3/uL (150-450); RED BLOOD COUNT 4.53 10^6/uL (3.72-5.28); RED CELL DISTRIBUTION WIDTH 14.8 % (11.5-14.0); SEGMENTED NEUTROPHILS % (AUTO) 71.4 % (42-78); TOTAL CELLS COUNTED % (AUTO) 100 %; WHITE BLOOD COUNT 9.5 10^3/uL (4.0-10.5)
[2019-06-28 09:57] LABS: ALBUMIN 3.7 g/dL (3.5-5.0); ALKALINE PHOSPHATASE 91 U/L (38-126); ANION GAP 10 (5-19); ASPARTATE AMINO TRANSFERASE 18 U/L (14-36); BILIRUBIN,DIRECT 0.2 mg/dL (0.0-0.4); BILIRUBIN,TOTAL 0.7 mg/dL (0.2-1.3); BLOOD UREA NITROGEN 5 mg/dL (7-20); CALCIUM 9.2 mg/dL (8.4-10.2); CARBON DIOXIDE 22 mmol/L (22-30); CHLORIDE 105 mmol/L (98-107); CREATINE KINASE 38 U/L (30-135); GLUCOSE 150 mg/dL (75-110); POTASSIUM 3.7 mmol/L (3.6-5.0); TOTAL PROTEIN 6.5 g/dL (6.3-8.2)
[2019-06-28 10:09] LABS: CREATINE KINASE MB 0.72 ng/mL (<4.55); TROPONIN I < 0.012 ng/mL
[2019-06-28 10:16] LABS: APPEARANCE,URINE CLOUDY; BILIRUBIN,URINE NEGATIVE (NEGATIVE); COLOR,URINE YELLOW; GLUCOSE, URINE NEGATIVE (NEGATIVE); KETONES,URINE NEGATIVE (NEGATIVE); LEUKOCYTE ESTERASE,URINE LARGE (NEGATIVE); NITRITE,URINE NEGATIVE (NEGATIVE); PROTEIN,URINE NEGATIVE (NEGATIVE); URINE SPECIFIC GRAVITY 1.013; UROBILINOGEN,URINE NEGATIVE mg/dL (<2.0)
[2019-06-28 10:41] LABS: ADD MANUAL MICROSCOPIC YES
[2019-06-28 10:44] LABS: BACTERIA,URINE 4+ /HPF
--- NOTE | 2019-06-28 10:57 | ER Document Report ---
Entered by HEATH OWENS SCRIBE 06/28/19 0939 Acting as scribe for:JUANCARLOS EDWARDS MD ED Cardiac - General Chief Complaint: Chest Pain Stated Complaint: CHEST PAIN Time Seen by Provider: 06/28/19 09:28 Primary Care Provider: RAJESH CISNEROS MD [Primary Care Provider] - Follow up as needed Mode of Arrival: Ambulatory Information source: Patient Notes: Patient is a 74-year-old female who presents to the emergency department today with complaints of chest pain which began yesterday. Patient states the pain comes and goes. Patient states the pain began around midnight last night and lasted for 30 minutes. Patient states every couple of hours her pain begins and it lasts for around 30 minutes. Patient states she was diagnosed with an [place] on the January. She had a heart catheterization which showed no blocked arteries but did show "something wrong with my aortic valve". TRAVEL OUTSIDE OF THE [place] IN LAST 30 DAYS: No - Related Data Allergies/Adverse Reactions: Penicillins Allergy (Verified 06/28/19 08:00) Past Medical History - General Information source: Patient - Social History Smoking Status: Never Smoker Cigarette use (# per day): No Chew tobacco use (# tins/day): No Frequency of alcohol use: None Drug Abuse: None Lives with: Family Family History: Reviewed & Not Pertinent Patient has suicidal ideation: No Patient has homicidal ideation: No - Past Medical History Cardiac Medical History: Reports: Hx Heart Attack - 2018, Hx Hypercholesterolemia Pulmonary Medical History: Reports: Hx COPD - DOES NOT USE INHALERS Endocrine Medical History: Reports: Hx Diabetes Mellitus Type 2 Musculoskeletal Medical History: Reports Hx Arthritis - RIGHT KNEE Past Surgical History: Reports: Hx Appendectomy, Hx Orthopedic Surgery - R. knee replacement right wrist, Hx Tubal Ligation - Immunizations Hx Diphtheria, Pertussis, Tetanus Vaccination: Yes Hx Pneumococcal Vaccination: 07/17/12 Review of Systems - Review of Systems Constitutional: No symptoms reported EENT: No symptoms reported Cardiovascular: See HPI, Chest pain Respiratory: No symptoms reported Gastrointestinal: No symptoms reported Genitourinary: No symptoms reported Female Genitourinary: No symptoms reported Musculoskeletal: No symptoms reported Skin: No symptoms reported Hematologic/Lymphatic: No symptoms reported Neurological/Psychological: No symptoms reported -: Yes All other systems reviewed and negative Physical Exam - Vital signs Vitals: Temp Pulse Resp BP Pulse Ox 98.1 F 101 H 24 H 166/70 H 95 06/28/19 08:06 06/28/19 08:06 06/28/19 08:06 06/28/19 08:06 06/28/19 08:06 - Notes Notes: Physical Exam: General: Alert, appears well. HEENT: Normocephalic. Atraumatic. PERRL. Extraocular movements intact. Oropharynx clear. No carotid bruits. Poor dentition throughout. Neck: Supple. Non-tender. Respiratory: No respiratory distress. Inspiratory and expiratory wheezing bilaterally. Cardiovascular: Regular rate and rhythm. Abdominal: Normal Inspection. Non-tender. No distension. Normal Bowel Sounds. Back: No gross abnormalities. Extremities: Moves all four extremities. Upper extremities: Normal inspection. Normal ROM. Lower extremities: Normal inspection. No edema. Normal ROM. Neurological: Normal cognition. AAOx4. Normal speech. Psychological: Normal affect. Normal Mood. Skin: Warm. Dry. Normal color. Course - Re-evaluation Re-evalutation: 06/28/19 10:15 Patient is taking Xanax 1 mg 3 times daily, and Percocet 7.5 mg 3 times daily. She also takes Ambien 10 mg at bedtime. I suspect this may contribute to her falling down problems. - Vital Signs Vital signs: Temp Pulse Resp BP Pulse Ox 98.1 F 101 H 19 155/72 H 98 06/28/19 08:06 06/28/19 08:06 06/28/19 12:01 06/28/19 12:00 06/28/19 12:01 - Laboratory Result Diagrams: 06/28/19 09:16 06/28/19 09:16 Laboratory results interpreted by me: 06/28/19 06/28/19 06/28/19 09:16 09:16 09:45 RDW 14.8 H Sodium 136.8 L BUN 5 L Glucose 150 H Urine Blood SMALL H Ur Leukocyte Esterase LARGE H - EKG Interpretation by Me EKG shows normal: Sinus rhythm, [place], Intervals, QRS Complexes, ST-T Waves Rate: Normal - 99 Rhythm: NSR - Consults Dr Lares Time consulted: 13:13 Consulted provider: will come to ER Discharge - Discharge Clinical Impression: Elevated blood pressure reading without diagnosis of hypertension Chest pain Qualifiers: Chest pain type: unspecified Qualified Code(s): R07.9 - Chest pain, unspecified Condition: Stable Disposition: ADMITTED OBSERVATION Admitting Provider: Arnaud (Hospitalist) Unit Admitted: Telemetry Referrals: RAJESH CISNEROS MD [Primary Care Provider] - Follow up as needed Scribe Attestation: 06/28/19 13:24 I personally performed the services described in the documentation, reviewed and edited the documentation which was dictated to the scribe in my presence, and it accurately records my words and actions. I personally performed the services described in the documentation, reviewed and edited the documentation which was dictated to the scribe in my presence, and it accurately records my words and actions.
[2019-06-28] MEDS ORDERED: ONDANSETRON HCL INJ/PF 4 MG/2 ML SDV IV ONE (13:30)
--- NOTE | 2019-06-28 13:51 | RADIOLOGY REPORT (SQ) ---
EXAM DESCRIPTION: CHEST SINGLE VIEW COMPLETED DATE/TIME: 06/28/2019 1:37 pm REASON FOR STUDY: chest pain COMPARISON: 04/25/2019. EXAM PARAMETERS: NUMBER OF VIEWS: One view. TECHNIQUE: Single frontal radiographic view of the chest acquired. RADIATION DOSE: NA LIMITATIONS: None. FINDINGS: LUNGS AND PLEURA: No opacities, masses or pneumothorax. No pleural effusion. MEDIASTINUM AND HILAR STRUCTURES: No masses. Contour normal. HEART AND VASCULAR STRUCTURES: Heart normal in size. Normal vasculature. BONES: No acute findings. HARDWARE: None in the chest. OTHER: No other significant finding. IMPRESSION: NO ACUTE RADIOGRAPHIC FINDING IN THE CHEST. TECHNICAL DOCUMENTATION: JOB ID: [id number] [employer]- All Rights Reserved Reading location - IP/workstation name: [email or web address]
[2019-06-28] MEDS ORDERED: IPRATROPIUM/ALBUTEROL 0.5-2.5 MG/3 ML AMPUL NEB PRN (14:24)
[2019-06-28] MEDS ORDERED: ACETAMINOPHEN 325 MG TABLET PO PRN (14:24)
[2019-06-28] MEDS ORDERED: OXYCODONE-ACETAMINOPHEN 5-325 MG TABLET PO PRN (14:24)
[2019-06-28] MEDS ORDERED: MORPHINE SULFATE 10 MG/ML INJ IV PRN (14:31)
[2019-06-28] MEDS ORDERED: NITROGLYCERIN 0.4 MG/TAB 25 TAB/BOTTLE SL PRN (14:31)
--- NOTE | 2019-06-28 14:57 | PDOC H&P ---
History of Present Illness Admission Date/PCP: 06/28/19 13:50 RAJESH CISNEROS MD History of Present Illness: DEO ROBERTSON is a 74 year old female with past medical history of diabetes, gastroenteritis, osteoarthritis, depression, anxiety presented to ED complaining of chest pain x1 day and feeling sick to the stomach. Chest pain is substernal, sharp, radiating to the left arm, intermittent in nature, lasts about 30 minutes, no exacerbating or alleviating factors identified, associated with nausea. Also complaining of nonbloody diarrhea for the last 2 days, and urinary fequency and urgency. In 2018 patient presented to [facility] ED with mildly elevated troponin and T wave i nversion she was told that she had an AL and was transferred to [facility] where she was admitted and underwent left heart cath which according to the patient was negative. She is stating that she is very stressed because of her son who was admitted for pancreatitis here at [facility]. In ED EKG was unremarkable and troponins negative x2 however due to patient's high risk factor hospital was admitted for admission. On physical examination there is tenderness to palpation over the left chest and epigastric region. Past Medical History Cardiac Medical History: Reports: Myocardial Infarction - 2018, Hyperlipidema Denies: Coronary Artery Disease, Hypertension Pulmonary Medical History: Reports: Chronic Obstructive Pulmonary Disease (COPD) - DOES NOT USE INHALERS Denies: Asthma, Bronchitis, Pneumonia Neurological Medical History: Denies: Seizures Endocrine Medical History: Reports: Diabetes Mellitus Type 2 Musculoskeltal Medical History: Reports: Arthritis - RIGHT KNEE Hematology: Denies: Anemia Past Surgical History Past Surgical History: Reports: Appendectomy, Orthopedic Surgery - R. knee replacement right wrist, Tubal Ligation Social History Lives with: Family Smoking Status: Never Smoker Family History Family History: Reviewed & Not Pertinent Parental Family History Reviewed: Yes Children Family History Reviewed: Yes Sibling(s) Family History Reviewed.: Yes Medication/Allergy Home Medications: Alprazolam [Xanax] 1 mg PO TIDP PRN 06/28/19 Carvedilol [Coreg 3.125 mg Tablet] 3.125 mg PO BID 06/28/19 Divalproex Sodium 1,500 mg PO DAILY 06/28/19 Donepezil HCl [Aricept] 5 mg PO DAILY 06/28/19 Furosemide [Lasix 20 mg Tablet] 20 mg PO QAMP PRN 06/28/19 Metformin HCl [Metformin HCl ER] 1,000 mg PO BID 06/28/19 Oxycodone HCl/Acetaminophen [Percocet 7.5-325 mg Tablet] 1 each PO TIDP PRN 06/28/19 Sertraline HCl [Zoloft] 200 mg PO DAILY 06/28/19 Zolpidem Tartrate [Ambien] 15 mg PO QHS 06/28/19 Allergies/Adverse Reactions: Penicillins Allergy (Verified 06/28/19 08:00) Review of Systems Review of Systems: as per hpi Physical Exam Vital Signs: Temp Pulse Resp BP Pulse Ox 98.1 F 101 H 19 155/72 H 98 06/28/19 08:06 06/28/19 08:06 06/28/19 12:01 06/28/19 12:00 06/28/19 12:01 Intake & Output 06/27/19 06/28/19 06/29/19 06:59 06:59 06:59 Weight 50 kg General appearance: PRESENT: no acute distress, well-developed, well-nourished Neck exam: ABSENT: carotid bruit, JVD, lymphadenopathy, thyromegaly Respiratory exam: PRESENT: clear to auscultation parvez. ABSENT: rales, rhonchi, wheezes Cardiovascular exam: PRESENT: RRR. ABSENT: diastolic murmur, rubs, systolic murmur GI/Abdominal exam: PRESENT: normal bowel sounds, soft, tenderness - Epigastric.. ABSENT: distended, guarding, mass, organolmegaly, rebound Musculoskeletal exam: PRESENT: tenderness - Left upper lateral chest. Skin exam: PRESENT: dry, intact, warm. ABSENT: cyanosis, rash Results Laboratory Results: 06/28/19 09:16 06/28/19 09:16 06/28/19 06/28/19 06/28/19 09:16 09:16 09:45 WBC 9.5 RBC 4.53 Hgb 14.3 Hct 42.5 MCV 94 MCH 31.6 MCHC 33.7 RDW 14.8 H Plt Count 309 Seg Neutrophils % 71.4 Sodium 136.8 L Potassium 3.7 Chloride 105 Carbon Dioxide 22 Anion Gap 10 BUN 5 L Creatinine 0.57 Est GFR ( Amer) > 60 Glucose 150 H Calcium 9.2 Total Bilirubin 0.7 AST 18 Alkaline Phosphatase 91 Total Protein 6.5 Albumin 3.7 Urine Color YELLOW Urine Appearance CLOUDY Urine pH 6.0 Ur Specific [place] 1.013 Urine Protein NEGATIVE Urine Glucose (UA) NEGATIVE Urine Ketones NEGATIVE Urine Blood SMALL H Urine Nitrite NEGATIVE Ur Leukocyte Esterase LARGE H Ur Squamous Epith Cells TOO MANY TO COUNT 06/28/19 06/28/19 06/28/19 09:16 09:16 11:49 Creatine Kinase 38 30 CK-MB (CK-2) 0.72 Troponin I < 0.012 06/28/19 06/28/19 11:49 13:42 Creatine Kinase CK-MB (CK-2) Troponin I < 0.012 < 0.012 Impressions: Chest X-Ray 06/28/19 13:26 IMPRESSION: NO ACUTE RADIOGRAPHIC FINDING IN THE CHEST. Assessment and Plan - Diagnosis (1) Chest pain Qualifiers: Chest pain type: intercostal pain Qualified Code(s): R07.82 - Intercostal pain Is this a current diagnosis for this admission?: Yes Plan: Unlikely cardiac in origin. Likely musculoskeletal VS gastritis. She epigastric and left mid axillary tenderness to palpation. Troponin negative x2, EKG no changes. Admit to telemetry, antiplatelets, statins, beta-blockers, sublingual nitroglycerin, morphine, supplemental oxygen. Troponins. Admit for observation overnight. (2) Hypertension Qualifiers: Hypertension type: essential hypertension Qualified Code(s): I10 - Essential (primary) hypertension Is this a current diagnosis for this admission?: Yes Plan: Uncontrolled. Will start on beta-blockers, ISAIAH, PRN IV hydralazine. Outpatient PCP follow-up. Adjust meds as needed. (3) Diabetes Qualifiers: Diabetes mellitus type: type 2 Is this a current diagnosis for this admission?: Yes Plan: Controlled. Takes metformin at home. Hemoglobin A1c 6.1 on 12/24/2018. Diabetic diet, sliding scale, long-acting insulin, pre-meal insulin, Accu-Chek, hypoglycemia protocol. Adjust meds as needed. Restart home meds upon discharge. Outpatient PCP fol low-up. (4) Anxiety Is this a current diagnosis for this admission?: Yes Plan: Restart home meds. (5) GERD (gastroesophageal reflux disease) Qualifiers: Esophagitis presence: esophagitis presence not specified Qualified Code(s): K21.9 - Gastro-esophageal reflux disease without esophagitis Is this a current diagnosis for this admission?: Yes Plan: Chronic. H&H WNL. Denies any melena or hemoptysis. Continue PPIs. Outpatient PCP follow-up.
[2019-06-28] MEDS ORDERED: ALPRAZOLAM 0.5 MG TABLET PO PRN (15:09)
[2019-06-28] MEDS: ENOXAPARIN SODIUM INJ 40 MG/0.4 ML DISP.SYRIN SUBCUT SCH (15:36)
[2019-06-28] MEDS: DEXTROSE 5%-NORMAL SALINE 1,000 ML IV PRN (15:37)
[2019-06-28] MEDS: PANTOPRAZOLE SODIUM 40 MG TABLET.DR PO SCH (16:56)
[2019-06-28] MEDS: CARVEDILOL 3.125 MG TABLET PO SCH (18:03)
[2019-06-28] MEDS: DOCUSATE SODIUM 100 MG CAPSULE PO SCH (18:03)
[2019-06-28] MEDS: ATORVASTATIN CALCIUM 40 MG TABLET PO SCH (21:42)
[2019-06-28] MEDS: ZOLPIDEM TARTRATE 5 MG TABLET PO SCH (21:42)
[2019-06-28] MEDS ORDERED: METOPROLOL TARTRATE 25 MG TABLET PO SCH (22:00)
[2019-06-28] MEDS ORDERED: ZOLPIDEM TARTRATE 15 MG PO SCH (22:00)
[2019-06-29] MEDS ORDERED: DILTIAZEM HCL 60 MG TABLET PO ONE (02:00)
[2019-06-29] MEDS: DEXTROSE 5%-NORMAL SALINE 1,000 ML IV PRN ×2 (02:42→20:29)
[2019-06-29] MEDS: PANTOPRAZOLE SODIUM 40 MG TABLET.DR PO SCH ×2 (05:23→17:33)
[2019-06-29 08:16] LABS: ABSOLUTE EOSINOPHILS # (AUTO) 0.1 10^3/uL (0.0-0.6); ABSOLUTE LYMPHOCYTES (AUTO) 1.5 10^3/uL (0.5-4.7); ABSOLUTE MONOCYTES (AUTO) 1.1 10^3/uL (0.1-1.4); BASOPHILS % (AUTO) 0.2 % (0-2); EOSINOPHILS % (AUTO) 0.7 % (0-6); LYMPHOCYTES % (AUTO) 12.9 % (13-45); MEAN CORPUSCULAR HEMOGLOBIN 31.1 pg (27.0-33.4); MEAN CORPUSCULAR HGB CONC 32.5 g/dL (32.0-36.0); MEAN CORPUSCULAR VOLUME 96 fl (80-97); MONOCYTES % (AUTO) 9.1 % (3-13); PLATELET COUNT 244 10^3/uL (150-450); RED BLOOD COUNT 3.65 10^6/uL (3.72-5.28); RED CELL DISTRIBUTION WIDTH 14.9 % (11.5-14.0); SEGMENTED NEUTROPHILS % (AUTO) 77.1 % (42-78); TOTAL CELLS COUNTED % (AUTO) 100 %; WHITE BLOOD COUNT 11.7 10^3/uL (4.0-10.5)
[2019-06-29 08:17] LABS: INTERNATIONAL RATION (INR) 0.98
[2019-06-29 08:19] LABS: HEMOGLOBIN 11.4 g/dL (12.0-15.5)
[2019-06-29 08:42] LABS: ALBUMIN 2.8 g/dL (3.5-5.0); ALKALINE PHOSPHATASE 63 U/L (38-126); ANION GAP 7 (5-19); ASPARTATE AMINO TRANSFERASE 14 U/L (14-36); BILIRUBIN,DIRECT 0.1 mg/dL (0.0-0.4); BILIRUBIN,TOTAL 0.6 mg/dL (0.2-1.3); BLOOD UREA NITROGEN 5 mg/dL (7-20); CALCIUM 8.4 mg/dL (8.4-10.2); CARBON DIOXIDE 21 mmol/L (22-30); CHLORIDE 107 mmol/L (98-107); GLUCOSE 145 mg/dL (75-110); POTASSIUM 3.2 mmol/L (3.6-5.0); TOTAL PROTEIN 5.3 g/dL (6.3-8.2)
--- NOTE | 2019-06-29 08:53 | EKG REPORT ---
SEVERITY:- ABNORMAL ECG - SINUS RHYTHM NONSPECIFIC T ABNORMALITIES, LATERAL LEADS : Confirmed by: Johana East MD 29-Jun-2019 08:52:34
[2019-06-29] MEDS ORDERED: MAGNESIUM SULFATE/D5W 1 GM/100 ML RTUPB IV ONE (09:12)
[2019-06-29] MEDS ORDERED: POTASSIUM CHLORIDE 10 MEQ CAPSULE.ER PO ONE (09:12)
[2019-06-29] MEDS ORDERED: (PENDING PHARMACY ID) (Sertraline Hcl [Zoloft] 200 MG) PO SCH (10:00)
[2019-06-29] MEDS ORDERED: DIVALPROEX SODIUM 1500 MG PO SCH (10:00)
[2019-06-29] MEDS: CARVEDILOL 3.125 MG TABLET PO SCH (10:18)
[2019-06-29] MEDS: DIVALPROEX SODIUM 500 MG TAB.SR.24H PO SCH (10:18)
[2019-06-29] MEDS: DOCUSATE SODIUM 100 MG CAPSULE PO SCH ×2 (10:19→17:33)
[2019-06-29] MEDS: DONEPEZIL HCL 5 MG TABLET PO SCH (10:19)
[2019-06-29] MEDS: SULFAMETHOXAZOLE/TRIMETHOPRIM 800-160 MG TABLET PO SCH ×2 (10:19→17:33)
[2019-06-29] MEDS: SERTRALINE HCL 50 MG TABLET PO SCH (10:19)
[2019-06-29] MEDS: ENOXAPARIN SODIUM INJ 40 MG/0.4 ML DISP.SYRIN SUBCUT SCH (10:20)
[2019-06-29] MEDS: ONDANSETRON HCL INJ/PF 4 MG/2 ML SDV IV PRN (11:26)
[2019-06-29] MEDS: PROMETHAZINE HCL INJ 25 MG/1 ML VIAL IV PRN (12:11)
[2019-06-29] MEDS ORDERED: CARVEDILOL 12.5 MG TABLET PO ONE (13:50)
[2019-06-29] MEDS ORDERED: CARVEDILOL 6.25 MG TABLET PO ONE (14:15)
[2019-06-29 14:58] LABS: HEMATOCRIT 37.8 % (36.0-47.0); HEMOGLOBIN 12.4 g/dL (12.0-15.5); MEAN CORPUSCULAR HEMOGLOBIN 31.2 pg (27.0-33.4); MEAN CORPUSCULAR HGB CONC 32.8 g/dL (32.0-36.0); MEAN CORPUSCULAR VOLUME 95 fl (80-97); PLATELET COUNT 237 10^3/uL (150-450); RED BLOOD COUNT 3.96 10^6/uL (3.72-5.28); RED CELL DISTRIBUTION WIDTH 14.8 % (11.5-14.0); WHITE BLOOD COUNT 13.3 10^3/uL (4.0-10.5)
[2019-06-29 15:17] LABS: ALKALINE PHOSPHATASE 68 U/L (38-126); ANION GAP 7 (5-19); ASPARTATE AMINO TRANSFERASE 12 U/L (14-36); BILIRUBIN,DIRECT 0.1 mg/dL (0.0-0.4); BILIRUBIN,TOTAL 0.4 mg/dL (0.2-1.3); BLOOD UREA NITROGEN 5 mg/dL (7-20); CALCIUM 8.5 mg/dL (8.4-10.2); CARBON DIOXIDE 20 mmol/L (22-30); CHLORIDE 110 mmol/L (98-107); GLUCOSE 119 mg/dL (75-110); TOTAL PROTEIN 5.5 g/dL (6.3-8.2)
[2019-06-29 15:27] LABS: POTASSIUM 4.2 mmol/L (3.6-5.0)
[2019-06-29] MEDS ORDERED: CARVEDILOL 3.125 MG TABLET PO SCH (18:00)
--- NOTE | 2019-06-29 18:01 | PDOC PROGRESS REPORT ---
Subjective Progress Note for:: 06/29/19 Subjective:: DEO ROBERTSON is a 74 year old female with past medical history of diabetes, gastroenteritis, osteoarthritis, depression, anxiety presented to ED complaining of chest pain x1 day and feeling sick to the stomach. Chest pain is substernal, sharp, radiating to the left arm, intermittent in nature, lasts about 30 minutes, no exacerbating or alleviating factors ident ified, associated with nausea. Also complaining of nonbloody diarrhea for the last 2 days, and urinary fequency and urgency. In 2018 patient presented to [facility] ED with mildly elevated troponin and T wave inversion she was told that she had an WV and was transferred to [facility] where she was admitted and underwent left heart cath which according to the patient was negative. She is stating that she is very stressed because of her son who was admitted for pancreatitis here at [facility]. In ED EKG was unremarkable and troponins negative x2 however due to patient's high risk factor hospital was admitted for admission. On physical examination there is tenderness to palpation over the left chest and epigastric region. 06/29/2019. Chest pain has improved, complaining of being anxious, denies any fever, chills, nausea, vomiting, diarrhea, constipation or any urinary symptoms. Troponin has been negative however patient has leukocytosis with positive UA. Reason For Visit: CHEST PAIN Physical Exam Vital Signs: Temp Pulse Resp BP Pulse Ox 98.4 F 82 18 127/46 H 94 06/29/19 16:00 06/29/19 16:00 06/29/19 16:00 06/29/19 16:00 06/29/19 16:00 Intake & Output 06/28/19 06/29/19 06/30/19 06:59 06:59 06:59 Intake Total 1147 100 Balance 1147 100 Weight 51.3 kg General appearance: PRESENT: no acute distress, well-developed, well-nourished Head exam: PRESENT: atraumatic, normocephalic Eye exam: PRESENT: conjunctiva pink, EOMI, PERRLA. ABSENT: scleral icterus Ear exam: PRESENT: normal external ear exam Mouth exam: PRESENT: moist, tongue midline Neck exam: ABSENT: carotid bruit, JVD, lymphadenopathy, thyromegaly Respiratory exam: PRESENT: clear to auscultation parvez. ABSENT: rales, rhonchi, wheezes Cardiovascular exam: PRESENT: RRR. ABSENT: diastolic murmur, rubs, systolic murmur Pulses: PRESENT: normal dorsalis pedis pul Vascular exam: PRESENT: normal capillary refill GI/Abdominal exam: PRESENT: normal bowel sounds, soft. ABSENT: distended, guarding, mass, organolmegaly, rebound, tenderness Rectal exam: PRESENT: deferred Extremities exam: PRESENT: full ROM. ABSENT: calf tenderness, clubbing, pedal edema Neurological exam: PRESENT: alert, awake, oriented to person, oriented to place, oriented to time, oriented to situation, CN II-XII grossly intact. ABSENT: motor sensory deficit Psychiatric exam: PRESENT: appropriate affect, normal mood. ABSENT: homicidal ideation, suicidal ideation Skin exam: PRESENT: dry, intact, warm. ABSENT: cyanosis, rash Results Laboratory Results: 06/29/19 14:40 06/29/19 14:40 06/29/19 06/29/19 06/29/19 07:35 07:35 14:40 WBC 11.7 H 13.3 H RBC 3.65 L 3.96 Hgb 11.4 L D 12.4 Hct 35.0 L 37.8 MCV 96 95 MCH 31.1 31.2 MCHC 32.5 32.8 RDW 14.9 H 14.8 H Plt Count 244 237 Seg Neutrophils % 77.1 Sodium 135.2 L Potassium 3.2 L Chloride 107 Carbon Dioxide 21 L Anion Gap 7 BUN 5 L Creatinine 0.54 Est GFR ( Amer) > 60 Glucose 145 H Calcium 8.4 Total Bilirubin 0.6 AST 14 Alkaline Phosphatase 63 Total Protein 5.3 L Albumin 2.8 L 06/29/19 14:40 WBC RBC Hgb Hct MCV MCH MCHC RDW Plt Count Seg Neutrophils % Sodium 137.0 Potassium 4.2 D Chloride 110 H Carbon Dioxide 20 L Anion Gap 7 BUN 5 L Creatinine 0.58 Est GFR ( Amer) > 60 Glucose 119 H Calcium 8.5 Total Bilirubin 0.4 AST 12 L Alkaline Phosphatase 68 Total Protein 5.5 L Albumin 3.0 L 06/28/19 06/28/19 06/28/19 09:16 09:16 11:49 Creatine Kinase 38 30 CK-MB (CK-2) 0.72 Troponin I < 0.012 09/10/0406/28/19 06/28/19 11:49 13:42 18:10 Creatine Kinase CK-MB (CK-2) Troponin I < 0.012 < 0.012 < 0.012 06/29/19 00:44 Creatine Kinase CK-MB (CK-2) Troponin I < 0.012 Impressions: Chest X-Ray 06/28/19 13:26 IMPRESSION: NO ACUTE RADIOGRAPHIC FINDING IN THE CHEST. Assessment and Plan - Diagnosis (1) UTI (urinary tract infection) Is this a current diagnosis for this admission?: Yes Plan: Due to gram-negative rods E. coli. Pending urine culture. Day 1 Bactrim. Follow-up culture. (2) Hypertension Qualifiers: Hypertension type: essential hypertension Qualified Code(s): I10 - Ess ential (primary) hypertension Is this a current diagnosis for this admission?: Yes Plan: Not optimized. Increase Coreg to 6.25 twice daily, continue ISAIAH and PRN IV hydralazine. Outpatient PCP follow-up. (3) Chest pain Qualifiers: Chest pain type: intercostal pain Qualified Code(s): R07.82 - Intercostal pain Is this a current diagnosis for this admission?: Yes Plan: Resolved. Unlikely cardiac in origin. Likely musculoskeletal VS gastritis. She epigastric and left mid axillary tenderness to palpation. Troponin negative x3, EKG no changes. Continue telemetry, antiplatelets, statins, beta-blockers, sublingual nitroglycerin, morphine, supplemental oxygen. (4) Diabetes Qualifiers: Diabetes mellitus type: type 2 Is this a current diagnosis for this admission?: Yes Plan: Controlled. Takes metformin at home. Hemoglobin A1c 6.1 on 12/24/2018. Diabetic diet, sliding scale, long-acting insulin, pre-meal insulin, Accu-Chek, hypoglycemia protocol. Adjust meds as needed. Restart home meds upon discharge. Outpatient PCP follow-up. (5) Anxiety Is this a current diagnosis for this admission?: Yes Plan: Restart home meds. (6) GERD (gastroesophageal reflux disease) Qualifiers: Esophagitis presence: esophagitis presence not specified Qualified Code(s): K21.9 - Gastro-esophageal reflux disease without esophagitis Is this a current diagnosis for this admission?: Yes Plan: Chronic. H&H WNL. Denies any melena or hemoptysis. Continue PPIs. Outpatient PCP follow-up.
[2019-06-29] MEDS: ATORVASTATIN CALCIUM 40 MG TABLET PO SCH (21:33)
[2019-06-29] MEDS: ZOLPIDEM TARTRATE 5 MG TABLET PO SCH (21:33)
[2019-06-30 05:09] LABS: ABSOLUTE EOSINOPHILS # (AUTO) 0.3 10^3/uL (0.0-0.6); ABSOLUTE LYMPHOCYTES (AUTO) 1.7 10^3/uL (0.5-4.7); ABSOLUTE MONOCYTES (AUTO) 0.9 10^3/uL (0.1-1.4); ABSOLUTE NEUT (AUTO) 8.4 10^3/uL (1.7-8.2); BASOPHILS % (AUTO) 0.4 % (0-2); EOSINOPHILS % (AUTO) 2.5 % (0-6); HEMATOCRIT 36.4 % (36.0-47.0); HEMOGLOBIN 11.8 g/dL (12.0-15.5); LYMPHOCYTES % (AUTO) 15.2 % (13-45); MEAN CORPUSCULAR HGB CONC 32.5 g/dL (32.0-36.0); MEAN CORPUSCULAR VOLUME 95 fl (80-97); MONOCYTES % (AUTO) 8.1 % (3-13); PLATELET COUNT 223 10^3/uL (150-450); RED BLOOD COUNT 3.81 10^6/uL (3.72-5.28); RED CELL DISTRIBUTION WIDTH 15.1 % (11.5-14.0); SEGMENTED NEUTROPHILS % (AUTO) 73.8 % (42-78); TOTAL CELLS COUNTED % (AUTO) 100 %; WHITE BLOOD COUNT 11.4 10^3/uL (4.0-10.5)
[2019-06-30 05:25] LABS: ALBUMIN 2.7 g/dL (3.5-5.0); ALKALINE PHOSPHATASE 61 U/L (38-126); ANION GAP 5 (5-19); ASPARTATE AMINO TRANSFERASE 12 U/L (14-36); BILIRUBIN,DIRECT 0.1 mg/dL (0.0-0.4); BILIRUBIN,TOTAL 0.4 mg/dL (0.2-1.3); BLOOD UREA NITROGEN 7 mg/dL (7-20); CALCIUM 8.3 mg/dL (8.4-10.2); CARBON DIOXIDE 20 mmol/L (22-30); CHLORIDE 112 mmol/L (98-107); GLUCOSE 113 mg/dL (75-110); POTASSIUM 4.2 mmol/L (3.6-5.0); TOTAL PROTEIN 5.3 g/dL (6.3-8.2)
[2019-06-30] MEDS: PANTOPRAZOLE SODIUM 40 MG TABLET.DR PO SCH (06:07)
[2019-06-30] MEDS: ENOXAPARIN SODIUM INJ 40 MG/0.4 ML DISP.SYRIN SUBCUT SCH (09:02)
[2019-06-30] MEDS: SERTRALINE HCL 50 MG TABLET PO SCH (09:02)
[2019-06-30] MEDS: DIVALPROEX SODIUM 500 MG TAB.SR.24H PO SCH (09:03)
[2019-06-30] MEDS: DONEPEZIL HCL 5 MG TABLET PO SCH (09:03)
[2019-06-30] MEDS: SULFAMETHOXAZOLE/TRIMETHOPRIM 800-160 MG TABLET PO SCH (09:04)
[2019-06-30] MEDS: DOCUSATE SODIUM 100 MG CAPSULE PO SCH (09:04)
[2019-06-30] MEDS: PROMETHAZINE HCL INJ 25 MG/1 ML VIAL IV PRN (11:27)
[2019-06-30] MEDS: ONDANSETRON HCL INJ/PF 4 MG/2 ML SDV IV PRN (12:41)
[2019-06-30 13:19] VITALS: BP 136/65
[2019-06-30] MEDS ORDERED: CARVEDILOL 6.25 MG TABLET PO SCH (22:00)
--- NOTE | 2019-07-05 12:00 | PDOC DISCHARGE SUMMARY ---
General - Admit/Disc Date/PCP Admission Date/Primary Care Provider: 06/28/19 13:50 RAJESH CISNEROS MD Discharge Date: 06/30/19 - Discharge Diagnosis (1) UTI (urinary tract infection) Is this a current diagnosis for this admission?: Yes (2) Hypertension Is this a current diagnosis for this admission?: Yes (3) Chest pain Is this a current diagnosis for this admission?: Yes (4) Diabetes Is this a current diagnosis for this admission?: Yes (5) Anxiety Is this a current diagnosis for this admission?: Yes (6) GERD (gastroesophageal reflux disease) Is this a current diagnosis for this admission?: Yes - Additional Information Resuscitation Status: Full Code Discharge Diet: As Tolerated Discharge Activity: Activity As Tolerated Prescriptions: Sulfamethoxazole/Trimethoprim [Bactrim Ds Tablet] 1 each PO BID 4 Days #8 tablet Pantoprazole Sodium 40 mg PO DAILY 30 Days #30 tablet.dr Hui Medications: Alprazolam [Xanax] 1 mg PO TIDP PRN 06/28/19 Carvedilol [Coreg 3.125 mg Tablet] 3.125 mg PO BID 06/28/19 Divalproex Sodium 1,500 mg PO DAILY 06/28/19 Donepezil HCl [Aricept] 5 mg PO DAILY 06/28/19 Furosemide [Lasix 20 mg Tablet] 20 mg PO QAMP PRN 06/28/19 Metformin HCl [Metformin HCl ER] 1,000 mg PO BID 06/28/19 Oxycodone HCl/Acetaminophen [Percocet 7.5-325 mg Tablet] 1 each PO TIDP PRN 06/28/19 Sertraline HCl [Zoloft] 200 mg PO DAILY 06/28/19 Zolpidem Tartrate [Ambien] 15 mg PO QHS 06/28/19 Sulfamethoxazole/Trimethoprim [Bactrim Ds Tablet] 1 each PO BID 4 Days #8 tablet 06/29/19 Pantoprazole Sodium 40 mg PO DAILY 30 Days #30 tablet. 06/30/19 History of Present Illness History of Present Illness: DEO ROBERTSON is a 74 year old female with past medical history of diabetes, gastroenteritis, osteoarthritis, depression, anxiety presented to ED complaining of chest pain x1 day and feeling sick to the stomach. Chest pain is substernal, sharp, radiating to the left arm, intermittent in nature, lasts about 30 minutes, no exacerbating or alleviating factors identified, associated with nausea. Also complaining of nonbloody diarrhea for the last 2 days, and urinary fequency and urgency. In 2018 patient presented to [facility] with mildly elevated troponin and T wave inversion she was told that she had an NV and was transferred to [facility] where she was admitted and underwent left heart cath which according to the patient was negative. She is stating that she is very stressed because of her son who was admitted for pancreatitis here at [facility]. In ED EKG was unremarkable and troponins negative x2 however due to patient's high risk factor hospital was admitted for admission. On physical examination there is tenderness to palpation over the left chest and epigastric region. Hospital Course Hospital Course: (1) UTI (urinary tract infection) Due to gram-negative rods E. coli. Pending urine culture at the time of discharge Was discharged on Bactrim, however urine cultures came back positive for two strains of E.coli, one of them resistant to Bactrim. PCP was notified and results faxed. (2) Hypertension Normotensive and euvolomic. Discharged on home meds. Was started on home meds and PRN IV hydralazine. Outpatient PCP follow-up. (3) Chest pain Resolved. Unlikely cardiac in origin. Likely musculoskeletal VS gastritis. She had epigastric and left mid axillary tenderness to palpation. Troponin negative x3, EKG no changes. admitted to telemetry, started on antiplatelets, statins, beta-blockers, sublingual nitroglycerin, morphine, supplemental oxygen. (4) Diabetes Controlled. Takes metformin at home. Hemoglobin A1c 6.1 on 12/24/2018. Diabetic diet, sliding scale, long-acting insulin, pre-meal insulin, Accu-Chek, hypoglycemia protocol. Restarted home meds upon discharge. Outpatient PCP follow-up. (5) Anxiety Restart home meds. (6) GERD (gastroesophageal reflux disease) Chronic. H&H WNL. Denies any melena or hemoptysis. Continued PPIs. Outpatient PCP follow-up. Physical Exam Vital Signs: Temp Pulse Resp BP Pulse Ox 98.0 F 88 21 H 136/65 H 95 06/30/19 12:37 06/30/19 12:37 06/30/19 12:37 06/30/19 13:19 06/30/19 12:37 General appearance: PRESENT: no acute distress, well-developed, well-nourished Head exam: PRESENT: atraumatic, normocephalic Eye exam: PRESENT: conjunctiva pink, EOMI, PERRLA. ABSENT: scleral icterus Ear exam: PRESENT: normal external ear exam Mouth exam: PRESENT: moist, tongue midline Neck exam: ABSENT: carotid bruit, JVD, lymphadenopathy, thyromegaly Respiratory exam: PRESENT: clear to auscultation parvez. ABSENT: rales, rhonchi, wheezes Cardiovascular exam: PRESENT: RRR. ABSENT: diastolic murmur, rubs, systolic murmur Pulses: PRESENT: normal dorsalis pedis pul Vascular exam: PRESENT: normal capillary refill GI/Abdominal exam: PRESENT: normal bowel sounds, soft. ABSENT: distended, guarding, mass, organolmegaly, rebound Rectal exam: PRESENT: deferred Extremities exam: PRESENT: full ROM. ABSENT: calf tenderness, clubbing, pedal edema Neurological exam: PRESENT: alert, awake, oriented to person, oriented to place, oriented to time, oriented to situation, CN II-XII grossly intact. ABSENT: motor sensory deficit Psychiatric exam: PRESENT: appropriate affect, normal mood. ABSENT: homicidal ideation, suicidal ideation Skin exam: PRESENT: dry, intact, warm. ABSENT: cyanosis, rash Results Laboratory Results: 06/30/19 04:53 06/30/19 04:53 06/28/19 06/28/19 06/28/19 09:16 09:16 11:49 Creatine Kinase 38 30 CK-MB (CK-2) 0.72 Troponin I < 0.012 06/28/19 06/28/19 06/28/19 11:49 13:42 18:10 Creatine Kinase CK-MB (CK-2) Troponin I < 0.012 < 0.012 < 0.012 06/29/19 00:44 Creatine Kinase CK-MB (CK-2) Troponin I < 0.012 Impressions: Chest X-Ray 06/28/19 13:26 IMPRESSION: NO ACUTE RADIOGRAPHIC FINDING IN THE CHEST. Qualifiers - * PATIENT BEING DISCHARGED WITH ANY OF THE FOLLOWING DIAGNOSIS: No VTE patient discharged on overlapping Therapy?: No Acute Heart Failure - Is this a Heart Failure Patient?: No
== END 2019-06-30 14:11 | disposition home health service (06) ==
LOC: ER 07:58 → INTOOBSV 13:50 → EH 13:50 → 4W 17:43 → 5 06-29 18:57
PROVIDERS: ADMIT Internal Medicine; ATTEND Internal Medicine
DX: N39.0 Urinary tract infection, site not specified (principal); B96.29 Other Escherichia coli [E. coli] as the cause of diseases classified elsewhere; Z16.29 Resistance to other single specified antibiotic; I10 Essential (primary) hypertension; R07.2 Precordial pain; E11.9 Type 2 diabetes mellitus without complications; F41.9 Anxiety disorder, unspecified; K21.9 Gastro-esophageal reflux disease without esophagitis; R19.7 Diarrhea, unspecified; Z79.899 Other long term (current) drug therapy; F32.9 Major depressive disorder, single episode, unspecified; M19.90 Unspecified osteoarthritis, unspecified site; J44.9 Chronic obstructive pulmonary disease, unspecified; R07.82 Intercostal pain; I25.2 Old myocardial infarction; Z79.891 Long term (current) use of opiate analgesic; Z73.3 Stress, not elsewhere classified; Z79.84 Long term (current) use of oral hypoglycemic drugs; Z90.49 Acquired absence of other specified parts of digestive tract; Z88.0 Allergy status to penicillin; Z91.81 History of falling
CPT/HCPCS: 93005 ×2; 99285; 96372; 96374; 36415 ×3; 87086; 82553; 82962; 82550; 83690; 83735; 85025 ×3; 85610; 87070; 87088; 80053 ×3; 81001; 84484 ×2; 87186; 71045; 93010 ×2; G0378 ×4; A9270 ×20; J1650 ×3; J3475; J2550 ×2; J2405 ×3; J7042 ×2; J3490 ×3

== ENCOUNTER 2019-12-18 10:38 | Inpatient (IN) | payer MEDICARE, OTHER ==
[2019-12-18 11:20] LABS: ABSOLUTE EOSINOPHILS # (AUTO) 0.2 10^3/uL (0.0-0.6); ABSOLUTE LYMPHOCYTES (AUTO) 2.8 10^3/uL (0.5-4.7); ABSOLUTE MONOCYTES (AUTO) 0.5 10^3/uL (0.1-1.4); ABSOLUTE NEUT (AUTO) 4.9 10^3/uL (1.7-8.2); BASOPHILS % (AUTO) 0.5 % (0-2); EOSINOPHILS % (AUTO) 2.1 % (0-6); HEMATOCRIT 42.3 % (36.0-47.0); HEMOGLOBIN 14.1 g/dL (12.0-15.5); LYMPHOCYTES % (AUTO) 33.4 % (13-45); MEAN CORPUSCULAR HEMOGLOBIN 31.7 pg (27.0-33.4); MEAN CORPUSCULAR HGB CONC 33.3 g/dL (32.0-36.0); MEAN CORPUSCULAR VOLUME 95 fl (80-97); MONOCYTES % (AUTO) 5.8 % (3-13); PLATELET COUNT 337 10^3/uL (150-450); RED BLOOD COUNT 4.45 10^6/uL (3.72-5.28); SEGMENTED NEUTROPHILS % (AUTO) 58.2 % (42-78); TOTAL CELLS COUNTED % (AUTO) 100 %; WHITE BLOOD COUNT 8.5 10^3/uL (4.0-10.5)
[2019-12-18 11:27] LABS: INTERNATIONAL RATION (INR) 0.86; PROTHROMBIN TIME 11.7 SEC (11.4-15.4)
[2019-12-18 11:40] LABS: ALKALINE PHOSPHATASE 85 U/L (38-126); ANION GAP 10 (5-19); ASPARTATE AMINO TRANSFERASE 20 U/L (14-36); BILIRUBIN,TOTAL 0.5 mg/dL (0.2-1.3); BLOOD UREA NITROGEN 11 mg/dL (7-20); CALCIUM 9.4 mg/dL (8.4-10.2); CARBON DIOXIDE 21 mmol/L (22-30); CHLORIDE 102 mmol/L (98-107); GLUCOSE 224 mg/dL (75-110); POTASSIUM 4.3 mmol/L (3.6-5.0); TOTAL PROTEIN 7.1 g/dL (6.3-8.2)
[2019-12-18 11:55] LABS: VENOUS BLOOD BASE EXCESS -3.3 mmol/L; VENOUS BLOOD HCO3 22.3 mmol/L (20-32); VENOUS BLOOD PCO2 42.2 mmHg (35-63); VENOUS BLOOD PH 7.34 (7.30-7.42)
--- NOTE | 2019-12-18 12:21 | EKG REPORT ---
SEVERITY:- ABNORMAL ECG - SINUS RHYTHM FIRST DEGREE AV BLOCK CONSIDER LEFT VENTRICULAR HYPERTROPHY BORDERLINE T ABNORMALITIES, INFERIOR LEADS BORDERLINE PROLONGED QT INTERVAL : Confirmed by: Thiago Gomez MD 18-Dec-2019 12:20:31
--- NOTE | 2019-12-18 12:37 | ER Document Report ---
Entered by HEATH OWENS SCRIBE 12/18/19 1212 Acting as scribe for:JUANCARLOS EDWARDS MD ED GI/ - General Chief Complaint: Nausea/Vomiting Stated Complaint: NAUSEA/VOMITING Time Seen by Provider: 12/18/19 12:06 Primary Care Provider: RAJESH CISNEROS MD [Primary Care Provider] - Follow up as needed Mode of Arrival: Medic Information source: Patient, [facility] Records Cannot obtain history due to: Other - poor historian Notes: This 74-year-old female patient presents to the emergency department today with complaints of nausea, vomiting, and a cough. According to nursing notes, the patient usually resides at home with her son and but her is currently out of town. Son reported to nursing staff that he has "been trying to get the patient into a [facility] for the last x3 weeks". Patient is a poor historian so history is limited. TRAVEL OUTSIDE OF THE [place] IN LAST 30 DAYS: No - Related Data Allergies/Adverse Reactions: Penicillins Allergy (Verified 06/28/19 08:00) Past Medical History - General Information source: [facility], [facility] Records Cannot obtain history due to: Other - poor historian - Social History Smoking Status: Current Every Day Smoker Cigarette use (# per day): Yes Frequency of alcohol use: None Drug Abuse: None Lives with: Family Family History: Reviewed & Not Pertinent Patient has suicidal ideation: No Patient has homicidal ideation: No - Past Medical History Cardiac Medical History: Reports: Hx Heart Attack - 2018, Hx Hypercholesterolemia Pulmonary Medical History: Reports: Hx COPD - DOES NOT USE INHALERS Endocrine Medical History: Reports: Hx Diabetes Mellitus Type 2 Musculoskeletal Medical History: Reports Hx Arthritis - RIGHT KNEE Past Surgical History: Reports: Hx Appendectomy, Hx Orthopedic Surgery - R. knee replacement right wrist, Hx Tubal Ligation - Immunizations Hx Diphtheria, Pertussis, Tetanus Vaccination: Yes Hx Pneumococcal Vaccination: 07/17/12 Review of Systems - Review of Systems -: Yes ROS unobtainable due to patient's medical condition - demented Constitutional: No symptoms reported EENT: No symptoms reported Cardiovascular: No symptoms reported Respiratory: See HPI, Cough Gastrointestinal: See HPI, Nausea, Vomiting Genitourinary: No symptoms reported Female Genitourinary: No symptoms reported Musculoskeletal: No symptoms reported Skin: No symptoms reported Hematologic/Lymphatic: No symptoms reported Neurological/Psychological: No symptoms reported -: Yes All other systems reviewed and negative Physical Exam - Vital signs Vitals: Pulse Ox 96 12/18/19 11:17 - Notes Notes: Physical Exam: General: Alert, demented, on ronny hugger. HEENT: Normocephalic. Atraumatic. PERRL. Extraocular movements intact. Oropharynx clear. Dry mucous membranes. Neck: Supple. Non-tender. Respiratory: No respiratory distress. Clear and equal breath sounds bilaterally. Cardiovascular: Regular rate and rhythm. Abdominal: Normal Inspection. Non-tender. No distension. Normal Bowel Sounds. Back: No gross abnormalities. Extremities: Moves all four extremities. Upper extremities: Normal inspection. Normal ROM. Lower extremities: Normal inspection. No edema. Normal ROM. Neurological: Demented, normal speech. Psychological: Normal affect. Normal Mood. Skin: Warm. Cool to the touch, on ronny hugger. Course - Vital Signs Vital signs: Temp Pulse Resp BP Pulse Ox 97.9 F 17 169/73 H 96 12/18/19 14:53 12/18/19 14:53 12/18/19 14:53 12/18/19 14:53 - Laboratory Result Diagrams: 12/18/19 10:28 12/18/19 10:28 Laboratory results interpreted by me: 12/18/19 12/18/19 12/18/19 10:28 10:28 11:35 RDW 15.0 H Sodium 132.5 L Carbon Dioxide 21 L Creatinine 0.46 L Glucose 224 H POC Glucose 211 H Urine Protein Urine Glucose (UA) Urine Ketones 12/18/19 12:30 RDW Sodium Carbon Dioxide Creatinine Glucose POC Glucose Urine Protein 30 H Urine Glucose (UA) >=500 H Urine Ketones TRACE H - EKG Interpretation by Il EKG shows normal: Sinus rhythm, [place], QRS Complexes. abnormal: Intervals - Borderline prolonged QT interval, ST-T Waves - Borderline inferior T abnormalities Rate: Normal - 93 Voltage: Consistant with LVH Heart block present: 1st Degree When compared to previous EKG there are: No significant change - Consults Don , PA Time consulted: 15:00 Consulted provider: will come to ER Discharge - Discharge Clinical Impression: Nausea and vomiting Qualifiers: Vomiting type: unspecified Vomiting Intractability: non-intractable Qualified Code(s): R11.2 - Nausea with vomiting, unspecified Hypothermia Qualifiers: Encounter type: initial encounter Qualified Code(s): T68.XXXA - Hypothermia, initial encounter High blood pressure Qualifiers: Hypertension type: essential hypertension Qualified Code(s): I10 - Essential (primary) hypertension Condition: Stable Disposition: ADMITTED INPATIENT Admitting Provider: Tone (Hospitalist) Unit Admitted: Telemetry Referrals: RAJESH CISNEROS MD [Primary Care Provider] - Follow up as needed I personally performed the services described in the documentation, reviewed and edited the documentation which was dictated to the scribe in my presence, and it accurately records my words and actions.
[2019-12-18] MEDS ORDERED: HYDRALAZINE HCL INJ/PF 20 MG/1 ML SDV IV ONE (12:45)
[2019-12-18 13:34] LABS: CREATINE KINASE MB 0.87 ng/mL (<4.55)
[2019-12-18 13:36] LABS: TROPONIN I < 0.012 ng/mL
--- NOTE | 2019-12-18 14:47 | RADIOLOGY REPORT (SQ) ---
EXAM DESCRIPTION: CHEST SINGLE VIEW COMPLETED DATE/TIME: 12/18/2019 2:33 pm REASON FOR STUDY: hypothermia, N V COMPARISON: 06/28/2019 EXAM PARAMETERS: NUMBER OF VIEWS: One view. TECHNIQUE: Single frontal radiographic view of the chest acquired. RADIATION DOSE: NA LIMITATIONS: None. FINDINGS: LUNGS AND PLEURA: Mild chronic interstitial changes. No infiltrate, effusion, or mass. MEDIASTINUM AND HILAR STRUCTURES: No masses. Contour normal. HEART AND VASCULAR STRUCTURES: Heart normal in size. Normal vasculature. BONES: No acute findings. HARDWARE: None in the chest. OTHER: No other significant finding. IMPRESSION: Mild chronic lung changes with no acute cardiopulmonary finding. TECHNICAL DOCUMENTATION: JOB ID: [id number] 2010 [employer] ([employer])- All Rights Reserved Reading location - IP/workstation name: [email or web address]
[2019-12-18 14:48] LABS: APPEARANCE,URINE CLEAR; BILIRUBIN,URINE NEGATIVE (NEGATIVE); COLOR,URINE COLORLESS; GLUCOSE, URINE >=500 mg/dL (NEGATIVE); KETONES,URINE TRACE mg/dL (NEGATIVE); LEUKOCYTE ESTERASE,URINE NEGATIVE (NEGATIVE); NITRITE,URINE NEGATIVE (NEGATIVE); PROTEIN,URINE 30 mg/dL (NEGATIVE); URINE SPECIFIC GRAVITY 1.008; UROBILINOGEN,URINE NEGATIVE mg/dL (<2.0)
[2019-12-18] MEDS ORDERED: ONDANSETRON HCL INJ/PF 4 MG/2 ML SDV IV ONE (14:58)
--- NOTE | 2019-12-18 15:40 | RADIOLOGY REPORT (SQ) ---
EXAM DESCRIPTION: CT HEAD WITHOUT COMPLETED DATE/TIME: 12/18/2019 3:30 pm REASON FOR STUDY: Unexplained hypothermia COMPARISON: 03/03/2019. TECHNIQUE: Axial images acquired through the brain without intravenous contrast. Images reviewed wi th bone, brain and subdural windows. Additional sagittal and coronal reconstructions were generated. Images stored on PACS. All CT scanners at this facility use dose modulation, iterative reconstruction, and/or weight based d osing when appropriate to reduce radiation dose to as low as reasonably achievable (ALARA). [facility]: Dose Right [facility]: CareDose [facility]: Dose Right [facility]: Teradose 4D [facility]: [employer] RADIATION DOSE: CT Rad equipment meets quality standard of care and radiation dose reduction techniq ues were employed. CTDIvol: 53.2 mGy. DLP: 991 mGy-cm.mGy. LIMITATIONS: None. FINDINGS: VENTRICLES: Prominent. CEREBRUM: No masses. No hemorrhage. No midline shift. Areas of low density in the white matter mos t likely due to chronic micro-vascular ischemic change. No evidence for acute infarction. CEREBELLUM: No masses. No hemorrhage. No alteration of density. No evidence for acute infarction. EXTRAAXIAL SPACES: Age-related involutional change. No fluid collections. No masses. ORBITS AND GLOBE: No intra- or extraconal masses. Normal contour of globe without masses. CALVARIUM: No fracture. PARANASAL SINUSES: No fluid or mucosal thickening. SOFT TISSUES: No mass or hematoma. OTHER: No other significant finding. IMPRESSION: CHRONIC CHANGES OF ATROPHY AND MICROVASCULAR ISCHEMIA. NO ACUTE PROCESS. EVIDENCE OF ACUTE STROKE: NO. TECHNICAL DOCUMENTATION: JOB ID: [id number] Quality ID # [id number]: Final reports with documentation of one or more dose reduction techniques (e.g., Au tomated exposure control, adjustment of the mA and/or kV according to patient size, use of iterative reconstruction technique) 2010 [employer]- All Rights Reserved Reading location - IP/workstation name: [email or web address]
[2019-12-18] MEDS ORDERED: NORMAL SALINE 1000 ML 1,000 ML IV PRN (16:00)
[2019-12-18] MEDS ORDERED: ONDANSETRON HCL INJ/PF 4 MG/2 ML SDV IV PRN (16:00)
[2019-12-18] MEDS ORDERED: MAGNESIUM HYDROXIDE SUSP 30 ML UDCUP PO PRN (16:00)
[2019-12-18] MEDS ORDERED: MAG HYDROX/AL HYDROX/SIMETH SUSP 30 ML UDCUP PO PRN (16:00)
[2019-12-18] MEDS ORDERED: ONDANSETRON 4 MG TAB.RAPDIS PO PRN (16:00)
[2019-12-18 16:03] LABS: C DIFFICILE GDH NEGATIVE (NEGATIVE)
[2019-12-18] MEDS ORDERED: OXYCODONE-ACETAMINOPHEN 5-325 MG TABLET PO ONE (16:03)
[2019-12-18] MEDS ORDERED: GLUCAGON,HUMAN RECOMB 1 MG INJ IM PRN (16:15)
[2019-12-18] MEDS ORDERED: DEXTROSE 50%-WATER 25 GM/50 ML DISP.SYRIN IV PRN ×2 (16:15)
[2019-12-18] MEDS ORDERED: DEXTROSE 40% GEL 15 GM TUBE PO PRN ×2 (16:15)
--- NOTE | 2019-12-18 16:28 | PDOC H&P ---
History of Present Illness Admission Date/PCP: 12/18/19 15:11 RAJESH CISNEROS MD History of Present Illness: DEO ROBERTSON is a 74 year old female mated to the hospital for nausea, vo miting , and generalized pain. According to the patient and her who is in the room this is been going on for several days now if not longer. According to the ER physician who spoke to the son he is no longer able to care for his mother at home. Patient came to the emergency room she had a diaper on that was covered in stool as well as urine, patient was hypothermic and confused. Past Medical History Cardiac Medical History: Reports: Myocardial Infarction - 2018, Hyperlipidema Denies: Coronary Artery Disease, Hypertension Pulmonary Medical History: Reports: Chronic Obstructive Pulmonary Disease (COPD) - DOES NOT USE INHALERS Denies: Asthma, Bronchitis, Pneumonia Neurological Medical History: Denies: Seizures Endocrine Medical History: Reports: Diabetes Mellitus Type 2 Musculoskeltal Medical History: Reports: Arthritis - RIGHT KNEE Hematology: Denies: Anemia Past Surgical History Past Surgical History: Reports: Appendectomy, Orthopedic Surgery - R. knee replacement right wrist, Tubal Ligation Social History Lives with: Family Smoking Status: Current Every Day Smoker Drugs: None - Advance Directive Resuscitation Status: Do Not Resuscitate Family History Family History: Reviewed & Not Pertinent Parental Family History Reviewed: No Children Family History Reviewed: No Sibling(s) Family History Reviewed.: No Medication/Allergy Home Medications: Alprazolam [Xanax] 1 mg PO TIDP PRN 06/28/19 Carvedilol [Coreg 3.125 mg Tablet] 3.125 mg PO BID 06/28/19 Divalproex Sodium 1,500 mg PO DAILY 06/28/19 Donepezil HCl [Aricept] 5 mg PO DAILY 06/28/19 Furosemide [Lasix 20 mg Tablet] 20 mg PO QAMP PRN 06/28/19 Metformin HCl [Metformin HCl ER] 1,000 mg PO BID 06/28/19 Oxycodone HCl/Acetaminophen [Percocet 7.5-325 mg Tablet] 1 each PO TIDP PRN 06/28/19 Sertraline HCl [Zoloft] 200 mg PO DAILY 06/28/19 Zolpidem Tartrate [Ambien] 15 mg PO QHS 06/28/19 Sulfamethoxazole/Trimethoprim [Bactrim Ds Tablet] 1 each PO BID 4 Days #8 tablet 06/29/19 Pantoprazole Sodium 40 mg PO DAILY 30 Days #30 tablet. 06/30/19 Allergies/Adverse Reactions: Penicillins Allergy (Verified 06/28/19 08:00) Review of Systems Constitutional: PRESENT: as per HPI, fatigue, weakness Respiratory: PRESENT: cough Gastrointestinal: ABSENT: abdominal pain, constipation, diarrhea, hematemesis, hematochezia, nausea, vomiting Musculoskeletal: PRESENT: back pain, other - Generalized pain Neurological: ABSENT: abnormal gait, abnormal speech, confusion, dizziness, focal weakness, syncope Psychiatric: ABSENT: anxiety, depression, homidical ideation, suicidal ideation Physical Exam Vital Signs: Temp Pulse Resp BP Pulse Ox 97.9 F 17 169/73 H 96 12/18/19 14:53 12/18/19 14:53 12/18/19 14:53 12/18/19 14:53 Intake & Output 12/17/19 12/18/19 12/19/19 06:59 06:59 06:59 Weight 50.3 kg General appearance: PRESENT: no acute distress, other - Patient states that "she wants to go see [facility]", does not want to be resuscitated. Respiratory exam: PRESENT: clear to auscultation parvez. ABSENT: rales, rhonchi, wheezes Cardiovascular exam: PRESENT: RRR. ABSENT: diastolic murmur, rubs, systolic murmur Neurological exam: PRESENT: alert, awake, oriented to person, oriented to place, oriented to time, oriented to situation, CN II-XII grossly intact. ABSENT: motor sensory deficit Psychiatric exam: PRESENT: depressed Results Laboratory Results: 12/18/19 10:28 12/18/19 10:28 12/18/19 12/18/19 12/18/19 10:28 10:28 11:37 WBC 8.5 RBC 4.45 Hgb 14.1 Hct 42.3 MCV 95 MCH 31.7 MCHC 33.3 RDW 15.0 H Plt Count 337 Seg Neutrophils % 58.2 VBG pH 7.34 VBG pCO2 42.2 VBG HCO3 22.3 VBG Base Excess -3.3 Sodium 132.5 L Potassium 4.3 Chloride 102 Carbon Dioxide 21 L Anion Gap 10 BUN 11 Creatinine 0.46 L Est GFR ( Amer) > 60 Glucose 224 H Lactic Acid Calcium 9.4 Total Bilirubin 0.5 AST 20 Alkaline Phosphatase 85 Total Protein 7.1 Albumin 4.0 Urine Color Urine Appearance Urine pH Ur Specific [place] Urine Protein Urine Glucose (UA) Urine Ketones Urine Blood Urine Nitrite Ur Leukocyte Esterase Urine WBC (Auto) Urine RBC (Auto) Stool for White Cells 12/18/19 12/18/19 12/18/19 11:37 12:30 13:35 WBC RBC Hgb Hct MCV MCH MCHC RDW Plt Count Seg Neutrophils % VBG pH VBG pCO2 VBG HCO3 VBG Base Excess Sodium Potassium Chloride Carbon Dioxide Anion Gap BUN Creatinine Est GFR ( Amer) Glucose Lactic Acid 0.9 0.8 Calcium Total Bilirubin AST Alkaline Phosphatase Total Protein Albumin Urine Color COLORLESS Urine Appearance CLEAR Urine pH 7.0 Ur Specific [place] 1.008 Urine Protein 30 H Urine Glucose (UA) >=500 H Urine Ketones TRACE H Urine Blood NEGATIVE Urine Nitrite NEGATIVE Ur Leukocyte Esterase NEGATIVE Urine WBC (Auto) 1 Urine RBC (Auto) 1 Stool for White Cells 12/18/19 14:51 WBC RBC Hgb Hct MCV MCH MCHC RDW Plt Count Seg Neutrophils % VBG pH VBG pCO2 VBG HCO3 VBG Base Excess Sodium Potassium Chloride Carbon Dioxide Anion Gap BUN Creatinine Est GFR ( Amer) Glucose Lactic Acid Calcium Total Bilirubin AST Alkaline Phosphatase Total Protein Albumin Urine Color Urine Appearance Urine pH Ur Specific [place] Urine Protein Urine Glucose (UA) Urine Ketones Urine Blood Urine Nitrite Ur Leukocyte Esterase Urine WBC (Auto) Urine RBC (Auto) Stool for White Cells NO WBCs SEEN 12/18/19 12/18/19 12:14 12:14 Creatine Kinase 33 CK-MB (CK-2) 0.87 Troponin I < 0.012 Impressions: Chest X-Ray 12/18/19 14:17 IMPRESSION: Mild chronic lung changes with no acute cardiopulmonary finding. Head CT 12/18/19 15:02 IMPRESSION: CHRONIC CHANGES OF ATROPHY AND MICROVASCULAR ISCHEMIA. NO ACUTE PROCESS. EVIDENCE OF ACUTE STROKE: NO. Assessment and Plan - Diagnosis (1) Hypertension Qualifiers: Hypertension type: essential hypertension Qualified Code(s): I10 - Essential (primary) hypertension Is this a current diagnosis for this admission?: Yes (2) Hypothermia Qualifiers: Encounter type: initial encounter Qualified Code(s): T68.XXXA - Hypothermia, initial encounter Is this a current diagnosis for this admission?: Yes (3) Nausea and vomiting Qualifiers: Vomiting type: unspecified Vomiting Intractability: non-intractable Qualified Code(s): R11.2 - Nausea with vomiting, unspecified Is this a current diagnosis for this admission?: Yes (4) Anxiety Is this a current diagnosis for this admission?: Yes (5) Diabetes Qualifiers: Diabetes mellitus type: type 2 Is this a current diagnosis for this admission?: Yes - Plan Summary Summary: 12/18/2019 Patient will be admitted for gentle hydration, physical therapy, occupational therapy evaluation. Blood cultures urine cultures are pending. Patient will be started on prophylactic antibiotics due to her hypothermia when she presented, even though she does not appear to be overtly septic. Lactic acid level x2 is normal 0.9, 0.8. CT head scan shows prominent ventricles, hydrocephalus, as well as microvascular ischemic changes Per the ER note patient has had nausea and vomiting however her complaint to me is "I hurt all over". Patient was taking Percocet at home and patient has been involved in a pain clinic in the past - Time Time Spent with patient: 35 or more minutes
[2019-12-18] MEDS: DIVALPROEX SODIUM 500 MG TAB.SR.24H PO SCH (17:45)
[2019-12-18] MEDS ORDERED: INFLUENZA QUAD (6MOS+) 2019-20 VAC 0.5 ML SYR IM ONE (18:11)
[2019-12-18] MEDS: MEROPENEM 500 MG in NORMAL SALINE 50 ML IV SCH (21:53)
[2019-12-18] MEDS: OXYCODONE-ACETAMINOPHEN 5-325 MG TABLET PO PRN (21:54)
[2019-12-18] MEDS: ALPRAZOLAM 0.5 MG TABLET PO PRN (21:55)
[2019-12-18] MEDS: CARVEDILOL 3.125 MG TABLET PO SCH (21:55)
[2019-12-18] MEDS: DONEPEZIL HCL 5 MG TABLET PO SCH (21:55)
[2019-12-18] MEDS: FAMOTIDINE 20 MG TABLET PO SCH (21:59)
[2019-12-19] MEDS: INSULIN LISPRO 100 UNIT/ML 3 ML VIAL SUBCUT SCH ×4 (01:49→17:37)
[2019-12-19 04:22] LABS: ABSOLUTE EOSINOPHILS # (AUTO) 0.3 10^3/uL (0.0-0.6); ABSOLUTE LYMPHOCYTES (AUTO) 2.8 10^3/uL (0.5-4.7); ABSOLUTE MONOCYTES (AUTO) 0.7 10^3/uL (0.1-1.4); ABSOLUTE NEUT (AUTO) 4.5 10^3/uL (1.7-8.2); BASOPHILS % (AUTO) 0.4 % (0-2); EOSINOPHILS % (AUTO) 3.1 % (0-6); HEMATOCRIT 37.8 % (36.0-47.0); HEMOGLOBIN 12.8 g/dL (12.0-15.5); LYMPHOCYTES % (AUTO) 33.4 % (13-45); MEAN CORPUSCULAR HEMOGLOBIN 32.2 pg (27.0-33.4); MEAN CORPUSCULAR HGB CONC 33.9 g/dL (32.0-36.0); MEAN CORPUSCULAR VOLUME 95 fl (80-97); MONOCYTES % (AUTO) 8.8 % (3-13); PLATELET COUNT 285 10^3/uL (150-450); RED BLOOD COUNT 3.97 10^6/uL (3.72-5.28); SEGMENTED NEUTROPHILS % (AUTO) 54.3 % (42-78); TOTAL CELLS COUNTED % (AUTO) 100 %; WHITE BLOOD COUNT 8.3 10^3/uL (4.0-10.5)
[2019-12-19] MEDS: DIVALPROEX SODIUM 500 MG TAB.SR.24H PO SCH ×3 (04:32→22:31)
[2019-12-19] MEDS: OXYCODONE-ACETAMINOPHEN 5-325 MG TABLET PO PRN ×3 (04:33→22:32)
[2019-12-19 04:39] LABS: BLOOD UREA NITROGEN 13 mg/dL (7-20); CALCIUM 8.9 mg/dL (8.4-10.2); GLUCOSE 105 mg/dL (75-110)
[2019-12-19 04:46] LABS: ANION GAP 6 (5-19); CARBON DIOXIDE 24 mmol/L (22-30); CHLORIDE 102 mmol/L (98-107)
[2019-12-19] MEDS: MEROPENEM 500 MG in NORMAL SALINE 50 ML IV SCH ×3 (05:01→22:34)
[2019-12-19] MEDS ORDERED: NORMAL SALINE 500 ML IV ONE (05:45)
[2019-12-19] MEDS: METFORMIN HCL 500 MG TABLET PO SCH ×2 (08:01→17:03)
[2019-12-19] MEDS: ENOXAPARIN SODIUM INJ 30 MG/0.3 ML DISP.SYRIN SUBCUT SCH (09:49)
[2019-12-19] MEDS: CARVEDILOL 3.125 MG TABLET PO SCH (09:50)
[2019-12-19] MEDS: DOCUSATE SODIUM 100 MG CAPSULE PO SCH (09:50)
[2019-12-19] MEDS: FUROSEMIDE 20 MG TABLET PO SCH (09:51)
[2019-12-19] MEDS: FAMOTIDINE 20 MG TABLET PO SCH ×2 (09:51→22:34)
--- NOTE | 2019-12-19 10:38 | PDOC PROGRESS REPORT ---
Subjective Progress Note for:: 12/19/19 Reason For Visit: DEMENTIA, HYPERTENSION, GASTROENTERITIS 12/19/2019 Patient was admitted through the emergency room yesterday for nausea vomiting and generalized pain. Also generalized weakness Physical Exam Vital Signs: Temp Pulse Resp BP Pulse Ox 97.8 F 91 16 172/67 H 96 12/19/19 07:41 12/19/19 07:41 12/19/19 07:41 12/19/19 07:41 12/19/19 07:41 Intake & Output 12/18/19 12/19/19 12/20/19 06:59 06:59 06:59 Intake Total 565 500 Output Total 125 Balance 440 500 Weight 29.5 kg General appearance: PRESENT: no acute distress Respiratory exam: PRESENT: clear to auscultation parvez. ABSENT: rales, rhonchi, wheezes Cardiovascular exam: PRESENT: RRR. ABSENT: diastolic murmur, rubs, systolic m urmur Neurological exam: PRESENT: alert, awake, oriented to person, oriented to place, oriented to time, oriented to situation, CN II-XII grossly intact. ABSENT: motor sensory deficit Psychiatric exam: PRESENT: appropriate affect, normal mood. ABSENT: homicidal ideation, suicidal ideation Results Laboratory Results: 12/19/19 04:13 12/19/19 04:13 12/18/19 12/18/19 12/18/19 10:28 10:28 10:28 WBC 8.5 RBC 4.45 Hgb 14.1 Hct 42.3 MCV 95 MCH 31.7 MCHC 33.3 RDW 15.0 H Plt Count 337 Seg Neutrophils % 58.2 VBG pH VBG pCO2 VBG HCO3 VBG Base Excess Sodium 132.5 L Potassium 4.3 Chloride 102 Carbon Dioxide 21 L Anion Gap 10 BUN 11 Creatinine 0.46 L Est GFR ( Amer) > 60 Glucose 224 H Lactic Acid Calcium 9.4 Magnesium Total Bilirubin 0.5 AST 20 Alkaline Phosphatase 85 Total Protein 7.1 Albumin 4.0 TSH 1.68 Urine Color Urine Appearance Urine pH Ur Specific [place] Urine Protein Urine Glucose (UA) Urine Ketones Urine Blood Urine Nitrite Ur Leukocyte Esterase Urine WBC (Auto) Urine RBC (Auto) Stool for White Cells 12/18/19 12/18/19 12/18/19 11:37 11:37 12:30 WBC RBC Hgb Hct MCV MCH MCHC RDW Plt Count Seg Neutrophils % VBG pH 7.34 VBG pCO2 42.2 VBG HCO3 22.3 VBG Base Excess -3.3 Sodium Potassium Chloride Carbon Dioxide Anion Gap BUN Creatinine Est GFR ( Amer) Glucose Lactic Acid 0.9 Calcium Magnesium Total Bilirubin AST Alkaline Phosphatase Total Protein Albumin TSH Urine Color COLORLESS Urine Appearance CLEAR Urine pH 7.0 Ur Specific [place] 1.008 Urine Protein 30 H Urine Glucose (UA) >=500 H Urine Ketones TRACE H Urine Blood NEGATIVE Urine Nitrite NEGATIVE Ur Leukocyte Esterase NEGATIVE Urine WBC (Auto) 1 Urine RBC (Auto) 1 Stool for White Cells 12/18/19 12/18/19 12/18/19 13:35 14:51 18:05 WBC RBC Hgb Hct MCV MCH MCHC RDW Plt Count Seg Neutrophils % VBG pH VBG pCO2 VBG HCO3 VBG Base Excess Sodium Potassium Chloride Carbon Dioxide Anion Gap BUN Creatinine Est GFR ( Amer) Glucose Lactic Acid 0.8 0.9 Calcium Magnesium Total Bilirubin AST Alkaline Phosphatase Total Protein Albumin TSH Urine Color Urine Appearance Urine pH Ur Specific [place] Urine Protein Urine Glucose (UA) Urine Ketones Urine Blood Urine Nitrite Ur Leukocyte Esterase Urine WBC (Auto) Urine RBC (Auto) Stool for White Cells NO WBCs SEEN 12/19/19 12/19/19 04:13 04:13 WBC 8.3 RBC 3.97 Hgb 12.8 Hct 37.8 MCV 95 MCH 32.2 MCHC 33.9 RDW 15.0 H Plt Count 285 Seg Neutrophils % 54.3 VBG pH VBG pCO2 VBG HCO3 VBG Base Excess Sodium 132.0 L Potassium 4.0 Chloride 102 Carbon Dioxide 24 Anion Gap 6 BUN 13 Creatinine 0.57 Est GFR ( Amer) > 60 Glucose 105 Lactic Acid Calcium 8.9 Magnesium 1.6 Total Bilirubin AST Alkaline Phosphatase Total Protein Albumin TSH Urine Color Urine Appearance Urine pH Ur Specific [place] Urine Protein Urine Glucose (UA) Urine Ketones Urine Blood Urine Nitrite Ur Leukocyte Esterase Urine WBC (Auto) Urine RBC (Auto) Stool for White Cells 12/18/19 12/18/19 12:14 12:14 Creatine Kinase 33 CK-MB (CK-2) 0.87 Troponin I < 0.012 Impressions: Chest X-Ray 12/18/19 14:17 IMPRESSION: Mild chronic lung changes with no acute cardiopulmonary finding. Head CT 12/18/19 15:02 IMPRESSION: CHRONIC CHANGES OF ATROPHY AND MICROVASCULAR ISCHEMIA. NO ACUTE PROCESS. EVIDENCE OF ACUTE STROKE: NO. Assessment and Plan - Diagnosis (1) Hypertension Qualifiers: Hypertension type: essential hypertension Qualified Code(s): I10 - Essential (primary) hypertension Is this a current diagnosis for this admission?: Yes (2) Hypothermia Qualifiers: Encounter type: initial encounter Qualified Code(s): T68.XXXA - Hypothermia, initial encounter Is this a current diagnosis for this admission?: Yes (3) Nausea and vomiting Qualifiers: Vomiting type: unspecified Vomiting Intractability: non-intractable Qualified Code(s): R11.2 - Nausea with vomiting, unspecified Is this a current diagnosis for this admission?: Yes (4) Anxiety Is this a current diagnosis for this admission?: Yes (5) Diabetes Qualifiers: Diabetes mellitus type: type 2 Is this a current diagnosis for this admission?: Yes (6) Generalized weakness Is this a current diagnosis for this admission?: Yes - Plan Summary Summary: 12/18/2019 Patient will be admitted for gentle hydration, physical therapy, occupational therapy evaluation. Blood cultures urine cultures are pending. Patient will be started on prophylactic antibiotics due to her hypothermia when she presented, even though she does not appear to be overtly septic. Lactic acid level x2 is normal 0.9, 0.8. CT head scan shows prominent ventricles, hydrocephalus, as well as microvascular ischemic changes Per the ER note patient has had nausea and vomiting however her complaint to me is "I hurt all over". Patient was taking Percocet at home and patient has been involved in a pain clinic in the past 12/19/2019 Patient states she feels much better who is in the room says he thinks she looks a lot better today than she did yesterday. Temperature 97.8 pulse of 91 blood pressure 172/67. Pressures are better now than when admitted but still elevated. Think a good systolic for her would be around 160 and a good diastolic would be around 70 White count is still normal 8.3 Electrolytes are normal C. difficile is negative no WBC in the stool Blood culture urine cultures are pending IV fluids of normal saline at 60/h Because her Depakote levels are low I am going to increase her Depakote Also going to increase her Coreg Continue the meropenem Family would like the patient to stay in the hospital for 3 nights so she qualifies for rehab at discharge - Time Time Spent with patient: 25-34 minutes
[2019-12-19] MEDS: NORMAL SALINE 1000 ML 1,000 ML IV PRN ×2 (12:16→22:34)
[2019-12-19] MEDS: ALPRAZOLAM 0.5 MG TABLET PO PRN (15:52)
[2019-12-19] MEDS: CARVEDILOL 6.25 MG TABLET PO SCH ×2 (18:05→22:33)
[2019-12-19] MEDS: DONEPEZIL HCL 5 MG TABLET PO SCH (22:32)
[2019-12-20] MEDS: ALPRAZOLAM 0.5 MG TABLET PO PRN ×2 (01:21→18:13)
[2019-12-20] MEDS: ACETAMINOPHEN 325 MG TABLET PO PRN ×2 (01:21→21:17)
[2019-12-20] MEDS: INSULIN LISPRO 100 UNIT/ML 3 ML VIAL SUBCUT SCH ×5 (02:01→21:18)
[2019-12-20] MEDS: MEROPENEM 500 MG in NORMAL SALINE 50 ML IV SCH ×3 (06:34→21:21)
[2019-12-20] MEDS: METFORMIN HCL 500 MG TABLET PO SCH ×2 (08:38→18:11)
[2019-12-20] MEDS: CARVEDILOL 3.125 MG TABLET PO SCH (08:38)
[2019-12-20] MEDS: DOCUSATE SODIUM 100 MG CAPSULE PO SCH (10:42)
[2019-12-20] MEDS: DIVALPROEX SODIUM 500 MG TAB.SR.24H PO SCH ×2 (10:42→21:16)
[2019-12-20] MEDS: FAMOTIDINE 20 MG TABLET PO SCH ×2 (10:42→21:17)
[2019-12-20] MEDS: FUROSEMIDE 20 MG TABLET PO SCH (10:42)
[2019-12-20] MEDS: ENOXAPARIN SODIUM INJ 30 MG/0.3 ML DISP.SYRIN SUBCUT SCH (10:43)
[2019-12-20] MEDS: OXYCODONE-ACETAMINOPHEN 5-325 MG TABLET PO PRN ×2 (10:45→21:17)
[2019-12-20] MEDS: NORMAL SALINE 1000 ML 1,000 ML IV PRN ×2 (10:46→21:23)
--- NOTE | 2019-12-20 11:26 | PDOC PROGRESS REPORT ---
Subjective Progress Note for:: 12/20/19 Reason For Visit: DEMENTIA, HYPERTENSION, GASTROENTERITIS 12/20/2019 Admitted for hypertension, dementia, gastroenteritis, placement issues to [facility] Physical Exam Vital Signs: Temp Pulse Resp BP Pulse Ox 98.0 F 92 16 163/73 H 97 12/20/19 08:20 12/20/19 08:20 12/20/19 08:20 12/20/19 08:20 12/20/19 08:20 Intake & Output 12/19/19 12/20/19 12/21/19 06:59 06:59 06:59 Intake Total 565 3880 1050 Output Total 125 1775 Balance 440 2105 1050 Weight 29.5 kg 29.1 kg General appearance: PRESENT: no acute distress, other - Patient's biggest complaint today is her left wrist that is been bothering her for 4 years now, and according to the patient has seen multiple providers for this Respiratory exam: PRESENT: clear to auscultation parvez. ABSENT: rales, rhonchi, wheezes Cardiovascular exam: PRESENT: RRR. ABSENT: diastolic murmur, rubs, systolic murmur Extremities exam: PRESENT: other - Patient has a prominent radial styloid, never no redness, no soft tissue swelling Neurological exam: PRESENT: alert, awake, oriented to person, oriented to place, oriented to time, oriented to situation, CN II-XII grossly intact. ABSENT: motor sensory deficit Psychiatric exam: PRESENT: appropriate affect, normal mood. ABSENT: homicidal ideation, suicidal ideation Results Laboratory Results: 12/19/19 04:13 12/19/19 04:13 12/18/19 12:30 Gu Catheter Urine Culture - Final NO GROWTH 2 DAYS 12/18/19 14:51 Stool - Stool - Final 12/18/19 12/18/19 12:14 12:14 Creatine Kinase 33 CK-MB (CK-2) 0.87 Troponin I < 0.012 Impressions: Chest X-Ray 12/18/19 14:17 IMPRESSION: Mild chronic lung changes with no acute cardiopulmonary finding. Head CT 12/18/19 15:02 IMPRESSION: CHRONIC CHANGES OF ATROPHY AND MICROVASCULAR ISCHEMIA. NO ACUTE PROCESS. EVIDENCE OF ACUTE STROKE: NO. Assessment and Plan - Diagnosis (1) Hypertension Qualifiers: Hypertension type: essential hypertension Qualified Code(s): I10 - Essential (primary) hypertension Is this a current diagnosis for this admission?: Yes (2) Hypothermia Qualifiers: Encounter type: initial encounter Qualified Code(s): T68.XXXA - Hypothermia, initial encounter Is this a current diagnosis for this admission?: Yes (3) Nausea and vomiting Qualifiers: Vomiting type: unspecified Vomiting Intractability: non-intractable Qualified Code(s): R11.2 - Nausea with vomiting, unspecified Is this a current diagnosis for this admission?: Yes (4) Anxiety Is this a current diagnosis for this admission?: Yes (5) Diabetes Qualifiers: Diabetes mellitus type: type 2 Is this a current diagnosis for this admission?: Yes (6) Generalized weakness Is this a current diagnosis for this admission?: Yes - Plan Summary Summary: 12/18/2019 Patient will be admitted for gentle hydration, physical therapy, occupational therapy evaluation. Blood cultures urine cultures are pending. Patient will be started on prophylactic antibiotics due to her hypothermia when she presented, even though she does not appear to be overtly septic. Lactic acid level x2 is normal 0.9, 0.8. CT head scan shows prominent ventricles, hydrocephalus, as well as microvascular ischemic changes Per the ER note patient has had nausea and vomiting however her complaint to me is "I hurt all over". Patient was taking Percocet at home and patient has been involved in a pain clinic in the past 12/19/2019 Patient states she feels much better who is in the room says he thinks she looks a lot better today than she did yesterday. Temperature 97.8 pulse of 91 blood pressure 172/67. Pressures are better now than when admitted but still elevated. Think a good systolic for her would be around 160 and a good diastolic would be around 70 White count is still normal 8.3 Electrolytes are normal C. difficile is negative no WBC in the stool Blood culture urine cultures are pending IV fluids of normal saline at 60/h Because her Depakote levels are low I am going to increase her Depakote Also going to increase her Coreg Continue the meropenem Family would like the patient to stay in the hospital for 3 nights so she qualifies for rehab at discharge 12/20/2019 Patient is sitting up in bed eating breakfast while speaking to me. His complaint is left wrist pain that she has had for over 4 years now.. Patient has been dissatisfied with the provider she is seen for this problem in the past. She has asked if I can x-ray her left wrist Patient appears to be medically stable to go to [facility] facility tomorrow if accepted. We will transfer patient to p.o. antibiotics at time of discharge Patient will need 7 more days of p.o. antibiotics if discharged on December 20 - Time Time Spent with patient: 25-34 minutes
--- NOTE | 2019-12-20 13:54 | RADIOLOGY REPORT (SQ) ---
EXAM DESCRIPTION: WRIST LEFT 2 VIEWS COMPLETED DATE/TIME: 12/20/2019 1:34 pm REASON FOR STUDY: Left wrist pain x4 years COMPARISON: Left wrist films 08/28/2013, 11/10/2017, 03/29/2019 NUMBER OF VIEWS: Three views. TECHNIQUE: AP, lateral, and oblique radiographic images acquired of the left wrist. LIMITATIONS: None. FINDINGS: MINERALIZATION: Osteopenic BONES: No acute fracture or dislocation. No worrisome bone lesions. Normal alignment. SOFT TISSUES: There is dorsal left wrist soft tissue swelling. This could be related to a joint effu yohana or periarticular cyst OTHER: No other significant finding. IMPRESSION: Dorsal left wrist soft tissue swelling without acute fracture or malalignment. TECHNICAL DOCUMENTATION: JOB ID: [id number] [employer]- All Rights Reserved Reading location - IP/workstation name: [email or web address]
[2019-12-20] MEDS: DONEPEZIL HCL 5 MG TABLET PO SCH (21:17)
[2019-12-20] MEDS: CARVEDILOL 6.25 MG TABLET PO SCH (21:17)
[2019-12-21] MEDS: OXYCODONE-ACETAMINOPHEN 5-325 MG TABLET PO PRN ×2 (05:36→21:00)
[2019-12-21] MEDS: MEROPENEM 500 MG in NORMAL SALINE 50 ML IV SCH (05:36)
[2019-12-21] MEDS: CARVEDILOL 3.125 MG TABLET PO SCH (08:01)
[2019-12-21] MEDS: METFORMIN HCL 500 MG TABLET PO SCH ×2 (08:01→15:58)
[2019-12-21] MEDS: INSULIN LISPRO 100 UNIT/ML 3 ML VIAL SUBCUT SCH ×4 (08:07→21:00)
[2019-12-21] MEDS: FUROSEMIDE 20 MG TABLET PO SCH (09:19)
[2019-12-21] MEDS: DOCUSATE SODIUM 100 MG CAPSULE PO SCH (09:19)
[2019-12-21] MEDS: FAMOTIDINE 20 MG TABLET PO SCH ×2 (09:19→21:00)
[2019-12-21] MEDS: DIVALPROEX SODIUM 500 MG TAB.SR.24H PO SCH ×2 (09:19→20:59)
[2019-12-21] MEDS: ENOXAPARIN SODIUM INJ 30 MG/0.3 ML DISP.SYRIN SUBCUT SCH (09:22)
[2019-12-21] MEDS ORDERED: HYDRALAZINE HCL INJ/PF 20 MG/1 ML SDV IV ONE (12:13)
--- NOTE | 2019-12-21 12:38 | PDOC PROGRESS REPORT ---
Subjective Progress Note for:: 12/21/19 Reason For Visit: DEMENTIA, HYPERTENSION, GASTROENTERITIS 12/21/2019 Admitted for hypertension dementia gastroenteritis and rehab/assisted placement Physical Exam Vital Signs: Temp Pulse Resp BP Pulse Ox 98.0 F 87 16 192/62 H 93 12/21/19 07:19 12/21/19 07:19 12/21/19 07:19 12/21/19 07:19 12/21/19 07:19 Intake & Output 12/20/19 12/21/19 12/22/19 06:59 06:59 06:59 Intake Total 3880 2627 50 Output Total 1775 2700 Balance 2105 -73 50 Weight 29.1 kg 46.9 kg General appearance: PRESENT: no acute distress Respiratory exam: PRESENT: clear to auscultation parvez. ABSENT: rales, rhonchi, wheezes Cardiovascular exam: PRESENT: RRR. ABSENT: diastolic murmur, rubs, systolic murmur Neurological exam: PRESENT: alert, awake, oriented to person, oriented to place, oriented to time, oriented to situation, CN II-XII grossly intact. ABSENT: motor sensory deficit Psychiatric exam: PRESENT: appropriate affect, normal mood. ABSENT: homicidal ideation, suicidal ideation Results Laboratory Results: 12/19/19 04:13 12/19/19 04:13 12/18/19 14:51 Stool - Stool - Final 12/18/19 14:51 Stool - Stool Stool Culture - Final NO SALMONELLA, SHIGELLA, CAMPYLOBACTER, OR E.COLI 0157 RECOVERED. NEGATIVE FOR SHIGA TOXINS 1&2. 12/18/19 12:30 Gu Catheter Urine Culture - Final NO GROWTH 2 DAYS 12/18/19 12/18/19 12:14 12:14 Creatine Kinase 33 CK-MB (CK-2) 0.87 Troponin I < 0.012 Impressions: Chest X-Ray 12/18/19 14:17 IMPRESSION: Mild chronic lung changes with no acute cardiopulmonary finding. Head CT 12/18/19 15:02 IMPRESSION: CHRONIC CHANGES OF ATROPHY AND MICROVASCULAR ISCHEMIA. NO ACUTE PROCESS. EVIDENCE OF ACUTE STROKE: NO. Wrist X-Ray 12/20/19 00:00 IMPRESSION: Dorsal left wrist soft tissue swelling without acute fracture or malalignment. Assessment and Plan - Diagnosis (1) Hypertension Qualifiers: Hypertension type: essential hypertension Qualified Code(s): I10 - Essential (primary) hypertension Is this a current diagnosis for this admission?: Yes (2) Hypothermia Qualifiers: Encounter type: initial encounter Qualified Code(s): T68.XXXA - Hypothermi a, initial encounter Is this a current diagnosis for this admission?: Yes (3) Nausea and vomiting Qualifiers: Vomiting type: unspecified Vomiting Intractability: non-intractable Qualified Code(s): R11.2 - Nausea with vomiting, unspecified Is this a current diagnosis for this admission?: Yes (4) Anxiety Is this a current diagnosis for this admission?: Yes (5) Diabetes Qualifiers: Diabetes mellitus type: type 2 Is this a current diagnosis for this admission?: Yes (6) Generalized weakness Is this a current diagnosis for this admission?: Yes - Plan Summary Summary: 12/18/2019 Patient will be admitted for gentle hydration, physical therapy, occupational therapy evaluation. Blood cultures urine cultures are pending. Patient will be started on prophylactic antibiotics due to her hypothermia when she presented, even though she does not appear to be overtly septic. Lactic acid level x2 is normal 0.9, 0.8. CT head scan shows prominent ventricles, hydrocephalus, as well as microvascular ischemic changes Per the ER note patient has had nausea and vomiting however her complaint to me is "I hurt all over". Patient was taking Percocet at home and patient has been involved in a pain clinic in the past 12/19/2019 Patient states she feels much better who is in the room says he thinks she looks a lot better today than she did yesterday. Temperature 97.8 pulse of 91 blood pressure 172/67. Pressures are better now than when admitted but still elevated. Think a good systolic for her would be around 160 and a good diastolic would be around 70 White count is still normal 8.3 Electrolytes are normal C. difficile is negative no WBC in the stool Blood culture urine cultures are pending IV fluids of normal saline at 60/h Because her Depakote levels are low I am going to increase her Depakote Also going to increase her Coreg Continue the meropenem Family would like the patient to stay in the hospital for 3 nights so she qualif ies for rehab at discharge 12/20/2019 Patient is sitting up in bed eating breakfast while speaking to me. His complaint is left wrist pain that she has had for over 4 years now.. Patient has been dissatisfied with the provider she is seen for this problem in the past. She has asked if I can x-ray her left wrist Patient appears to be medically stable to go to alf facility tomorrow if accepted. We will transfer patient to p.o. antibiotics at time of discharge Patient will need 7 more days of p.o. antibiotics if discharged on December 20 12/21/2019 Actually feels fine in fact she says she feels better than on admission, her blood pressure continues to be elevated. Going to increase her Coreg again to 6.25 every 12 hours. Also going to add valsartan to her medications X-rays of the left wrist showed no bony abnormalities only possible small effusion of the joint Patient is being recommended for alf facility Will discontinue IV antibiotics since blood culture showed no growth and urine culture shows no growth - Time Time Spent with patient: 25-34 minutes
[2019-12-21] MEDS: ALPRAZOLAM 0.5 MG TABLET PO PRN (16:52)
[2019-12-21] MEDS: CARVEDILOL 6.25 MG TABLET PO SCH (20:59)
[2019-12-21] MEDS: DONEPEZIL HCL 5 MG TABLET PO SCH (21:00)
[2019-12-21] MEDS: NORMAL SALINE 1000 ML 1,000 ML IV PRN (21:03)
[2019-12-22] MEDS: ALPRAZOLAM 0.5 MG TABLET PO PRN ×2 (01:05→13:29)
[2019-12-22 06:00] LABS: ABSOLUTE EOSINOPHILS # (AUTO) 0.3 10^3/uL (0.0-0.6); ABSOLUTE LYMPHOCYTES (AUTO) 2.6 10^3/uL (0.5-4.7); ABSOLUTE MONOCYTES (AUTO) 0.9 10^3/uL (0.1-1.4); ABSOLUTE NEUT (AUTO) 2.7 10^3/uL (1.7-8.2); BASOPHILS % (AUTO) 0.7 % (0-2); EOSINOPHILS % (AUTO) 3.9 % (0-6); HEMATOCRIT 35.5 % (36.0-47.0); HEMOGLOBIN 11.8 g/dL (12.0-15.5); MEAN CORPUSCULAR HEMOGLOBIN 31.6 pg (27.0-33.4); MEAN CORPUSCULAR HGB CONC 33.3 g/dL (32.0-36.0); MEAN CORPUSCULAR VOLUME 95 fl (80-97); MONOCYTES % (AUTO) 13.3 % (3-13); PLATELET COUNT 214 10^3/uL (150-450); RED BLOOD COUNT 3.74 10^6/uL (3.72-5.28); RED CELL DISTRIBUTION WIDTH 14.6 % (11.5-14.0); SEGMENTED NEUTROPHILS % (AUTO) 42.1 % (42-78); TOTAL CELLS COUNTED % (AUTO) 100 %; WHITE BLOOD COUNT 6.5 10^3/uL (4.0-10.5)
[2019-12-22] MEDS: OXYCODONE-ACETAMINOPHEN 5-325 MG TABLET PO PRN (06:14)
[2019-12-22] MEDS: NORMAL SALINE 1000 ML 1,000 ML IV PRN (06:16)
[2019-12-22 06:34] LABS: BLOOD UREA NITROGEN 11 mg/dL (7-20); CALCIUM 8.3 mg/dL (8.4-10.2); GLUCOSE 101 mg/dL (75-110); POTASSIUM 3.8 mmol/L (3.6-5.0)
[2019-12-22 06:40] LABS: CARBON DIOXIDE 26 mmol/L (22-30); CHLORIDE 106 mmol/L (98-107)
[2019-12-22 06:44] LABS: ANION GAP 3 (5-19)
[2019-12-22] MEDS ORDERED: CARVEDILOL 3.125 MG TABLET PO SCH (08:00)
[2019-12-22] MEDS ORDERED: CARVEDILOL 6.25 MG TABLET PO SCH (08:00)
[2019-12-22] MEDS: METFORMIN HCL 500 MG TABLET PO SCH (08:40)
[2019-12-22] MEDS ORDERED: VALSARTAN 80 MG TABLET PO SCH (10:00)
[2019-12-22] MEDS: INSULIN LISPRO 100 UNIT/ML 3 ML VIAL SUBCUT SCH ×2 (10:40→12:03)
[2019-12-22] MEDS: DIVALPROEX SODIUM 500 MG TAB.SR.24H PO SCH (10:44)
[2019-12-22] MEDS: FAMOTIDINE 20 MG TABLET PO SCH (10:44)
[2019-12-22] MEDS: FUROSEMIDE 20 MG TABLET PO SCH (10:44)
[2019-12-22] MEDS: ENOXAPARIN SODIUM INJ 30 MG/0.3 ML DISP.SYRIN SUBCUT SCH (10:44)
--- NOTE | 2019-12-22 10:45 | PDOC TRANSFER SUMMARY ---
Impression - Admit/DC Date/PCP Admission Date/Primary Care Provider: 12/18/19 15:11 RAJESH CISNEROS MD Discharge Date: 12/22/19 - Discharge Diagnosis (1) Hypertension Is this a current diagnosis for this admission?: Yes (2) Hypothermia Is this a current diagnosis for this admission?: Yes (3) Nausea and vomiting Is this a current diagnosis for this admission?: Yes (4) Anxiety Is this a current diagnosis for this admission?: Yes (5) Diabetes Is this a current diagnosis for this admission?: Yes (6) Generalized weakness Is this a current diagnosis for this admission?: Yes - Assessment Summary: 12/18/2019 Patient will be admitted for gentle hydration, physical therapy, occupational therapy evaluation. Blood cultures urine cultures are pending. Patient will be started on prophylactic antibiotics due to her hypothermia when she presented, even though she does not appear to be overtly septic. Lactic acid level x2 is normal 0.9, 0.8. CT head scan shows prominent ventricles, hydrocephalus, as well as microvascular ischemic changes Per the ER note patient has had nausea and vomiting however her complaint to me is "I hurt all over". Patient was taking Percocet at home and patient has been involved in a pain clinic in the past 12/19/2019 Patient states she feels much better who is in the room says he thinks she looks a lot better today than she did yesterday. Temperature 97.8 pulse of 91 blood pressure 172/67. Pressures are better now than when admitted but still elevated. Think a good systolic for her would be around 160 and a good diastolic would be around 70 White count is still normal 8.3 Electrolytes are normal C. difficile is negative no WBC in the stool Blood culture urine cultures are pending IV fluids of normal saline at 60/h Because her Depakote levels are low I am going to increase her Depakote Also going to increase her Coreg Continue the meropenem Family would like the patient to stay in the hospital for 3 nights so she qualifies for rehab at discharge 12/20/2019 Patient is sitting up in bed eating breakfast while speaking to me. His complaint is left wrist pain that she has had for over 4 years now.. Patient has been dissatisfied with the provider she is seen for this problem in the past. She has asked if I can x-ray her left wrist Patient appears to be medically stable [facility] We will transfer patient to p.o. antibiotics at time of discharge Patient will need 7 more days of p.o. antibiotics if discharged on December 20 12/21/2019 Actually feels fine in fact she says she feels better than on admission, her blood pressure continues to be elevated. Going to increase her Coreg again to 6.25 every 12 hours. Also going to add valsartan to her medications X-rays of the left wrist showed no bony abnormalities only possible small effusion of the joint Patient is being recommended for correction facility Will discontinue IV antibiotics since blood culture showed no growth and urine culture shows no growth 12/22/2019 Vital signs reveal the blood pressure to still be elevated 187/67 however I have just recently increased her Coreg and added Diovan to her regimen, expected to be coming down over the next several days. Previous pressures of been around 160/60. Patient was discharged on Coreg 6.25 twice daily Depakote 2000 mg twice daily Diovan 80 mg daily Lasix 20 mg daily and Pepcid 20 mg twice daily plus her other regular medications Patient was admitted to the hospital with persistent vomiting and generalized pain. Also when she was admitted it was thought that she had a urinary tract infection and she was confused. Patient was just given gentle hydration during her admission, blood cultures and urine culture showed no growth. She is mental status improved within 24 hours she was awake alert talking sitting up in the chair.. Family would like her to go for couple weeks of rehab which I agree with totally Patient has had some trouble with her blood pressure being elevated but she was not taking enough medication when she came in. Her hypertensive meds have been adjusted, she will need to be rechecked within the next several days concerning her blood pressure. No antibiotics are prescribed at this time though she did receive those while she was in the hospital. Patient is medically stable for transfer and seems satisfied with her visit - Additional Information Resuscitation Status: Do Not Resuscitate Discharge Activity: Balance Activity w/Rest Referrals: [facility] [Outside] RAJESH CISNEROS MD [Primary Care Provider] - Follow up as needed Prescriptions: Carvedilol [Coreg 6.25 mg Tablet] 6.25 mg PO QAM 30 Days #60 tablet Divalproex Sodium [Depakote ER 500 mg Tab.sr] 1,000 mg PO Q12 60 Days #120 tab.sr.24h Valsartan [Diovan 80 mg Tablet] 80 mg PO DAILY 30 Days #30 tablet Furosemide [Lasix 20 mg Tablet] 20 mg PO DAILY 30 Days #30 tablet Famotidine [Pepcid 20 mg Tablet] 20 mg PO Q12 30 Days #60 tablet Home Medications: Alprazolam [Xanax] 1 mg PO TIDP PRN 06/28/19 Donepezil HCl [Aricept] 5 mg PO QHS 06/28/19 Furosemide [Lasix 20 mg Tablet] 20 mg PO QAMP PRN 06/28/19 Metformin HCl [Metformin HCl ER] 1,000 mg PO BID 06/28/19 Oxycodone HCl/Acetaminophen [Percocet 7.5-325 mg Tablet] 1 each PO Q8HP PRN 06/28/19 Sertraline HCl [Zoloft] 200 mg PO DAILY 06/28/19 Zolpidem Tartrate [Ambien] 15 mg PO QHS 06/28/19 Triamcinolone Acetonide [Aristocort 0.1% Ointment] 1 applic TOP BIDP PRN 12/18/19 Acetaminophen [Tylenol 325 mg Tablet] 325 mg PO Q4HP PRN tablet 12/22/19 Alprazolam [Xanax 0.5 mg Tablet] 0.5 mg PO Q8HP PRN tablet 12/22/19 Carvedilol [Coreg 6.25 mg Tablet] 6.25 mg PO QAM 30 Days #60 tablet 12/22/19 Divalproex Sodium [Depakote ER 500 mg Tab.sr] 1,000 mg PO Q12 60 Days #120 tab.sr.24h 12/22/19 Docusate Sodium [Colace 100 mg Capsule] 100 mg PO DAILY capsule 12/22/19 Donepezil HCl [Aricept 5 mg Tablet] 5 mg PO QHS tablet 12/22/19 Famotidine [Pepcid 20 mg Tablet] 20 mg PO Q12 30 Days #60 tablet 12/22/19 Furosemide [Lasix 20 mg Tablet] 20 mg PO DAILY 30 Days #30 tablet 12/22/19 Mag Hydrox/Al Hydrox/Simeth [Maalox Plus Susp 30 Udcup] 30 ml PO Q6HP PRN udc 12/22/19 Magnesium Hydroxide [Milk of Magnesia 30 ml Udcup] 30 ml PO HSP PRN udc 12/22/19 Metformin HCl [Glucophage 500 mg Tablet] 1,000 mg PO BIDACBS tablet 12/22/19 Valsartan [Diovan 80 mg Tablet] 80 mg PO DAILY 30 Days #30 tablet 12/22/19 History of Present Illiness History of Present Illness: DEO ROBERTSON is a 74 year old female mated to the hospital for nausea, vomiting , and generalized pain. According to the patient and her who is in the room this is been going on for several days now if not longer. According to the ER physician who spoke to the son he is no longer able to care for his mother at home. Patient came to the emergency room she had a diaper on that was covered in stool as well as urine, patient was hypothermic and confused. Physical Exam Vital Signs: Temp Pulse Resp BP Pulse Ox 97.9 F 83 16 187/67 H 96 12/22/19 08:00 12/22/19 08:00 12/22/19 08:00 12/22/19 08:00 12/22/19 08:00 Intake & Output 12/21/19 12/22/19 12/23/19 06:59 06:59 07:59 Intake Total 2627 3162 Output Total 2700 2750 Balance -73 412 Weight 46.9 kg 46.9 kg Results Laboratory Results: WBC 6.5 10^3/uL (4.0-10.5) 12/22/19 05:45 RBC 3.74 10^6/uL (3.72-5.28) 12/22/19 05:45 Hgb 11.8 g/dL (12.0-15.5) L 12/22/19 05:45 Hct 35.5 % (36.0-47.0) L 12/22/19 05:45 MCV 95 fl (80-97) 12/22/19 05:45 MCH 31.6 pg (27.0-33.4) 12/22/19 05:45 MCHC 33.3 g/dL (32.0-36.0) 12/22/19 05:45 RDW 14.6 % (11.5-14.0) H 12/22/19 05:45 Plt Count 214 10^3/uL (150-450) 12/22/19 05:45 Lymph % (Auto) 40.0 % (13-45) 12/22/19 05:45 Stokes % (Auto) 13.3 % (3-13) H 12/22/19 05:45 Eos % (Auto) 3.9 % (0-6) 12/22/19 05:45 Baso % (Auto) 0.7 % (0-2) 12/22/19 05:45 Absolute Neuts (auto) 2.7 10^3/uL (1.7-8.2) 12/22/19 05:45 Absolute Lymphs (auto) 2.6 10^3/uL (0.5-4.7) 12/22/19 05:45 Absolute Monos (auto) 0.9 10^3/uL (0.1-1.4) 12/22/19 05:45 Absolute Eos (auto) 0.3 10^3/uL (0.0-0.6) 12/22/19 05:45 Absolute Basos (auto) 0.0 10^3/uL (0.0-0.2) 12/22/19 05:45 Seg Neutrophils % 42.1 % (42-78) 12/22/19 05:45 PT 11.7 SEC (11.4-15.4) 12/18/19 10:28 INR 0.86 12/18/19 10:28 VBG pH 7.34 (7.30-7.42) 12/18/19 11:37 VBG pCO2 42.2 mmHg (35-63) 12/18/19 11:37 VBG HCO3 22.3 mmol/L (20-32) 12/18/19 11:37 VBG Base Excess -3.3 mmol/L 12/18/19 11:37 Sodium 135.2 mmol/L (137-145) L 12/22/19 05:45 Potassium 3.8 mmol/L (3.6-5.0) 12/22/19 05:45 Chloride 106 mmol/L (98-107) 12/22/19 05:45 Carbon Dioxide 26 mmol/L (22-30) 12/22/19 05:45 Anion Gap 3 (5-19) L 12/22/19 05:45 BUN 11 mg/dL (7-20) 12/22/19 05:45 Creatinine 0.47 mg/dL (0.52-1.25) L 12/22/19 05:45 Est GFR ( Amer) > 60 (>60) 12/22/19 05:45 Est GFR (MDRD) Non-Af > 60 (>60) 12/22/19 05:45 Glucose 101 mg/dL (75-110) 12/22/19 05:45 POC Glucose 113 mg/dL (70-110) H 12/22/19 08:11 Hemoglobin A1c % 5.5 % (4.7-6.0) 12/18/19 10:28 Lactic Acid 0.9 mmol/L (0.7-2.1) 12/18/19 18:05 Calcium 8.3 mg/dL (8.4-10.2) L 12/22/19 05:45 Magnesium 1.6 mg/dL (1.6-2.3) 12/19/19 04:13 Total Bilirubin 0.5 mg/dL (0.2-1.3) 12/18/19 10:28 Direct Bilirubin 0.0 mg/dL (0.0-0.4) 12/18/19 10:28 Neonat Total Bilirubin Not Reportable 12/18/19 10:28 Neonat Direct Bilirubin Not Reportable 12/18/19 10:28 Neonat Indirect Bili Not Reportable 12/18/19 10:28 AST 20 U/L (14-36) 12/18/19 10:28 ALT 7 U/L (<35) 12/18/19 10:28 Alkaline Phosphatase 85 U/L (38-126) 12/18/19 10:28 Creatine Kinase 33 U/L (30-135) 12/18/19 12:14 CK-MB (CK-2) 0.87 ng/mL (<4.55) 12/18/19 12:14 Troponin I < 0.012 ng/mL 12/18/19 12:14 Total Protein 7.1 g/dL (6.3-8.2) 12/18/19 10:28 Albumin 4.0 g/dL (3.5-5.0) 12/18/19 10:28 TSH 1.68 uIU/mL (0.47-4.68) 12/18/19 10:28 Urine Color COLORLESS 12/18/19 12:30 Urine Appearance CLEAR 12/18/19 12:30 Urine pH 7.0 (5.0-9.0) 12/18/19 12:30 Ur Specific [place] 1.008 12/18/19 12:30 Urine Protein 30 mg/dL (NEGATIVE) H 12/18/19 12:30 Urine Glucose (UA) >=500 mg/dL (NEGATIVE) H 12/18/19 12:30 Urine Ketones TRACE mg/dL (NEGATIVE) H 12/18/19 12:30 Urine Blood NEGATIVE (NEGATIVE) 12/18/19 12:30 Urine Nitrite NEGATIVE (NEGATIVE) 12/18/19 12:30 Urine Bilirubin NEGATIVE (NEGATIVE) 12/18/19 12:30 Urine Urobilinogen NEGATIVE mg/dL (<2.0) 12/18/19 12:30 Ur Leukocyte Esterase NEGATIVE (NEGATIVE) 12/18/19 12:30 Urine WBC (Auto) 1 /HPF 12/18/19 12:30 Urine RBC (Auto) 1 /HPF 12/18/19 12:30 Squamous Epi Cells Auto <1 /HPF 12/18/19 12:30 Urine Mucus (Auto) RARE /LPF 12/18/19 12:30 Urine Ascorbic Acid NEGATIVE (NEGATIVE) 12/18/19 12:30 Stool for White Cells NO WBCs SEEN 12/18/19 14:51 Stl C. Difficile GDH Ag NEGATIVE (NEGATIVE) 12/18/19 14:51 Stl C.difficile Tox A&B NEGATIVE (NEGATIVE) 12/18/19 14:51 Valproic Acid < 10.0 ug/mL (50.0-120.0) L 12/18/19 12:48 12/18/19 12:14 CK-MB (CK-2) 0.87 Troponin I < 0.012 Impressions: Chest X-Ray 12/18/19 14:17 IMPRESSION: Mild chronic lung changes with no acute cardiopulmonary finding. Head CT 12/18/19 15:02 IMPRESSION: CHRONIC CHANGES OF ATROPHY AND MICROVASCULAR ISCHEMIA. NO ACUTE PROCESS. EVIDENCE OF ACUTE STROKE: NO. Wrist X-Ray 12/20/19 00:00 IMPRESSION: Dorsal left wrist soft tissue swelling without acute fracture or malalignment. Stroke Is this a Stroke Patient?: No Acute Heart Failure - Is this a Heart Failure Patient?: No
[2019-12-22] MEDS: DOCUSATE SODIUM 100 MG CAPSULE PO SCH (10:49)
[2019-12-22 15:23] VITALS: BP 193/55
== END 2019-12-22 16:09 | DRG 392 ==
LOC: ER 10:38 → EH 15:11 → 5 17:08
PROVIDERS: ADMIT Hospitalist; ATTEND Hospitalist
DX: K52.9 Noninfective gastroenteritis and colitis, unspecified (principal); G91.9 Hydrocephalus, unspecified; I10 Essential (primary) hypertension; F03.90 Unspecified dementia, unspecified severity, without behavioral disturbance, psychotic disturbance, mood disturbance, and anxiety; T68.XXXA Hypothermia, initial encounter; F41.9 Anxiety disorder, unspecified; E11.9 Type 2 diabetes mellitus without complications; E78.5 Hyperlipidemia, unspecified; F17.210 Nicotine dependence, cigarettes, uncomplicated; E78.00 Pure hypercholesterolemia, unspecified; I44.0 Atrioventricular block, first degree; I25.2 Old myocardial infarction; Z23 Encounter for immunization; Z66 Do not resuscitate; Z79.899 Other long term (current) drug therapy; Z79.84 Long term (current) use of oral hypoglycemic drugs; Z96.651 Presence of right artificial knee joint; Z88.0 Allergy status to penicillin
CPT/HCPCS: 36415; 51702; 70450; 71045; 80048; 80053; 80164; 81001; 82550; 82553; 82803; 82962; 83036; 83605; 83735; 84443; 84484; 85025; 85610; 87040; 87045; 87086; 87205; 87324; 87449; 89055; 90686; 93005; 93010; 96374; 96375; 99285; J0360; J1650; J1815; J2185; J2405; J3490; J7030; J7040

== ENCOUNTER 2020-04-17 11:09 | Emergency (ER) | payer MEDICARE, OTHER ==
[2020-04-17 12:35] LABS: ABSOLUTE EOSINOPHILS # (AUTO) 0.3 10^3/uL (0.0-0.6); ABSOLUTE LYMPHOCYTES (AUTO) 1.7 10^3/uL (0.5-4.7); ABSOLUTE MONOCYTES (AUTO) 0.5 10^3/uL (0.1-1.4); ABSOLUTE NEUT (AUTO) 3.1 10^3/uL (1.7-8.2); BASOPHILS % (AUTO) 0.4 % (0-2); EOSINOPHILS % (AUTO) 4.6 % (0-6); HEMATOCRIT 35.4 % (36.0-47.0); HEMOGLOBIN 12.4 g/dL (12.0-15.5); LYMPHOCYTES % (AUTO) 30.7 % (13-45); MEAN CORPUSCULAR HEMOGLOBIN 33.9 pg (27.0-33.4); MEAN CORPUSCULAR VOLUME 97 fl (80-97); MONOCYTES % (AUTO) 9.5 % (3-13); PLATELET COUNT 259 10^3/uL (150-450); RED BLOOD COUNT 3.65 10^6/uL (3.72-5.28); RED CELL DISTRIBUTION WIDTH 15.6 % (11.5-14.0); SEGMENTED NEUTROPHILS % (AUTO) 54.8 % (42-78); TOTAL CELLS COUNTED % (AUTO) 100 %; WHITE BLOOD COUNT 5.6 10^3/uL (4.0-10.5)
[2020-04-17 12:55] LABS: APPEARANCE,URINE CLOUDY; BILIRUBIN,URINE NEGATIVE (NEGATIVE); COLOR,URINE YELLOW; GLUCOSE, URINE NEGATIVE (NEGATIVE); KETONES,URINE 20 mg/dL (NEGATIVE); LEUKOCYTE ESTERASE,URINE SMALL (NEGATIVE); NITRITE,URINE NEGATIVE (NEGATIVE); PROTEIN,URINE 30 mg/dL (NEGATIVE); URINE SPECIFIC GRAVITY 1.024; UROBILINOGEN,URINE NEGATIVE mg/dL (<2.0)
[2020-04-17 13:05] LABS: ALBUMIN 3.3 g/dL (3.5-5.0); ALKALINE PHOSPHATASE 38 U/L (38-126); ANION GAP 6 (5-19); ASPARTATE AMINO TRANSFERASE 24 U/L (14-36); BILIRUBIN,TOTAL 0.5 mg/dL (0.2-1.3); BLOOD UREA NITROGEN 15 mg/dL (7-20); CALCIUM 8.8 mg/dL (8.4-10.2); CARBON DIOXIDE 23 mmol/L (22-30); CHLORIDE 108 mmol/L (98-107); GLUCOSE 88 mg/dL (75-110); POTASSIUM 3.8 mmol/L (3.6-5.0); TOTAL PROTEIN 6.1 g/dL (6.3-8.2)
[2020-04-17 14:59] VITALS: BP 164/71
--- NOTE | 2020-04-17 15:29 | RADIOLOGY REPORT (SQ) ---
EXAM DESCRIPTION: CHEST SINGLE VIEW IMAGES COMPLETED DATE/TIME: 04/17/2020 2:54 pm REASON FOR STUDY: dyspnea COMPARISON: 12/18/2019 EXAM PARAMETERS: NUMBER OF VIEWS: One view. TECHNIQUE: Single frontal radiographic view of the chest acquired. RADIATION DOSE: NA LIMITATIONS: None. FINDINGS: LUNGS AND PLEURA: Mild chronic interstitial changes. No acute infiltrate, effusion, or ma ss. MEDIASTINUM AND HILAR STRUCTURES: No masses. Contour normal. HEART AND VASCULAR STRUCTURES: Heart normal in size. Normal vasculature. BONES: No acute findings. HARDWARE: None in the chest. OTHER: No other significant finding. IMPRESSION: Mild chronic lung changes. TECHNICAL DOCUMENTATION: JOB ID: [id number] 2010 [email or web address]- All Rights Reserved Reading location - IP/workstation name: [email or web address]
--- NOTE | 2020-04-17 15:48 | ER Document Report ---
ED General - General Chief Complaint: Nausea/Vomiting Stated Complaint: NAUSEA/GENERAL MALAISE Time Seen by Provider: 04/17/20 13:54 Primary Care Provider: RAJESH CISNEROS MD [Primary Care Provider] - Follow up as needed TRAVEL OUTSIDE OF THE [place] IN LAST 30 DAYS: No - HPI Notes: Chief complaint: Vomiting and feet swelling History of present illness: 75-year-old female with longstanding history of CHF and chronic/recurrent urinary tract infections transported here by EMS with family noting concern that she is "generally not doing well" over the last week. She vomited once today. Complains of mild dysuria. No fever or chills. Patient also indicates that she was taken off her Lasix recently for reasons which are unclear to her. She says her feet are swelling a little more now and she feels like she needs to be back on the medication. She denies chest pain. She denies palpitations. She denies shortness of breath. - Related Data Allergies/Adverse Reactions: Penicillins Allergy (Verified 06/28/19 08:00) Home Medications: Pt. arrived via EMS C/O of nausea and vomiting. Pt. states that she has not been feeling well for a couple of days. Pt. is A & O x4, breathing is even and unlabored. NAD at this time. Past Medical History - General Information source: Patient, [facility] Records - Social History Smoking Status: Current Every Day Smoker Chew tobacco use (# tins/day): No Frequency of alcohol use: None Drug Abuse: None Family History: Reviewed & Not Pertinent Patient has homicidal ideation: No - Past Medical History Cardiac Medical History: Reports: Hx Heart Attack - 2018, Hx Hypercholesterolemia Denies: Hx Coronary Artery Disease, Hx Hypertension Pulmonary Medical History: Reports: Hx COPD - DOES NOT USE INHALERS Denies: Hx Asthma, Hx Bronchitis, Hx Pneumonia Neurological Medical History: Denies: Hx Cerebrovascular Accident, Hx Seizures Endocrine Medical History: Reports: Hx Diabetes Mellitus Type 2 Renal/ Medical History: Denies: Hx Peritoneal Dialysis Musculoskeletal Medical History: Reports Hx Arthritis - RIGHT KNEE Past Surgical History: Reports: Hx Appendectomy, Hx Orthopedic Surgery - R. knee replacement right wrist, Hx Tubal Ligation - Immunizations Hx Diphtheria, Pertussis, Tetanus Vaccination: Yes Hx Pneumococcal Vaccination: 07/17/12 Review of Systems - Review of Systems Notes: Constitutional: Negative for fever. HENT: Negative for sore throat. Eyes: Negative for visual changes. Cardiovascular: As per HPI. Respiratory: As per HPI. Gastrointestinal: Vomited once prior to arrival here. No longer nauseated. Genitourinary: Negative for dysuria. Musculoskeletal: Negative for back pain. Skin: Negative for rash. Neurological: Negative for headaches, weakness or numbness. 10 point ROS negative except as marked above and in HPI. Physical Exam - Vital signs Vitals: Temp 98.2 F 04/17/20 11:09 - Notes Notes: GENERAL: Mildly disheveled elderly female in no acute distress. SKIN: Good turgor no rashes. HEAD: Normocephalic atraumatic. EYES: PERRLA. EOMI. Conjunctivae and sclerae clear. EARS: CANALS AND TMS CLEAR. NOSE: CLEAR. MOUTH: Moist mucosa. Good dentition. No stridor or edema. No drooling. NECK: Supple. No masses or thyromegaly. No adenopathy. Carotids 2+ without bruits. No JVD. BACK: Symmetrical without tenderness. CHEST: Respirations unlabored. Breath sounds clear and symmetrical. HEART: Regular rhythm. No murmur gallop or rub. ABDOMEN: Soft nontender without masses, organomegaly or rebound. Bowel sounds normally active. No bruits. GENITALIA: Deferred. EXTREMITIES: 1+ bilateral pretibial. No calf tenderness. Cap refill less than 1.5 seconds. Dorsalis pedis and posterior tibial pulses 3+ and symmetrical. NEUROLOGICAL: GCS 15. Alert and oriented x3. Fluent speech. Cranial nerves II through XII intact. Sensorimotor and cerebellar normal. Normal tone. PSYCHIATRIC: Appropriate affect. Course - Re-evaluation Re-evalutation: 04/17/20 15:51 Findings are consistent with mild cardiac decompensation. Urine specimen will be cultured. I am going to restart her on Lasix. I will send her home with a prescription for Zofran and Lasix. - Vital Signs Vital signs: Temp Pulse Resp BP Pulse Ox 98.7 F 19 164/71 H 96 04/17/20 14:01 04/17/20 14:01 04/17/20 14:01 04/17/20 14:01 - Laboratory Result Diagrams: 04/17/20 12:13 04/17/20 12:13 Laboratory results interpreted by me: 04/17/20 04/17/20 04/17/20 12:13 12:13 12:13 RBC 3.65 L Hct 35.4 L MCH 33.9 H RDW 15.6 H Sodium 136.7 L Chloride 108 H NT-Pro-B Natriuret Pep 1300 H Total Protein 6.1 L Albumin 3.3 L Urine Protein Urine Ketones Urine Blood Ur Leukocyte Esterase 04/17/20 12:28 RBC Hct MCH RDW Sodium Chloride NT-Pro-B Natriuret Pep Total Protein Albumin Urine Protein 30 H Urine Ketones 20 H Urine Blood SMALL H Ur Leukocyte Esterase SMALL H - Diagnostic Test Radiology reviewed: Reports reviewed - Per radiologist: Portable chest x-ray consistent with COPD with no acute infiltrate. - EKG Interpretation by Me Additional EKG results interpreted by me: 04/17/20 15:56 Twelve-lead EKG from 1359 hrs. reviewed contemporaneously by me showing normal sinus rhythm with a rate of 93 and changes of left ventricular hypertrophy. No acute ST/T wave changes. Borderline prolongation of QT interval with corrected QTC of 488 ms. QRS axis is +60 degrees. No significant interval change noted compared to prior study of 12/18/2019. Indication for current study: Vomiting. Discharge - Discharge Clinical Impression: CHF, Vomiting Nausea and vomiting Qualifiers: Vomiting type: unspecified Vomiting Intractability: non-intractable Qualified Code(s): R11.2 - Nausea with vomiting, unspecified Condition: Stable Disposition: HOME, SELF-CARE Additional Instructions: Return here as needed for new or worsening symptoms. Take prescribed medications as directed. Stop smoking. Follow-up with your primary care physician within the next 1 week. Prescriptions: Furosemide [Lasix 20 mg Tablet] 20 mg PO QAM #30 tablet Ondansetron [Zofran Odt 4 mg Tablet] 1 - 2 tab PO Q4H PRN #15 tab.rapdis PRN Reason: For Nausea/Vomiting Forms: Smoking Cessation Education Referrals: RAJESH CISNEROS MD [Primary Care Provider] - Follow up as needed
[2020-04-17] MEDS ORDERED: FUROSEMIDE 20 MG TABLET PO ONE (15:52)
--- NOTE | 2020-04-17 19:35 | EKG REPORT ---
SEVERITY:- ABNORMAL ECG - SINUS RHYTHM CONSIDER RVH OR POSTERIOR INFARCT CONSIDER ANTERIOR INFARCT NONSPECIFIC T ABNORMALITIES, LATERAL LEADS BORDERLINE PROLONGED QT INTERVAL : Confirmed by: Johana East MD 17-Apr-2020 19:34:25
== END 2020-04-17 16:38 | disposition home or self-care (01) ==
LOC: ER 11:09
DX: R11.2 Nausea with vomiting, unspecified (principal); I50.9 Heart failure, unspecified; R30.0 Dysuria; I25.2 Old myocardial infarction; J44.9 Chronic obstructive pulmonary disease, unspecified; E11.9 Type 2 diabetes mellitus without complications; F17.200 Nicotine dependence, unspecified, uncomplicated; Z88.0 Allergy status to penicillin
CPT/HCPCS: 93005; 99284; 36415; 83690; 85025; 80053; 81001; 84484; 83880; 71045; 93010; A9270